=== PATIENT | female | born 1995 | race Two or more races ===

== ENCOUNTER 2016-11-03 08:06 | Outpatient (CLI) | payer OTHER ==
[2016-11-03 08:41] LABS: APPEARANCE,URINE SLIGHTLY-CLOUDY; BILIRUBIN,URINE NEGATIVE (NEGATIVE); GLUCOSE, URINE NEGATIVE (NEGATIVE); KETONES,URINE NEGATIVE (NEGATIVE); LEUKOCYTE ESTERASE,URINE MODERATE (NEGATIVE); NITRITE,URINE NEGATIVE (NEGATIVE); PROTEIN,URINE 30 mg/dL (NEGATIVE); URINE SPECIFIC GRAVITY 1.023; UROBILINOGEN,URINE NEGATIVE mg/dL (<2.0)
[2016-11-03 09:10] LABS: URINE BARBITURATES SCREEN NEGATIVE; URINE METHADONE SCREEN NEGATIVE; URINE OPIATES LOW NEGATIVE; URINE PHENCYCLIDINE SCREEN NEGATIVE
--- NOTE | 2016-11-03 09:18 | Non Stress Test Report ---
Non Stress Test Datetime Report Generated by CPN: 11/03/2016 09:18 DEMOGRAPHIC EGA NST: 38.0 INDICATION Indication for Study: Ordered by Provider Indication for Study (NST) Other: LC MONITORING Monitor Explained: Monitor Explained; Test Explained; Patient Verbalized Understanding Time on Monitor: 11/03/2016 08:23 Time off Monitor: 11/03/2016 08:59 NST Duration: 36 NST INTERVENTIONS NST Interventions: PO Hydration; Reposition Patient Physician Notified NST: KElizabet Miller CNM BABY A: [id number] BABY A Movement : Present Contraction Frequency : irreguar FHR Baseline : 150 Accelerations : 15X15 Decelerations : None Variability : Moderate 6-25bpm NST Review: Meets Criteria for Reactive NST NST Review and Verified By : Aubree Sahni RN NST Results: Reactive NST REPORT Report Trigger: Send Report
--- NOTE | 2016-11-03 22:47 | L&D Discharge Summary ---
OB Discharge Summary Datetime Report Generated by CPN: 11/03/2016 22:46 DISCHARGE DIAGNOSIS Diagnosis/Symptoms: False Labor Gestation: 38.0 Number of Babies in Womb: 1 Parity: 0 DIET/ACTIVITY/RESTRICTIONS Diet: Regular Activity: Normal Activity TEACHING/INSTRUCTIONS/REFERRALS Instructions Given To: Patient/ Instructions Understood: Patient Verbalized Understanding; Support Person Verbalized Understanding Referrals: None Educational Materials- Other: Kick [facility] Full Term Labor DISCHARGE INFORMATION Discharged AMA: No Discharge Date/Time: 11/03/2016 10:20 Discharged To: Home Discharge Provider Name: Patrick Miller CNM Accompanied By: Discharge Method: Ambulatory Condition: Stable FOLLOW UP INFORMATION Follow Up With: [facility] Follow Up On: As Scheduled Follow Up Phone Number: [facility] - GENERAL INSTR-CALL PROVIDER IF: Contractions: Contractions or cramps become more frequent than 8 in one hour or 4 in 20 minutes; Regular painful contractions every 5 minutes or less for one hour. Time your contractions from the beginning of one to the beginning of the next Pressure: Pressure in your vagina or lower abdomen that may feel like the baby is pushing down Gush of Fluid/Blood: Gush of fluid or blood from your vagina (it is normal to have spotting after vaginal exam or intercourse) Vaginal Discharge: Change in the type or amount of vaginal discharge Decreased Movement: Your baby is not moving as much as usual- 4 movements in 1 hour after drinking and resting on side
--- NOTE | 2016-11-08 14:33 | L&D General Admission ---
General Admit Datetime Report Generated by CPN: 11/08/2016 14:33 INFORMATION Patient Age: 20 (11/03/2016 08:06:QS system process) EDC: 11/17/2016 00:00 (11/03/2016 08:29:Noris Broman, RN) : 1 (11/03/2016 08:29:Noris Broman, RN) Para: 0 (11/03/2016 08:29:Noris Broman, RN) CARE Primary Cash Crop Farmer: [facility] (11/03/2016 08:29:Noris Merino RN) Adequate Care: Yes (11/03/2016 08:29:Noris Merino RN) ALLERGIES Medication Allergy: No (11/03/2016 08:29:Noris Merino RN) Medication Allergies: No Known Allergies (11/03/2016) (11/03/2016 08:32:QS system process) Latex Allergy: No Latex Allergies (11/03/2016 08:29:Noris Merino RN) COMMUNICATION Primary Language: Citizen Of [place] (11/03/2016 08:29:Noris Merino RN) Medical Tx Preferred Language: Citizen Of [place] (11/03/2016 08:29:Kristin Sahni RN) DEMOGRAPHICS Address: [address] [place] [address] (11/03/2016 08:06:QS system process) Zipcode: [address] (11/03/2016 08:06:QS system process) Home (11/03/2016 08:06:QS system process) SSN: [id number] (11/03/2016 08:06:QS system process) Next of Kin Name: EHSAN MCCOLLUM (11/03/2016 08:06:QS system process) Next of Kin (11/03/2016 08:06:QS system process) Next of Kin Relationship: SPO (11/03/2016 08:06:QS system process) Date of : 1995 (11/03/2016 08:06:QS system process) Marital Status: (11/03/2016 08:06:QS system process) Sex: Female (11/03/2016 08:06:QS system process) Race: Other (11/03/2016 08:06:QS system process) Ethnicity: or (11/03/2016 08:06:QS system process) Spiritism: None (11/03/2016 08:06:QS system process) DRUG AND ALCOHOL USE Alcohol: No (11/03/2016 08:29:Noris Merino RN) Cigarettes: Never Smoker. [id number] (11/03/2016 08:29:Noris Merino RN) Marijuana: No (11/03/2016 08:29:Noris Merino RN) Cocaine: No (11/03/2016 08:29:Noris Merino RN) Other Illicit Drugs: No (11/03/2016 08:29:Noris Merino RN) VACCINE HISTORY Influenza Vaccine: Yes (11/03/2016 08:29:Noris Merino RN) Influenza Date: 06/02/16 (11/03/2016 08:29:Noris Merino RN) Pneumococcal Vaccine: No (11/03/2016 08:29:Noris Merino RN) Tetanus Vaccine: Yes (11/03/2016 08:29:Noris Merino RN) Tetanus Date: 08/25/16 (11/03/2016 08:29:Noris Merino RN) Tdap Vaccine: Yes (11/03/2016 08:29:Noris Merino RN) Tdap Date: 08/25/16 (11/03/2016 08:29:Noris Merino RN) Hepatitis B Vaccine: Uncertain (11/03/2016 08:29:Noris Merino RN) Fruit Or Nut Farm Worker: [facility] (11/03/2016 08:29:Noris Merino RN) Feeding Preference: Breast (11/03/2016 08:29:Noris Merino RN) Benefit of Breast Feed Discussed: Yes (11/03/2016 08:29:Noris Merino RN) Circumcision: Yes (11/03/2016 08:29:Noris Merino RN) Classes Attended: No (11/03/2016 08:29:Noris Merino RN) Tubal Ligation: No (11/03/2016 08:29:Noris Merino RN) Tubal Authorization Signed: N/A (11/03/2016 08:29:Noris Merino RN) Consent: N/A (11/03/2016 08:29:Noris Merino RN) Consent Signed: N/A (11/03/2016 08:29:Noris Merino RN) Pain Management Plans: Epidural (11/03/2016 08:29:Noris Merino RN) Plans for Labor and Delivery: Cord Blood Donation (11/03/2016 08:29:Noris Merino RN) Support Person: Ehsan Mccollum (11/03/2016 08:29:Noris Merino RN) Support Person Relationship: (11/03/2016 08:29:Noris Merino RN) Cultural/Spritual Practice: No (11/03/2016 08:29:Noris Merino RN) Spir/Cult Dietary Needs: No (11/03/2016 08:29:Noris Merino RN) LIVING SITUATION/DISCHARGE PLAN Living Arrangements: House (11/03/2016 08:29:Noris Merino RN) Adequate Access to:: Electric; Heat; Refrigeration; Plumbing/Running water; Phone; Transportation (11/03/2016 08:29:Noris Merino RN) WIC Program: No (11/03/2016 08:29:Noris Merino RN) Discharge [place]keshoe Repairer Person: Ehsan Mccollum (11/03/2016 08:29:Noris Merino RN) Person to Help after Discharge: Ehsan Mccollum (11/03/2016 08:29:Noris Merino RN) Currently Using Commun Resources: No (11/03/2016 08:29:Noris Merino RN) Outside Agency/Senior Procurement Specialist: No (11/03/2016 08:29:Noris Merino RN) Car Seat for Discharge: Yes (11/03/2016 08:29:Noris Merino RN) Adoption Requested: No (11/03/2016 08:29:Noris Merino RN) LABS Blood Type: O Positive (11/03/2016 08:29:Noris Merino RN) Antibody Screen: Negative (11/03/2016 08:29:Noris Merino RN) Group Beta Strep: Negative (11/03/2016 08:29:Noris Merino RN) Gonorrhea: Negative (11/03/2016 08:29:Noris Merino RN) Chlamydia: Negative (11/03/2016 08:29:Noris Merino RN) RPR/VDRL: Nonreactive (11/03/2016 08:29:Noris Merino RN) HIV Results: Negative (11/03/2016 08:29:Noris Merino RN) Hepatitis B: Negative (11/03/2016 08:29:Noris Merino RN) Rubella: Immune (11/03/2016 08:29:Noris Merino RN) OB/PREVIOUS HISTORY Previous Procedures: None (11/03/2016 08:29:Noris Merino RN) Current Procedures: Ultrasound; NST (11/03/2016 08:29:Noris Merino RN) History of Previous : No (11/03/2016 08:29:Noris Merino RN) History of Gestational Diabetes: Yes (11/03/2016 08:29:Noris Merino RN) History of PIH: No (11/03/2016 08:29:Noris Merino RN) History of Incompetent Cervix: No (11/03/2016 08:29:Noris Merino RN) History of Placenta Previa/Abrup: No (11/03/2016 08:29:Noris Merino RN) History of Macrosomia: No (11/03/2016 08:29:Noris Merino RN) History of IUGR: No (11/03/2016 08:29:Noris Merino RN) History of Hemorrhage: No (11/03/2016 08:29:Noris Merino RN) History of Loss/Stillborn: No (11/03/2016 08:29:Noris Merino RN) History of : No (11/03/2016 08:29:Noris Merino RN) History of D (Rh) Sensitization: No (11/03/2016 08:29:Noris Merino RN) History Recurrent Loss/Stillborn: No (11/03/2016 08:29:Noris Merino RN) History Depression/PP Depression: No (11/03/2016 08:29:Noris Merino RN) History of Uterine Anomaly/HIRO: No (11/03/2016 08:29:Noris Merino RN) History of Infertility: No (11/03/2016 08:29:Noris Merino RN) History of ART Treatment: No (11/03/2016 08:29:Noris Merino RN) History of HIRO: No (11/03/2016 08:29:Noris Merino RN) MEDICAL HISTORY Med Hx Hypertension: No (11/03/2016 08:29:Noris Merino RN) Med Hx Heart Disease: No (11/03/2016 08:29:Noris Merino RN) Med Hx Autoimmune Disorder: No (11/03/2016 08:29:Noris Merino RN) Med Hx Kidney Disease/UTI: No (11/03/2016 08:29:Noris Merino RN) Med Hx Neurologic/Epilepsy: No (11/03/2016 08:29:Noris Merino RN) Med Hx Psychiatric Disorders: No (11/03/2016 08:29:Noris Merino RN) Med Hx Hepatitis/Liver Disease: No (11/03/2016 08:29:Noris Merino RN) Med Hx Varicosities/Phlebitis: No (11/03/2016 08:29:Noris Merino RN) Med Hx Thyroid Dysfunction: No (11/03/2016 08:29:Noris Merino RN) Med Hx Trauma/Violence: No (11/03/2016 08:29:Noris Merino RN) Med Hx Blood Transfusion: No (11/03/2016 08:29:Noris Merino RN) Med Hx Pulmonary (Asthma,TB): No (11/03/2016 08:29:Noris Merino RN) Med Hx Breast: No (11/03/2016 08:29:Noris Merino RN) Med Hx VASCULAR TECH Surgery: No (11/03/2016 08:29:Noris Merino RN) Med Hx Hospitalization/Surgery: No (11/03/2016 08:29:Nrois Merino RN) Med Hx Anesthetic Complications: No (11/03/2016 08:29:Noris Merino RN) Med Hx Abnormal Pap Smear: No (11/03/2016 08:29:Noris Merino RN) Other Medical Diseases: No (11/03/2016 08:29:Noris Merino RN) Med Hx Significant Family Hx: No (11/03/2016 08:29:Noris Merino RN) INFECTIOUS HISTORY Inf Hx Gonorrhea: No (11/03/2016 08:29:Noris Merino RN) Inf Hx Chlamydia: No (11/03/2016 08:29:Noris Merino RN) Inf Hx Syphilis: No (11/03/2016 08:29:Noris Merino RN) Inf Hx HIV/AIDS: No (11/03/2016 08:29:Noris Merino RN) Inf Hx Human Papilloma Virus: No (11/03/2016 08:29:Noris Merino RN) Inf Hx Pt/Partner Genital Herpes: No (11/03/2016 08:29:Noris Merino RN) Inf Hx Tuberculosis/Exposure: No (11/03/2016 08:29:Noris Merino RN) Inf Hx Hepatitis B,C: No (11/03/2016 08:29:Noris Merino RN) Inf Hx Rash or Viral Illness: No (11/03/2016 08:29:Noris Merino RN) GENETIC HISTORY Gen Hx Age >=35 at DAYANARA: No (11/03/2016 08:29:Noris Merino RN) Gen Hx Thalassemia: No (11/03/2016 08:29:Noris Merino RN) Gen Hx Congenital Heart Defect: No (11/03/2016 08:29:Noris Merino RN) Gen Hx Neural Tube Defect: No (11/03/2016 08:29:Noris Merino RN) Gen Hx Down's Syndrome: No (11/03/2016 08:29:Noris Merino RN) Gen Hx Osmany-Sachs: No (11/03/2016 08:29:Noris Merino RN) Gen Hx Lucila: No (11/03/2016 08:29:Noris Merino RN) Gen Hx Familial Dysautonomia: No (11/03/2016 08:29:Noris Merino RN) Gen Hx Sickle Cell Disease/Trait: No (11/03/2016 08:29:Noris Merino RN) Gen Hx Hemophilia/Blood Disorder: No (11/03/2016 08:29:Noris Merino RN) Gen Hx Muscular Dystrophy: No (11/03/2016 08:29:Noris Merino RN) Gen Hx Cystic Fibrosis: No (11/03/2016 08:29:Noris Mernio RN) Gen Hx Huntingtons Chorea: No (11/03/2016 08:29:Noris Merino RN) Gen Hx Mental Retardation/Autism: No (11/03/2016 08:29:Noris Merino RN) Gen Hx Tested for Fragile X: No (11/03/2016 08:29:Noris Merino RN) Gen Hx Other Inher/Chromosomal: No (11/03/2016 08:29:Noris Merino RN) Gen Hx Maternal Metabolic DO: No (11/03/2016 08:29:Noris Merino RN) Gen Hx Pt Father or FOB Defect: No (11/03/2016 08:29:Noris Merino RN) Gen Hx Other Genetic History: No (11/03/2016 08:29:Noris Merino RN) Gen Hx Drugs/Meds since LMP: No (11/03/2016 08:29:Noris Merino RN)
--- NOTE | 2016-11-08 14:33 | L&D Current Admission ---
Current Admit Datetime Report Generated by CPN: 11/08/2016 14:33 ADMISSION INFORMATION Chief Complaint: Contractions (11/03/2016 08:45:Noris Merino RN)
--- NOTE | 2016-11-08 14:34 | L&D Admission Assessment ---
LD ADM ASMT Datetime Report Generated by CPN: 11/08/2016 14:33 PATIENT ASSESSMENT Assessment Type: Admission Assessment (11/03/2016 08:45:Noris Brommontserrat, RN) PAIN Pain Scale: 1 (11/03/2016 08:45:Noris Wilber, RN) Pain Presence: Intermittent (11/03/2016 08:45:Noris Wilber, RN) Pain Type: Cramping; Contraction (11/03/2016 08:45:Noris Wilber RN) Pain Location: Abdomen (11/03/2016 08:45:Noris Broman, RN) Pain Goal: 0 (11/03/2016 08:45:Noris Brommontserrat, RN) Pain Related to Contraction: Yes (11/03/2016 08:45:Noris Brommontserrat, RN) CONTRACTIONS Frequency (min): irregular (11/03/2016 08:49:Noris Brommontserrat, RN) Quality: Mild/Moderate (11/03/2016 08:49:Noris Broman, RN) Pattern: Normal: <= 5 Contractions in 10 Minutes (11/03/2016 08:49:Noris Broman, RN) Resting Tone [place] [address]: Relaxed (11/03/2016 08:49:Noris Broman, RN) VAGINAL EXAM Dilatation (cm): 2.5 (11/03/2016 10:02:Noris Merino RN) Dilatation (cm): 2.5 (11/03/2016 08:36:Kristin Sahni RN) Effacement (%): 80 (11/03/2016 10:02:Noris Merino RN) Effacement (%): 80 (11/03/2016 08:36:Kristin Kaitlyn, RN) Station: -2 (11/03/2016 10:02:Noris Broman, RN) Station: -2 (11/03/2016 08:36:Kristin Kaitlyn, RN) Membranes Status: Intact (11/03/2016 08:45:Noris Broman, RN) NEURO Level of Consciousness: Fully Conscious (11/03/2016 08:45:Noris Broman, RN) DTR's/Clonus: DTRs 2+; No Clonus (11/03/2016 08:45:Noris Broman, RN) Headache: Denies (11/03/2016 08:45:Noris Broman, RN) Dizziness: No (11/03/2016 08:45:Noris Broman, RN) Blurred Vision: No (11/03/2016 08:45:Noris Broman, RN) Extremity Numbness/Tingling : None (11/03/2016 08:45:Noris Broman, RN) Extremity Movement: Full Range of Motion (11/03/2016 08:45:Noris Broman, RN) CARDIOVASCULAR Heart Rhythm: Regular (11/03/2016 08:45:Noris Broman, RN) Nailbeds: [place] (11/03/2016 08:45:Noris Broman, RN) Capillary Refill: Less than 3 Seconds (11/03/2016 08:45:Noris Broman, RN) Lower Extremities Edema: None (11/03/2016 08:45:Noris Broman, RN) Lower Extremities Edema Degree: None (11/03/2016 08:45:Noris Broman, RN) Upper Extremities Edema: None (11/03/2016 08:45:Noris Broman, RN) Upper Extremities Edema Degree: None (11/03/2016 08:45:Noris Broman, RN) Facial Edema: None (11/03/2016 08:45:Noris Broman, RN) DVT RISK ASSESSMENT DVT Risk Age: Age less than 41 years (11/03/2016 08:45:Noris Broman, RN) DVT Risk BMI: BMI<31 (11/03/2016 08:45:Noris Broman, RN) DVT Risk Surgery: None Applicable (11/03/2016 08:45:Noris Broman, RN) RESPIRATORY Respiratory Effort: Unlabored; Regular Rhythm; Equal Expansion (11/03/2016 08:45:Noris Broman, RN) Breath Sounds, Left: Clear and Equal (11/03/2016 08:45:Noris Broman, RN) Breath Sounds, Right: Clear and Equal (11/03/2016 08:45:Noris Broman, RN) Cough Productivity: None (11/03/2016 08:45:Noris Broman, RN) GASTROINTESTINAL Nausea/Vomiting: Denies (11/03/2016 08:45:Noris Broman, RN) Bowel Sounds: Normoactive; All Quadrants (11/03/2016 08:45:Noris Broman, RN) RUQ Epigastric Pain: Denies (11/03/2016 08:45:Noris Broman, RN) Bowel Patterns: Loose Stool (11/03/2016 08:45:Noris Broman, RN) Hemorrhoids: None (11/03/2016 08:45:Noris Broman, RN) Diet Type: Regular diet (11/03/2016 08:45:Noris Broman, RN) Last Meal: 11/02/2016 21:00 (11/03/2016 08:45:Noris Broman, RN) GENITOURINARY Bladder: Nondistended (11/03/2016 08:45:Noris Brommontserrat, RN) Frequency of Urination: Yes (11/03/2016 08:45:Noriswilbert Merino, RN) Urination Burning: No (11/03/2016 08:45:Noris Broman, RN) CVA Tenderness: No (11/03/2016 08:45:Noris Brommontserrat, RN) Vaginal Bleeding: None (11/03/2016 08:45:Noris Brommontserrat, RN) Vaginal Discharge Amount: Small (11/03/2016 08:45:Nrois Brommontserrat, RN) Vaginal Discharge Color: White (11/03/2016 08:45:Noris Brommontserrat, RN) Vaginal Discharge Odor: Non-Odorous (11/03/2016 08:45:Noris Brommontserrat, RN) Vaginal Discharge Character: Thin (11/03/2016 08:45:Noris Broman, RN) INTEGUMENTARY Skin Color: Normal for Race (11/03/2016 08:45:Noris Brommontserrat, RN) Skin Temperature: Warm (11/03/2016 08:45:Noris Broman, RN) Skin Moisture: Dry (11/03/2016 08:45:Noris Brommontserrat, RN) Body Piercings/Tattoos: 4 tattoos (11/03/2016 08:45:Noris Brommontserrat, RN) SAFETY Call Schultz Within Reach: Yes (11/03/2016 08:45:Noris Broman, RN) Side Rails Up: Yes (11/03/2016 08:45:Noris Broman, RN) Bed Wheels Locked: Yes (11/03/2016 08:45:Noris Broman, RN) Arm Bands Present: Yes (11/03/2016 08:45:Noris Broman, RN) Isolation: [place] (11/03/2016 08:45:Noris Broman, RN) BABY A FHR Baseline Rate (bpm) Baby A: 150 (11/03/2016 08:49:Noriswilbert Merino RN) Variability Baby A: Moderate 6-25 bpm (11/03/2016 08:49:Noris Merino RN) Accelerations Baby A: 15X15 (11/03/2016 08:49:Noris Merino RN) Decelerations Baby A: None (11/03/2016 08:49:Noris Merino RN)
--- NOTE | 2016-11-08 14:34 | L&D Flow Sheet ---
LD Flowsheet Datetime Report Generated by CPN: 11/08/2016 14:33 Datetime: 11/03/2016 10:07 Communication Communication Comments: K. Miller CNM notified of pts complaints, NST, and vag exam, order received for discharge and for pt to keep currently scheduled appointment (Noris Broman, RN) Datetime: 11/03/2016 10:05 Vital Signs NBP Sys/[place]/Mean (mmHg): 115 (QS system process) : 59 (QS system process) : 80 (QS system process) Pulse: 90 (QS system process) Datetime: 11/03/2016 10:02 Vaginal Exam Dilatation (cm): 2.5 (Noris Broman, RN) Effacement (%): 80 (Noris Broman, RN) Station: -2 (Noris Broman, RN) Exam by: A. Kaitlyn RN/MElizabet Merino RN (Noris Broman, RN) Datetime: 11/03/2016 09:50 Vital Signs NBP Sys/[place]/Mean (mmHg): 114 (QS system process) : 63 (QS system process) : 82 (QS system process) Pulse: 96 (QS system process) Datetime: 11/03/2016 09:49 Patient Care Patient Position/Activity: Left Tilt (Noris Broman, RN) Patient Care Comments: pt back in bed at this time, pt states contractions felt better when up moving (Noris Broman, RN) Datetime: 11/03/2016 09:00 Patient Care Comments: pt off monitor to walk in barrow for 1 hr (Noris Broman, RN) Datetime: 11/03/2016 08:57 Vital Signs NBP Sys/[place]/Mean (mmHg): 109 (QS system process) : 55 (QS system process) : 79 (QS system process) Pulse: 86 (QS system process) Datetime: 11/03/2016 08:49 Uterine Activity Monitor Mode: External; Palpation (Noris Broman, RN) Frequency (min): irregular (Noris Broman, RN) Quality: Mild/Moderate (Noris Broman, RN) Duration Criteria: Less than Two 120 Second Contractions (Noris Broman, RN) Pattern: Normal: <= 5 Contractions in 10 Minutes (Noris Broman, RN) Resting Tone (Palpate): Relaxed (Noris Broman, RN) Assessment A Monitor Mode: External US (Noris Broman, RN) Monitor Interventions for FHR: Ultrasound Adjusted (Noris Broman, RN) FHR Baseline Rate : 150 (Noris Broman, RN) Variability: Moderate 6-25 bpm (Noris Broman, RN) Accelerations: 15X15 (Noris Broman, RN) Decelerations: None (Noris Broman, RN) Datetime: 11/03/2016 08:45 Pain Pain Scale: 1 (Noris Broman, RN) Pain Presence: Intermittent (Noris Broman, RN) Pain Type: Cramping; Contraction (Noris Broman, RN) Pain Location: Abdomen (Noris Broman, RN) Pain Goal: 0 (Noris Broman, RN) Pain Relief Measures: Comfort Measures (Noris Broman, RN) Pain Coping: Talking Through Contractions (Noris Broman, RN) Membrane Status: Intact (Noris Broman, RN) Vaginal Bleeding: None (Noris Broman, RN) Maternal Assessment Level of Consciousness: Fully Conscious (Noris Broman, RN) DTR's/Clonus: DTRs 2+; No Clonus (Noris Broman, RN) Headache: Denies (Noris Broman, RN) Breath Sounds, Left: Clear and Equal (Noris Broman, RN) Breath Sounds, Right: Clear and Equal (Noris Broman, RN) Nausea/Vomiting: Denies (Noris Broman, RN) RUQ Epigastric Pain: Denies (Noris Broman, RN) Datetime: 11/03/2016 08:40 Vital Signs NBP Sys/[place]/Mean (mmHg): 105 (QS system process) : 55 (QS system process) : 75 (QS system process) Pulse: 84 (QS system process) Datetime: 11/03/2016 08:36 Vaginal Exam Dilatation (cm): 2.5 (Kristin Kaitlyn, RN) Effacement (%): 80 (Kristin Kaitlyn, RN) Station: -2 (Kristin Kaitlyn, RN) Exam by: A. Kaitlyn RN (Kristin Kaitlyn, RN) Datetime: 11/03/2016 08:25 Vital Signs NBP Sys/[place]/Mean (mmHg): 120 (QS system process) : 58 (QS system process) : 83 (QS system process) Pulse: 96 (QS system process) Datetime: 11/03/2016 08:23 Monitor Interventions for UA: [place] Adjusted (Noris Wilber, RN) Monitor Interventions for FHR: Ultrasound Adjusted (Noris Broman, RN) Patient Care Patient Position/Activity: Left Tilt (Noris Merino, RN)
--- NOTE | 2016-11-08 14:34 | L&D Discharge Summary ---
OB Discharge Summary Datetime Report Generated by CPN: 11/08/2016 14:34 DISCHARGE DIAGNOSIS Diagnosis/Symptoms: False Labor Gestation: 38.0 Number of Babies in Womb: 1 Parity: 0 DIET/ACTIVITY/RESTRICTIONS Diet: Regular Activity: Normal Activity TEACHING/INSTRUCTIONS/REFERRALS Instructions Given To: Patient/ Instructions Understood: Patient Verbalized Understanding; Support Person Verbalized Understanding Referrals: None Educational Materials- Other: [facility] Full Term Labor DISCHARGE INFORMATION Discharged AMA: No Discharge Date/Time: 11/03/2016 10:20 Discharged To: Home Discharge Provider Name: Patrick Miller CNM Accompanied By: Discharge Method: Ambulatory Condition: Stable FOLLOW UP INFORMATION Follow Up With: [facility] Follow Up On: As Scheduled Follow Up Phone Number: [facility] - GENERAL INSTR-CALL PROVIDER IF: Contractions: Contractions or cramps become more frequent than 8 in one hour or 4 in 20 minutes; Regular painful contractions every 5 minutes or less for one hour. Time your contractions from the beginning of one to the beginning of the next Pressure: Pressure in your vagina or lower abdomen that may feel like the baby is pushing down Gush of Fluid/Blood: Gush of fluid or blood from your vagina (it is normal to have spotting after vaginal exam or intercourse) Vaginal Discharge: Change in the type or amount of vaginal discharge Decreased Movement: Your baby is not moving as much as usual- 4 movements in 1 hour after drinking and resting on side
== END 2016-11-03 10:20 | disposition home or self-care (01) ==
LOC: LC 08:06
PROVIDERS: ATTEND Specialist
PROC: 4A1HXCZ Monitoring of Products of Conception, Cardiac Rate, External Approach (ICD-10-PCS; principal; 2016-11-03)
DX: O47.1 False labor at or after 37 completed weeks of gestation (principal); Z3A.38 38 weeks gestation of pregnancy
CPT/HCPCS: 59025; 80307; 81005

== ENCOUNTER 2016-11-03 11:33 | Inpatient (IN) | payer OTHER ==
[2016-11-03 12:49] LABS: ABSOLUTE BASOPHILS # (AUTO) 0.1 10^3/uL (0.0-0.2); ABSOLUTE EOSINOPHILS # (AUTO) 0.1 10^3/uL (0.0-0.6); ABSOLUTE LYMPHOCYTES (AUTO) 2.9 10^3/uL (0.5-4.7); ABSOLUTE MONOCYTES (AUTO) 1.1 10^3/uL (0.1-1.4); ABSOLUTE NEUT (AUTO) 14.7 10^3/uL (1.7-8.2); BASOPHILS % (AUTO) 0.3 % (0-2); EOSINOPHILS % (AUTO) 0.5 % (0-6); HEMATOCRIT 30.8 % (36.0-47.0); HEMOGLOBIN 10.1 g/dL (12.0-15.5); HGB HCT DIFFERENCE -0.5; LYMPHOCYTES % (AUTO) 15.5 % (13-45); MEAN CORPUSCULAR HEMOGLOBIN 28.4 pg (27.0-33.4); MEAN CORPUSCULAR HGB CONC 32.8 g/dL (32.0-36.0); MEAN CORPUSCULAR VOLUME 87 fl (80-97); MONOCYTES % (AUTO) 5.8 % (3-13); RED BLOOD COUNT 3.56 10^6/uL (3.72-5.28); RED CELL DISTRIBUTION WIDTH 15.4 % (11.5-14.0); SEGMENTED NEUTROPHILS % (AUTO) 77.9 % (42-78); WHITE BLOOD COUNT 18.9 10^3/uL (4.0-10.5)
[2016-11-03] MEDS ORDERED: EPHEDRINE SULFATE INJ 50 MG/1 ML AMPULE ONE (12:59)
[2016-11-03] MEDS ORDERED: PHENYLEPHRINE HCL INJ/PF 10 MG/1 ML SDV ONE (12:59)
[2016-11-03] MEDS ORDERED: FENTANYL CITRATE INJ/PF 100 MCG/2 ML AMPUL ONE (12:59)
[2016-11-03] MEDS ORDERED: FENTANYL/BUPIVACAINE/NS/PF 200 MCG/100 ML RTUINJ EPI ONE (13:00)
[2016-11-03] MEDS ORDERED: BUPIVACAINE HCL 0.25 % INJ/PF (2.5 MG/1 ML) 30 ML VIAL ONE (13:00)
[2016-11-03] MEDS ORDERED: OXYTOCIN/NORMAL SALINE 20 UNIT/1,000 ML RTUINJ ONE (16:00)
[2016-11-03] MEDS ORDERED: MISOPROSTOL 0.2 MG TABLET ONE (16:00)
[2016-11-03] MEDS ORDERED: LIDOCAINE 1% INJ-PF (10 MG/ML) 30 ML SDV ONE (16:00)
[2016-11-03] MEDS ORDERED: METHYLERGONOVINE MALEATE INJ/PF 0.2 MG/1 ML AMPULE ONE (17:22)
[2016-11-03] MEDS ORDERED: MEASLES,MUMPS&RUBELLA VACC/PF 0.5 ML VIAL SUBCUT PRN (17:38)
[2016-11-03] MEDS ORDERED: ZOLPIDEM TARTRATE 5 MG TABLET PO PRN (17:38)
[2016-11-03] MEDS ORDERED: DIBUCAINE 1% OINTMENT 28 GM TP PRN (17:38)
[2016-11-03] MEDS ORDERED: DIPH/PERTUSS(ACELL)/TETANUS VAC/PF 0.5 ML SYR (>=10YO) IM PRN (17:38)
[2016-11-03] MEDS ORDERED: OXYTOCIN/NORMAL SALINE 1,000 ML IV PRN (17:38)
[2016-11-03] MEDS ORDERED: BENZOCAINE/MENTHOL AEROSOL SPRAY 56 ML TOP PRN (17:38)
[2016-11-03] MEDS ORDERED: ACETAMINOPHEN WITH CODEINE #3 TABLET PO PRN ×2 (17:38)
--- NOTE | 2016-11-03 18:51 | Delivery Summary ---
Del Sum A-C Datetime Report Generated by CPN: 11/03/2016 18:51 DELIVERY PERSONNEL DELIVERY PERSONNEL: [phone];[id number] Delivery Doctor:: Rufina Yin MD Labor and Delivery Nurse:: Kristin Sahni RNpress setup operator Nurse:: Noris Merino RN Hvac Project Manager/RESEARCH AND EVALUATION ANALYST: Kristen Knapp CNA II Additional Personnel: : GIRISH Ramírez MATERNAL INFORMATION Delivery Anesthesia: Local; Epidural Medications After Delivery: Pitocin Bolus-Please Comment; Methergine 0.2mg IM; Other-Please Comment Meds After Delivery Comment: pitocin 20 units in 1000 ml nss open for bolus, Cytotec 1000 mcg rectal , methergin 0.2 mg im to left thigh Estimated Blood Loss (ml): 500 Maternal Complications: None Provider Comments: Pt preogressed to of male infant with apgars 9 and 9. Head delivered OA. Shoulders and body delivered easily. CRACKLING PRESS OPERATOR/OP bulb suctioned. Cord clamped and cut. Placenta spont and intact. Cytotec 1000mcg pr and methergine 1 amp IM given due to intiial uterine atony. Now firm and lochia light. LABOR SUMMARY EDC: 11/17/2016 00:00 No. Babies in Womb: 1 Attempted: No Labor Anesthesia: Epidural LABOR INFORMATION Reason for Induction: Not Applicable Onset of Labor: 11/03/2016 10:30 Complete Dilatation: 11/03/2016 16:26 Oxytocin: N/A Group B Beta Strep: Negative Antibiotics # of Doses: 0 Steroids Given: None Reason Steroids Not Administered: Not Applicable MEMBRANES Membranes Rupture Method: Artificial Rupture of Membranes: 11/03/2016 14:05 Length of Rupture (hr): 3.17 Amniotic Fluid Color: Clear Amniotic Fluid Amount: Moderate Amniotic Fluid Odor: None STAGES OF LABOR Stage 1 hr: 5 Stage 1 min: 56 Stage 2 hr: 0 Stage 2 min: 49 Stage 3 hr: 0 Stage 3 min: 2 Total Time in Labor hr: 6 Total Time in Labor min: 47 VAGINAL DELIVERY Episiotomy: None Laceration Extension: First Degree Other Laceration: right labial Laceration Repair: Yes Laceration Repair Note: with 1 poercent lidocaine and 3-0 chromic Sponge Count Correct: N/A Sharps Count Correct: N/A CSECTION DELIVERY Primary Indication: N/A Secondary Indication: N/A CSection Incidence: N/A Labor: N/A Elective: N/A CSection Incision: N/A BABY A INFORMATION Delivery Date/Time: 11/03/2016 17:15 Method of Delivery: Vaginal Born in Route : No : N/A Forceps: N/A Vacuum Extraction: N/A Shoulder Dystocia : No PRESENTATION/POSITION BABY A Presentation: Cephalic Cephalic Presentation: Vertex Vertex Position: Right Occipital Anterior Breech Presentation: N/A PLACENTA INFORMATION BABY A Placenta Delivery Time : 11/03/2016 17:17 Placenta Method of Delivery: Spontaneous Placenta Status: Delivered SCORES BABY A Heart Rate 1 min: >100 bpm Resp Effort 1 min: Good Cry Reflex Irritability 1 min: Cough or Sneeze or Pulls Away Muscle Tone 1 min: Active Motion Color 1 min: Body [place], Extremities Blue Resuscitation Effort 1 min: Tactile Stimulation SCORE 1 MIN: 9 Heart Rate 5 min: >100 bpm Resp Effort 5 min: Good Cry Reflex Irritability 5 min: Cough or Sneeze or Pulls Away Muscle Tone 5 min: Active Motion Color 5 min: Body [place], Extremities Blue Resuscitation Effort 5 min: N/A SCORE 5 MIN: 9 Resuscitation Effort 10 min: N/A INFORMATION BABY A Gestational Age at Delivery: 38.0 Gestational Status: Early Term- 37- 38.6 Weeks Infant Outcome : Liveborn Infant Condition : Stable Infant Sex: Male IDENTIFICATION BABY A Infant Verification Date/Time: 11/03/2016 17:29 ID Band Number: [id number] Mother's Name Verified: Yes Infant RN Verifying : Elsy Alburgh Additional Verifying Personnel: D Miguel US WEIGHT/LENGTH BABY A Infant Birthweight (gm): 3010 Infant Weight (lb): 6 Weight (oz): 10 Length (in): 19.50 Length (cm): 49.53 CORD INFORMATION BABY A No. Cord Vessels: 3 Nuchal Cord : N/A Cord Blood Taken: Yes-For Eval (Mom's Blood Type - or O+) Infant Suction: Mouth; Nose ASSESSMENT BABY A Infant Complications: None Physical Findings at Delivery: Within Normal Limits Infant Respirations: Appears Normal Skin to Skin: Yes Skin to Skin Time (min): 60 Sign Artist/ALS Called : No Infant Care By: a donnie, rn Transferred To: Remains with Mother BABY B INFORMATION : N/A SIGNATURES Signature: with User ID: [email or web address] : I was personally available for consultation and serving as supervising physician for the P.
[2016-11-03] MEDS ORDERED: IBUPROFEN 800 MG TABLET PO SCH ×2 (19:00→22:00)
[2016-11-03] MEDS ORDERED: IBUPROFEN 800 MG TABLET ONE (19:10)
--- NOTE | 2016-11-03 19:48 | Admission Physical ---
Datetime Report Generated by CPN: 11/03/2016 19:47 CURRENT ADMISSION Chief Complaint: Uterine Contractions Indication for Induction: Not Applicable Admit Plan: Initiate Labor Protocol Admit Plan- Other: GBS neg GDM diet controlled ALLERGIES Medication Allergies: No Medication Allergies: No Known Allergies (11/03/2016) Latex: No Latex Allergies OBSTETRICAL HISTORY EDC: 11/17/2016 00:00 : 1 Para: 0 Term: 0 : 0 SAB: 0 IAB: 0 Ectopic: 0 Livin Cesareans: 0 VBACs: 0 Multiple Births: 0 Gestational Diabetes: Yes Rh Sensitization: No Incompetent Cervix: No HIRO: No Infertility: No ART Treatment: No Uterine Anomaly: No IUGR: No Hx Previous C/S: No Macrosomia: No Hx Loss/Stillborn: No PIH: No Hx : No Placenta Previa/Abruption: No Depression/PP Depression: No PTL/PROM: No Post Hemorrhage: No Current Procedures: Ultrasound; NST SEE RECORDS Alcohol: No Marijuana : No Cocaine: No Other Illicit Drugs: No Cigarettes: Never Smoker. [id number] MEDICAL HISTORY Diabetes: Yes Diabetes Type: Gestational Diabetes Blood Transfusion: No Pulmonary Disease (Asthma, TB): No Breast Disease: No Hypertension: No Rn Iv Therapy Surgery: No Heart Disease: No Hosp/Surgery: No Autoimmune Disorder: No Anesthetic Complications: No Kidney Disease: No Abnormal Pap Smear: No Neuro/Epilepsy: No Psychiatric Disorders: No Other Medical Diseases: No Hepatitis/Liver Disease: No Significant Family History: No Varicosities/Phlebitis: No Trauma/Violence : No Thyroid Dysfunction: No Medical History Comments: GDM-diet controlled INFECTIOUS HISTORY Gonorrhea: No Genital Herpes: No Chlamydia: No Tuberculosis: No Syphilis: No Hepatitis: No HIV/AIDS Exposure: No Rash or Viral Illness: No HPV: No PHYSICAL EXAM General: Normal HEENT: Deferred Neurologic: Deferred Thyroid: Normal Heart: Normal Lungs: Normal Breast: Deferred Back: Deferred Abdomen: Normal Genitourinary Exam: Deferred Extremities: Deferred DTRs: Deferred Pelvic Type: Adequate Vital Signs: Reviewed VAGINAL EXAM Dilatation: 5 Effacement: 90 Station: -1 FETUS A EGA: 38.0 Monitoring: External US FHR- Baseline: 155 Variability: Moderate 6-25bpm Accelerations: 15X15 Presentation: Vertex Admit Comment: membranes intact PLANS FOR LABOR AND DELIVERY Labor and Delivery: Cord Blood Donation Pain Management: Epidural Feeding Preference: Breast Benefit of Breast Feed Discussed: Yes Circumcision: Yes INFORMED CONSENT Assignment: Rufina Yin MD Signature: with User ID: [email or web address] : with User ID: [email or web address]
[2016-11-03] MEDS: FERROUS SULFATE 325 MG TABLET PO SCH (21:22)
[2016-11-03] MEDS: DOCUSATE SODIUM 100 MG CAPSULE PO SCH (21:22)
[2016-11-04] MEDS: IBUPROFEN 800 MG TABLET PO SCH ×2 (05:03→17:47)
[2016-11-04 07:48] LABS: HEMOGLOBIN 9.2 g/dL (12.0-15.5); HGB HCT DIFFERENCE -0.4; MEAN CORPUSCULAR HEMOGLOBIN 28.3 pg (27.0-33.4); MEAN CORPUSCULAR HGB CONC 32.8 g/dL (32.0-36.0); MEAN CORPUSCULAR VOLUME 86 fl (80-97); RED BLOOD COUNT 3.24 10^6/uL (3.72-5.28); RED CELL DISTRIBUTION WIDTH 15.8 % (11.5-14.0); WHITE BLOOD COUNT 18.4 10^3/uL (4.0-10.5)
[2016-11-04] MEDS: SENNOSIDES/DOCUSATE 8.6-50 MG 1 EACH TABLET PO SCH (10:23)
[2016-11-04] MEDS: PRENATAL VITAMIN W-O CA NO5/FE FUMARATE/FA CAPSULE PO SCH (10:23)
[2016-11-04] MEDS: FERROUS SULFATE 325 MG TABLET PO SCH ×2 (10:23→17:34)
[2016-11-04] MEDS: DOCUSATE SODIUM 100 MG CAPSULE PO SCH ×2 (10:24→17:34)
--- NOTE | 2016-11-04 14:13 | PDOC PROGRESS REPORT ---
Subjective-OB Subjective: Post Delivery Day:1 20 year old G1 now P1 s/p ppd 1. Denies any needs at this time Physical Exam (OB) Vital Signs: Temp Pulse Resp BP Pulse Ox 98.1 F 71 17 109/62 99 11/04/16 07:31 11/04/16 07:31 11/04/16 07:31 11/04/16 07:31 11/04/16 07:31 Intake & Output 11/03/16 11/04/16 11/05/16 06:59 06:59 06:59 Weight 75.342 kg - General General Appearance: Appears well In distress: None - PIH/Pre-Eclampsia Clonus: Negative Headache: Absent - Lochia Lochia Amount: Scant < 10 ml Lochia Color: Rubra/Red - Abdomen Description: Soft Hernia Present: No Fundal Description: Firm, Midline Fundal Height: u/u - u/2 - Respiratory Respiratory Status: No respiratory distress - Extremities Upper extremity: Normal inspection Lower extremities: Normal inspection - Neurological Cognition: Normal Orientation: AAOx4 - Psychological Associated symptoms: Normal affect, Normal mood Objective-Diagnostic Laboratory: 11/04/16 07:30 11/03/16 11/03/16 11/04/16 12:37 12:37 07:30 WBC 18.9 H 18.4 H RBC 3.56 L 3.24 L Hgb 10.1 L 9.2 L Hct 30.8 L 28.0 L MCV 87 86 MCH 28.4 28.3 MCHC 32.8 32.8 RDW 15.4 H 15.8 H Plt Count 246 237 Seg Neutrophils % 77.9 Lymphocytes % 15.5 Monocytes % 5.8 Eosinophils % 0.5 Basophils % 0.3 Absolute Neutrophils 14.7 H Absolute Lymphocytes 2.9 Absolute Monocytes 1.1 Absolute Eosinophils 0.1 Absolute Basophils 0.1 Blood Type O POSITIVE Antibody Screen NEGATIVE Assessment and Plan(PN) - Assessment and Plan (1) Delivery normal Is this a current diagnosis for this admission?: YesPlan: continue stay (2) Anemia Qualifiers: Anemia type: unspecified type Qualified Code(s): D64.9 - Anemia, unspecified Is this a current diagnosis for this admission?: YesPlan: iron supplementation - Time Spent with Patient Time with patient: Less than 15 minutes Medications reviewed and adjusted accordingly: Yes - Disposition Anticipated Discharge: Home Within: within 24 hours
[2016-11-05] MEDS: IBUPROFEN 800 MG TABLET PO SCH ×2 (07:04→15:51)
[2016-11-05 07:19] LABS: ABSOLUTE BASOPHILS # (AUTO) 0.1 10^3/uL (0.0-0.2); ABSOLUTE EOSINOPHILS # (AUTO) 0.4 10^3/uL (0.0-0.6); ABSOLUTE LYMPHOCYTES (AUTO) 3.2 10^3/uL (0.5-4.7); ABSOLUTE MONOCYTES (AUTO) 0.7 10^3/uL (0.1-1.4); ABSOLUTE NEUT (AUTO) 10.6 10^3/uL (1.7-8.2); BASOPHILS % (AUTO) 0.4 % (0-2); EOSINOPHILS % (AUTO) 2.5 % (0-6); HEMATOCRIT 27.7 % (36.0-47.0); HEMOGLOBIN 9.1 g/dL (12.0-15.5); HGB HCT DIFFERENCE -0.4; LYMPHOCYTES % (AUTO) 21.2 % (13-45); MEAN CORPUSCULAR HEMOGLOBIN 28.6 pg (27.0-33.4); MEAN CORPUSCULAR HGB CONC 32.9 g/dL (32.0-36.0); MEAN CORPUSCULAR VOLUME 87 fl (80-97); MONOCYTES % (AUTO) 4.5 % (3-13); RED BLOOD COUNT 3.19 10^6/uL (3.72-5.28); RED CELL DISTRIBUTION WIDTH 15.6 % (11.5-14.0); SEGMENTED NEUTROPHILS % (AUTO) 71.4 % (42-78); WHITE BLOOD COUNT 14.9 10^3/uL (4.0-10.5)
[2016-11-05 08:06] VITALS: BP 115/60
--- NOTE | 2016-11-05 08:44 | PDOC PROGRESS REPORT ---
Subjective-OB Subjective: Post Delivery Day: 20 year old. Denies any needs at this time Doing well, ready to go home, hsb at BS, Breast feeding, voiding well, scant bleeding Physical Exam (OB) Vital Signs: Temp Pulse Resp BP Pulse Ox 98.1 F 77 18 115/60 98 11/05/16 08:01 11/05/16 08:01 11/05/16 08:01 11/05/16 08:01 11/05/16 08:01 Intake & Output 11/04/16 11/05/16 11/06/16 06:59 06:59 06:59 Weight 75.342 kg - PIH/Pre-Eclampsia Clonus: Negative Headache: Absent - Lochia Lochia Amount: Small 10-25 ml Lochia Color: Rubra/Red - Abdomen Description: Soft, Round Hernia Present: No Fundal Description: Firm, Midline Fundal Height: u/u - u/2 Objective-Diagnostic Laboratory: 11/05/16 06:36 11/05/16 06:36 WBC 14.9 H RBC 3.19 L Hgb 9.1 L Hct 27.7 L MCV 87 MCH 28.6 MCHC 32.9 RDW 15.6 H Plt Count 265 Seg Neutrophils % 71.4 Lymphocytes % 21.2 Monocytes % 4.5 Eosinophils % 2.5 Basophils % 0.4 Absolute Neutrophils 10.6 H Absolute Lymphocytes 3.2 Absolute Monocytes 0.7 Absolute Eosinophils 0.4 Absolute Basophils 0.1 Assessment and Plan(PN) - Assessment and Plan (1) Anemia Qualifiers: Anemia type: unspecified type Qualified Code(s): D64.9 - Anemia, unspecified Is this a current diagnosis for this admission?: Yes (2) Delivery normal Is this a current diagnosis for this admission?: Yes - Time Spent with Patient Time with patient: Less than 15 minutes Medications reviewed and adjusted accordingly: Yes - Disposition Anticipated Discharge: Home Within: Other - home today
--- NOTE | 2016-11-05 08:50 | PDOC DISCHARGE SUMMARY ---
Final Diagnosis Discharge Date: 11/05/16 - Final Diagnosis (1) Anemia Is this a current diagnosis for this admission?: Yes (2) Delivery normal Is this a current diagnosis for this admission?: Yes Discharge Data - Discharge Medication Home Medications: Ferrous Sulfate [Iron] 325 mg PO DAILY 11/03/16 Vit/Iron Fumarate/FA [ Tablet] 1 each PO DAILY 11/03/16 Ferrous Sulfate [Feosol 325 mg Tablet] 325 mg PO BID #0 tablet 11/05/16 Gestational Age: 38 Reason(s) for Admission: Onset of Labor, Gestional Diabetes Procedures: Cerciage, NST, Ultrasound Intrapartum Procedure(s): Spontaneous Vaginal Delivery Complication(s): Laceration-Labial Laceration-Degree: 1st - [place] Data Baby 1 Male at 1 minute: 9 at 5 minutes: 9 Weight: 3.005 kg Home with Mother: Yes Complications: No - Diagnosis Test Laboratory: Temp Pulse Resp BP Pulse Ox 98.1 F 77 18 115/60 98 11/05/16 08:01 11/05/16 08:01 11/05/16 08:01 11/05/16 08:01 11/05/16 08:01 11/03/16 11/04/16 11/05/16 12:37 07:30 06:36 RBC 3.56 L 3.24 L 3.19 L Hgb 10.1 L 9.2 L 9.1 L Hct 30.8 L 28.0 L 27.7 L - Discharge information/Instructions Discharge Activity: Activity As Tolerated, No Lifting Over 10 Pounds, Pelvic Rest, No tub bath Discharge Diet: As Tolerated, Regular Disposition: HOME, SELF-CARE Follow up with: [facility] in: 4, Weeks
[2016-11-05] MEDS: DOCUSATE SODIUM 100 MG CAPSULE PO SCH ×2 (10:20→17:45)
[2016-11-05] MEDS: FERROUS SULFATE 325 MG TABLET PO SCH ×2 (10:20→17:44)
[2016-11-05] MEDS: SENNOSIDES/DOCUSATE 8.6-50 MG 1 EACH TABLET PO SCH (10:20)
[2016-11-05] MEDS: PRENATAL VITAMIN W-O CA NO5/FE FUMARATE/FA CAPSULE PO SCH (10:20)
--- NOTE | 2016-11-08 14:28 | L&D Current Admission ---
Current Admit Datetime Report Generated by CPN: 11/08/2016 14:28 ADMISSION INFORMATION Current Admit Date/Time: 11/03/2016 11:27 (11/03/2016 11:36:Noris Merino RN) Reason for Admission: Onset of Labor (11/03/2016 11:36:Noris Merino RN) Chief Complaint: Contractions (11/03/2016 11:34:Noris Merino RN) Chief Complaint: Contractions (11/03/2016 08:45:Noris Merino RN) Method of Arrival: Ambulatory (11/03/2016 11:36:Noris Merino RN) Admitted From: Dr. Office (11/03/2016 11:36:Noris Merino RN) Reason for Induction: Not Applicable (11/03/2016 11:36:Noris Merino RN) Records Available: Yes (11/03/2016 11:36:Noris Merino RN) General Admission Information: Reviewed; Confirmed (11/03/2016 11:36:Noris Merino RN) BELONGINGS/ADVANCED DIRECTIVES Valuables/Personal Effects: Jewelry (11/03/2016 11:36:Noris Merino RN) Disposition of Belongings: Kept with Patient (11/03/2016 11:36:Noris Merino RN) Advance Direct for Healthcare: No, and Wants No Information (11/03/2016 11:36:Noris Merino RN) Durable Power of Salesperson Recreational Vehicles: No (11/03/2016 11:36:Noris Merino RN) Living Will: No (11/03/2016 11:36:Noris Merino RN) Organ Donor: No (11/03/2016 11:36:Noris Merino RN) Pt Rights Information Given: Yes (11/03/2016 11:36:Noris Merino RN) Pt Understands Pt Rights: Yes (11/03/2016 11:36:Noris Merino RN) LEARNING ASSESSMENT Knowledge Level: Understands L_D Process (11/03/2016 11:36:Noris Merino RN) Barriers to Learning: None (11/03/2016 11:36:Noris Merino RN) Learning Readiness: Motivated (11/03/2016 11:36:Noris Merino RN) Learns Best By: 1 to 1 Instruction (11/03/2016 11:36:Noris Merino RN) Learning Needs: Labor and Delivery Process; Pain Management; Symptoms to Report; Treatment Plan; Medication; Diagnosis; Nutrition; Equipment; Infant Care; Community Resources (11/03/2016 11:36:Noris Merino RN) DOMESTIC VIOLANCE SCREENING Dom Viol Threatened/Hurt: No (11/03/2016 11:36:Noris Merino RN) Hx of Abuse/Neglect past 2yrs: No (11/03/2016 11:36:Noris Merino RN) Feel Unsafe Going Home: No (11/03/2016 11:36:Noris Merino RN) Addt'l Observ Indicating Abuse: No (11/03/2016 11:36:Noris Merino RN) Considered Personal Harm/Suicide: No (11/03/2016 11:36:Noris Merino RN) NUTRITIONAL/FUNCTIONAL SCREENING Problem with Appetite >5 Days: No (11/03/2016 11:36:Noris Merino RN) Chew/Swallow Difficulties: No (11/03/2016 11:36:Noris Merino RN) Inappropriate Wt Gain/Loss: No (11/03/2016 11:36:Noris Merino RN) Presence Skin Breakdown/Ulcer: No (11/03/2016 11:36:Noris Merino RN) Special Diet: No (11/03/2016 11:36:Noris Merino RN) Pt Requests Podiatry Professor Visit: No (11/03/2016 11:36:Noris Merino RN) Hx of Any of the Following?: N/A (11/03/2016 11:36:Noris Merino RN) New Diagnosis of: Gest Diabetes (11/03/2016 11:36:Noris Merino RN) Requires Assist w/Ambulation: No (11/03/2016 11:36:Noris Merino RN) Uses Assist Device to Ambulate: No (11/03/2016 11:36:Noris Merino RN) Pt Requires Help w/ADL's: No (11/03/2016 11:36:Noris Merino RN)
--- NOTE | 2016-11-08 14:29 | L&D Care Plan ---
LD CARE PLANS Datetime Report Generated by CPN: 11/08/2016 14:29 Datetime: 11/03/2016 12:44 Pain State: Risk For (Noris Merino RN) Related To: Labor and Delivery Process (Noris Merino RN) Goal(s): Patients Pain will be Assessed and Managed; Patient will Verbalize Adequate Relief of Pain or the Ability to [place] with Current Pain (Noris Merino RN) Interventions: Assess Pain Severity on Scale of 0 (None) to 5 (Severe); Assess Type, Location and Intensity of Pain Each Time Client Reports Discomfort and Notify Provider if Unusal Pain Develops; Encourage Proper Breathing and Relaxation Techniques; Offer Alternatives Such as Repositioning, Calm Environment, Massages, Diversional Activities, Ice Pack, Splinting, and Ambulation; Administer Analgesics as Ordered; Assist with Epidural Placement as Appropriate (Noris Merino RN) Outcome: Patient will Report Absence or Relief of Pain Consistent with Established Pain Goal (Noris Merino RN) Status: Ongoing (Noris Merino RN) Outcome: Patient will have a Decrease in Signs and Symptoms of Discomfort (Noris Merino RN) Status: Ongoing (Noris Merino RN) Outcome: Pain will be Controlled During Procedures (Noris Merino RN) Status: Ongoing (Noris Merino RN) Anxiety State: Risk For (Noris Merino RN) Related To: Labor and Delivery Process (Noris Merino RN) Goal(s): Patient will have Decreased Anxiety and be able to Function at Acceptable Levels (Noris Merino RN) Interventions: Assess Verbal and Nonverbal Behavioral Indicators of Anxiety; Assist Patient to Identify and Verbalize Symptoms of Anxiety; Identify and Demonstrate Techniques to Control Anxiety; Assist Patient with Coping Mechanisms to Manage Anxiety; Explain to Patient, Using a Calm Reassuring Approach and Nonmedical Terms, All Activities, Procedures, and Concerns (Noris Merino RN) Outcome: Patient will Identify, Verbalize and Demonstrate Techniques to Control Anxiety (Noris Merino RN) Status: Ongoing (Noris Merino RN) Outcome: Patient's Posture, Facial Expressions, Gestures and Activity Level will Reflect Decreased Anxiety (Noris Merino RN) Status: Ongoing (Noris Merino RN) Outcome: Patient will Verbalize a Sense of Control and/or Acceptance of the Situation (Noris Merino RN) Status: Ongoing (Noris Merino RN) Outcome: Patient will Identify and Utilize Support Person (Noris Merino RN) Status: Ongoing (Noris Merino RN) Knowledge Deficit State: Risk For (Noris Merino RN) Related To: Labor and Delivery Process; Treatment and Procedures; Feeding and Care (Noris Merino RN) Goal(s): Patient will Accurately Verbalize Understanding of Plan of Care and Treatment; Patient and Family will Accurately Verbalize Understanding of the Disease Process (Noris Merino RN) Interventions: Assess Motivation and Willingness of Patient/Family to Learn; Assess Preferred Learning Mode: One to One Instruction, Reading, Videos, Group Discussion or Demonstration; Assess Barriers to Learning: Pain, Emotional State, Language Barrier, Cognitive Impairment, Visual or Hearing Deficits; Discuss Therapy and/or Treatment Options, Describe Rationale Behind Management, Therapy and Treatment Recommendations; Instruct Patient and Family on Signs and Symptoms to Report; Give Clear and Thorough Explanations and Demonstrations (Noris Merino RN) Outcome: Patient and Family will Verbalize Understanding of Condition, Treatment and Signs and Symptoms to Report (Noris Merino RN) Status: Ongoing (Noris Merino RN) Outcome: Patient will Identify Perceived Learning Needs and Express Motivation to Learn (Noris Merino RN) Status: Ongoing (Noris Merino RN) Outcome: Patient will Verbalize Understanding of Desired Content, and/or Performs Desired Skill Prior to Discharge (Noris Merino RN) Status: Ongoing (Noris Merino RN) Infection State: Risk For (Noris Merino RN) Related To: Invasive Procedures (Noris Merino RN) Goal(s): The Patient will be Free of Infection, Vital Signs Stable and Lab Work within Normal Parameters (Noris Merino RN) Interventions: Instruct and Reinforce Proper Handwashing, Hygiene, and Care Techniques to Patient and Family; Monitor Vital Signs; Monitor Patient for the Following Signs of Infection: Fever, Abdominal Tenderness, Unusual Discharge; Assess IV Sites per Hospital Policy; Monitor Lab and Test Results and Notify Provider of Abnormal Findings (Noris Merino RN) Outcome: Patient will Remain Free of Infection (Noris Merino RN) Status: Ongoing (Noris Merino RN) Outcome: Infection will be Recognized Early to Allow for Prompt Treatment (Noris Merino RN) Status: Ongoing (Noris Merino RN) Outcome: Patient will have Vital Signs Within Expected Range (Noris Merino RN) Status: Ongoing (Noris Merino RN) Fluid Volume State: Not Applicable (Noris Merino RN) Injury State: Risk For (Noris Merino RN) Related To: Labor and Delivery Process (Noris Merino RN) Goal(s): Patient will Remain Free from Injury (Noris Merino RN) Interventions: Monitoring as per Hospital Protocol; Assess Neurological Status; Perform Fall Risk Assessment and Prevention per Hospital Protocol; Perform DVT Risk Assessment and Prophylaxis per Hospital Protocol; Ensure that Oxygen, Suction, and Resuscitation Medications and Equipment are Readily Available; Confirm Patient ID Prior to Procedure(s) and Medication Administration per Hospital Policy (Noris Merino RN) Outcome: Successful Fall Risk Prevention (Noris Merino RN) Status: Ongoing (Noris Merino RN) Outcome: Patient will Deliver Infant without Adverse Sequela (Noris Merino RN) Status: Ongoing (Noris Merino RN) Outcome: Patient's Neurological Status will Remain Stable (Noris Merino RN) Status: Ongoing (Noris Merino RN) Impaired Skin Integrity State: Risk For (Noris Merino RN) Related To: Vaginal Delivery (Noris Merino RN) Goal(s): Patient will Maintain Optimal Skin Integrity, Free of Breakdown, Injury or Infection (Noris Merino RN) Interventions: Monitor Site of Skin Impairment for Color Changes, Redness, Swelling, Warmth, Pain or Other Signs of Infection; Encourage and Assist with Position Changes; Monitor Patient's Mobility Status; Provide Adequate Nutrition and Fluids (Noris Merino RN) Outcome: Patient will not have Evidence of Injury Such as Skin Breakdown, Scrapes, Cuts, or Bruising (Noris Merino RN) Status: Ongoing (Noris Merino RN) Outcome: Patient will Report Any Altered Sensation or Pain at Site of Skin Impairment (Noris Merino RN) Status: Ongoing (Noris Merino RN) Outcome: Patients Incisions and Wounds will be without Signs or Symptoms of Infection (Noris Merino RN) Status: Ongoing (Noris Merino RN) Outcome: Patient will Demonstrate Understanding of Plan to Heal Skin and Prevent Reinjury and Verbalize Risk Factors (Noris Merino RN) Status: Ongoing (Noris Merino RN) Parenting Impaired State: Not Applicable (Noris Merino RN) Nutrition State: Risk For (Noris Merino RN) Related To: ; (Noris Merino RN) Goal(s): Patient will have an Intake of Nutrients Sufficient to Meet Metabolic Needs (Noris Merino RN) Interventions: Nutritional Screening and Assessment per Hospital Policy; Allow Patient to Plan and Order Diet when Possible; Monitor Laboratory Values That Indicate Nutritional Well-being; Document Actual Weight Initially and Weekly (Do Not Estimate); Educate Patient on the Importance of Maintaining an Adequate Caloric Intake (Noris Merino RN) Outcome: Patient will Receive Adequate Calories and Fluid Volume to Meet Metabolic Needs (Noris Merino RN) Status: Ongoing (Noris Merino RN) Outcome: Patient will Select Foods or Meals that Support Adequate Nutrition (Noris Merino RN) Status: Ongoing (Noris Merino RN) Grieving State: Not Applicable (Noris Merino RN) Additional Care Plan State: Not Applicable (Noris Merino RN) Datetime: 11/03/2016 12:37 Pain State: Risk For (Noris Merino RN) Related To: Labor and Delivery Process (Noris Merino RN) Goal(s): Patients Pain will be Assessed and Managed; Patient will Verbalize Adequate Relief of Pain or the Ability to [place] with Current Pain (Noris Merino RN) Interventions: Assess Pain Severity on Scale of 0 (None) to 5 (Severe); Assess Type, Location and Intensity of Pain Each Time Client Reports Discomfort and Notify Provider if Unusal Pain Develops; Encourage Proper Breathing and Relaxation Techniques; Offer Alternatives Such as Repositioning, Calm Environment, Massages, Diversional Activities, Ice Pack, Splinting, and Ambulation; Administer Analgesics as Ordered; Assist with Epidural Placement as Appropriate (Noris Merino RN) Outcome: Patient will Report Absence or Relief of Pain Consistent with Established Pain Goal (Noris Merino RN) Status: Ongoing (Noris Merino RN) Outcome: Patient will have a Decrease in Signs and Symptoms of Discomfort (Noris Merino RN) Status: Ongoing (Noris Merino RN) Outcome: Pain will be Controlled During Procedures (Noris Merino RN) Status: Ongoing (Noris Merino RN) Anxiety State: Risk For (Noris Merino RN) Related To: Labor and Delivery Process (Noris Merino RN) Goal(s): Patient will have Decreased Anxiety and be able to Function at Acceptable Levels (Noris Merino RN) Interventions: Assess Verbal and Nonverbal Behavioral Indicators of Anxiety; Assist Patient to Identify and Verbalize Symptoms of Anxiety; Identify and Demonstrate Techniques to Control Anxiety; Assist Patient with Coping Mechanisms to Manage Anxiety; Explain to Patient, Using a Calm Reassuring Approach and Nonmedical Terms, All Activities, Procedures, and Concerns (Noris Merino RN) Outcome: Patient will Identify, Verbalize and Demonstrate Techniques to Control Anxiety (Noris Merino RN) Status: Ongoing (Noris eMrino RN) Outcome: Patient's Posture, Facial Expressions, Gestures and Activity Level will Reflect Decreased Anxiety (Noris Merino RN) Status: Ongoing (Noris Merino RN) Outcome: Patient will Verbalize a Sense of Control and/or Acceptance of the Situation (Noris Merino RN) Status: Ongoing (Noris Merino RN) Outcome: Patient will Identify and Utilize Support Person (Noris Merino RN) Status: Ongoing (Noris Merino RN) Knowledge Deficit State: Risk For (Noris Merino RN) Related To: Labor and Delivery Process; Treatment and Procedures; Feeding and Care (Noris Merino RN) Goal(s): Patient will Accurately Verbalize Understanding of Plan of Care and Treatment; Patient and Family will Accurately Verbalize Understanding of the Disease Process (Noris Merino RN) Interventions: Assess Motivation and Willingness of Patient/Family to Learn; Assess Preferred Learning Mode: One to One Instruction, Reading, Videos, Group Discussion or Demonstration; Assess Barriers to Learning: Pain, Emotional State, Language Barrier, Cognitive Impairment, Visual or Hearing Deficits; Discuss Therapy and/or Treatment Options, Describe Rationale Behind Management, Therapy and Treatment Recommendations; Instruct Patient and Family on Signs and Symptoms to Report; Give Clear and Thorough Explanations and Demonstrations (Noris Merino RN) Outcome: Patient and Family will Verbalize Understanding of Condition, Treatment and Signs and Symptoms to Report (Noris Merino RN) Status: Ongoing (Noris Merino RN) Outcome: Patient will Identify Perceived Learning Needs and Express Motivation to Learn (Noris Merino RN) Status: Ongoing (Noris Merino RN) Outcome: Patient will Verbalize Understanding of Desired Content, and/or Performs Desired Skill Prior to Discharge (Noris Merino RN) Status: Ongoing (Noris Merino RN) Infection State: Risk For (Noris Merino RN) Related To: Invasive Procedures (Noris Merino RN) Goal(s): The Patient will be Free of Infection, Vital Signs Stable and Lab Work within Normal Parameters (Noris Merino RN) Interventions: Instruct and Reinforce Proper Handwashing, Hygiene, and Care Techniques to Patient and Family; Monitor Vital Signs; Monitor Patient for the Following Signs of Infection: Fever, Abdominal Tenderness, Unusual Discharge; Assess IV Sites per Hospital Policy; Monitor Lab and Test Results and Notify Provider of Abnormal Findings (Noris Merino RN) Outcome: Patient will Remain Free of Infection (Noris Merino RN) Status: Ongoing (Noris Merino RN) Outcome: Infection will be Recognized Early to Allow for Prompt Treatment (Noris Merino RN) Status: Ongoing (Noris Merino RN) Outcome: Patient will have Vital Signs Within Expected Range (Noris Merino RN) Status: Ongoing (Noris Merino RN) Fluid Volume State: Not Applicable (Noris Merino RN) Injury State: Risk For (Noris Merino RN) Related To: Labor and Delivery Process (Noris Merino RN) Goal(s): Patient will Remain Free from Injury (Noris Merino RN) Interventions: Monitoring as per Hospital Protocol; Assess Neurological Status; Perform Fall Risk Assessment and Prevention per Hospital Protocol; Perform DVT Risk Assessment and Prophylaxis per Hospital Protocol; Ensure that Oxygen, Suction, and Resuscitation Medications and Equipment are Readily Available; Confirm Patient ID Prior to Procedure(s) and Medication Administration per Hospital Policy (Noris Merino RN) Outcome: Successful Fall Risk Prevention (Noris Merino RN) Status: Ongoing (Noris Merino RN) Outcome: Patient will Deliver Infant without Adverse [place] (Noris Merino RN) Status: Ongoing (Noris Merino RN) Outcome: Patient's Neurological Status will Remain Stable (Noris Merino RN) Status: Ongoing (Noris Merino RN) Impaired Skin Integrity State: Risk For (Noris Merino RN) Related To: Vaginal Delivery (Noris Merino RN) Goal(s): Patient will Maintain Optimal Skin Integrity, Free of Breakdown, Injury or Infection (Noris Merino RN) Interventions: Monitor Site of Skin Impairment for Color Changes, Redness, Swelling, Warmth, Pain or Other Signs of Infection; Encourage and Assist with Position Changes; Monitor Patient's Mobility Status; Provide Adequate Nutrition and Fluids (Noris Merino RN) Outcome: Patient will not have Evidence of Injury Such as Skin Breakdown, Scrapes, Cuts, or Bruising (Noris Merino RN) Status: Ongoing (Noris Merino RN) Outcome: Patient will Report Any Altered Sensation or Pain at Site of Skin Impairment (Noris Merino RN) Status: Ongoing (Noris Merino RN) Outcome: Patients Incisions and Wounds will be without Signs or Symptoms of Infection (Noris Merino RN) Status: Ongoing (Noris Merino RN) Outcome: Patient will Demonstrate Understanding of Plan to Heal Skin and Prevent Reinjury and Verbalize Risk Factors (Noris Merino RN) Status: Ongoing (Noris Merino RN) Parenting Impaired State: Not Applicable (Noris Brommontserrat, RN) Nutrition State: Risk For (Noris Merino RN) Related To: ; (Noris Merino RN) Goal(s): Patient will have an Intake of Nutrients Sufficient to Meet Metabolic Needs (Noris Merino RN) Interventions: Nutritional Screening and Assessment per Hospital Policy; Allow Patient to Plan and Order Diet when Possible; Monitor Laboratory Values That Indicate Nutritional Well-being; Document Actual Weight Initially and Weekly (Do Not Estimate); Educate Patient on the Importance of Maintaining an Adequate Caloric Intake (Noris Merino RN) Outcome: Patient will Receive Adequate Calories and Fluid Volume to Meet Metabolic Needs (Noris Merino RN) Status: Ongoing (Noris Merino RN) Outcome: Patient will Select Foods or Meals that Support Adequate Nutrition (Noris Merino RN) Status: Ongoing (Noris Merino RN) Grieving State: Not Applicable (Noris Broman, RN) Additional Care Plan State: Not Applicable (Noris Broman, RN)
--- NOTE | 2016-11-08 14:29 | L&D General Admission ---
General Admit Datetime Report Generated by CPN: 11/08/2016 14:28 INFORMATION Patient Age: 20 (11/03/2016 08:06:QS system process) EDC: 11/17/2016 00:00 (11/03/2016 08:29:Noris Broman, RN) : 1 (11/03/2016 08:29:Noris Broman, RN) Para: 0 (11/03/2016 08:29:Noris Broman, RN) CARE Primary Trailer Mechanic: [facility] (11/03/2016 08:29:Noris Merino RN) Adequate Care: Yes (11/03/2016 08:29:Noris Merino RN) ALLERGIES Medication Allergy: No (11/03/2016 08:29:Noris Merino RN) Medication Allergies: No Known Allergies (11/03/2016) (11/03/2016 08:32:QS system process) Latex Allergy: No Latex Allergies (11/03/2016 08:29:Noris Merino RN) COMMUNICATION Primary Language: [place] (11/03/2016 08:29:Noris Merino RN) Medical Tx Preferred Language: [place] (11/03/2016 08:29:Kristin Sahni RN) DEMOGRAPHICS Address: [address] [place] [address] (11/03/2016 08:06:QS system process) Zipcode: [address] (11/03/2016 08:06:QS system process) Home (11/03/2016 08:06:QS system process) SSN: [id number] (11/03/2016 08:06:QS system process) Next of Kin Name: EHSAN MCCOLLUM (11/03/2016 08:06:QS system process) Next of Kin (11/03/2016 08:06:QS system process) Next of Kin Relationship: SPO (11/03/2016 08:06:QS system process) Date of : 1995 (11/03/2016 08:06:QS system process) Marital Status: (11/03/2016 08:06:QS system process) Sex: Female (11/03/2016 08:06:QS system process) Race: Other (11/03/2016 08:06:QS system process) Ethnicity: or (11/03/2016 08:06:QS system process) Mu-Ism: None (11/03/2016 08:06:QS system process) DRUG AND ALCOHOL USE Alcohol: No (11/03/2016 08:29:Noris Merino RN) Cigarettes: Never Smoker. [id number] (11/03/2016 08:29:Noris Merino RN) Marijuana: No (11/03/2016 08:29:Noris Merino RN) Cocaine: No (11/03/2016 08:29:Noris Merino RN) Other Illicit Drugs: No (11/03/2016 08:29:Noris Merino RN) VACCINE HISTORY Influenza Vaccine: Yes (11/03/2016 08:29:Noris Merino RN) Influenza Date: 06/02/16 (11/03/2016 08:29:Noris Merino RN) Pneumococcal Vaccine: No (11/03/2016 08:29:Noris Merino RN) Tetanus Vaccine: Yes (11/03/2016 08:29:Noris Merino RN) Tetanus Date: 08/25/16 (11/03/2016 08:29:Noris Merino RN) Tdap Vaccine: Yes (11/03/2016 08:29:Noris Merino RN) Tdap Date: 08/25/16 (11/03/2016 08:29:Noris Merino RN) Hepatitis B Vaccine: Uncertain (11/03/2016 08:29:Noris Merino RN) 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[facility] (11/03/2016 08:29:Noris Merino RN) Feeding Preference: Breast (11/03/2016 08:29:Noris Merino RN) Benefit of Breast Feed Discussed: Yes (11/03/2016 08:29:Noris Merino RN) Circumcision: Yes (11/03/2016 08:29:Noris Merino RN) Classes Attended: No (11/03/2016 08:29:Noris Merino RN) Tubal Ligation: No (11/03/2016 08:29:Noris Merino RN) Tubal Authorization Signed: N/A (11/03/2016 08:29:Noris Merino RN) Consent: N/A (11/03/2016 08:29:Noris Merino RN) Consent Signed: N/A (11/03/2016 08:29:Noris Merino RN) Pain Management Plans: Epidural (11/03/2016 08:29:Noris Merino RN) Plans for Labor and Delivery: Cord Blood Donation (11/03/2016 08:29:Noris Merino RN) Support Person: Ehsan Mccollum (11/03/2016 08:29:Noris Merino RN) Support Person Relationship: (11/03/2016 08:29:Noris Merino RN) Cultural/Spritual Practice: No (11/03/2016 08:29:Noris Merino RN) Spir/Cult Dietary Needs: No (11/03/2016 08:29:Noris Mreino RN) LIVING SITUATION/DISCHARGE PLAN Living Arrangements: House (11/03/2016 08:29:Noris Merino RN) Adequate Access to:: Electric; Heat; Refrigeration; Plumbing/Running water; Phone; Transportation (11/03/2016 08:29:Noris Merino RN) WIC Program: No (11/03/2016 08:29:Noris Merino RN) Discharge Anodiser Person: Ehsan Mccollum (11/03/2016 08:29:Noris Merino RN) Person to Help after Discharge: Ehsan Mccollum (11/03/2016 08:29:Noris Merino RN) Currently Using Commun Resources: No (11/03/2016 08:29:Noris Merino RN) Outside Agency/Automobile Technician: No (11/03/2016 08:29:Noris Merino RN) Car Seat for Discharge: Yes (11/03/2016 08:29:Noris Merino RN) Adoption Requested: No (11/03/2016 08:29:Noris Merino RN) LABS Blood Type: O Positive (11/03/2016 08:29:Noris Merino RN) Antibody Screen: Negative (11/03/2016 08:29:Noris Merino RN) Hemoglobin: 10.1 L (11/03/2016 12:37:QS system process) Hematocrit: 30.8 L (11/03/2016 12:37:QS system process) MCV: 87 (11/03/2016 12:37:QS system process) Group Beta Strep: Negative (11/03/2016 08:29:Noris Merino RN) Gonorrhea: Negative (11/03/2016 08:29:Noris Merino RN) Chlamydia: Negative (11/03/2016 08:29:Noris Merino RN) RPR/VDRL: Nonreactive (11/03/2016 08:29:Noris Merino RN) HIV Results: Negative (11/03/2016 08:29:Noris Merino RN) Hepatitis B: Negative (11/03/2016 08:29:Noris Merino RN) Rubella: Immune (11/03/2016 08:29:Noris Merino RN) OB/PREVIOUS HISTORY Previous Procedures: None (11/03/2016 08:29:Noris Merino RN) Current Procedures: Ultrasound; NST (11/03/2016 08:29:Noris Merino RN) History of Previous : No (11/03/2016 08:29:Noris Merino RN) History of Gestational Diabetes: Yes (11/03/2016 08:29:Noris Merino RN) History of PIH: No (11/03/2016 08:29:Noris Merino RN) History of Incompetent Cervix: No (11/03/2016 08:29:Noris Merino RN) History of Placenta Previa/Abrup: No (11/03/2016 08:29:Noris Merino RN) History of Macrosomia: No (11/03/2016 08:29:Noris Merino RN) History of IUGR: No (11/03/2016 08:29:Noris Merino RN) History of Hemorrhage: No (11/03/2016 08:29:Noris Merino RN) History of Loss/Stillborn: No (11/03/2016 08:29:Noris Merino RN) History of : No (11/03/2016 08:29:Noris Merino RN) History of D (Rh) Sensitization: No (11/03/2016 08:29:Noris Merino RN) History Recurrent Loss/Stillborn: No (11/03/2016 08:29:Noris Merino RN) History Depression/PP Depression: No (11/03/2016 08:29:Noris Merino RN) History of Uterine Anomaly/HIRO: No (11/03/2016 08:29:Noris Merino RN) History of Infertility: No (11/03/2016 08:29:Noris Merino RN) History of ART Treatment: No (11/03/2016 08:29:Noris Merino RN) History of HIRO: No (11/03/2016 08:29:Noris Merino RN) MEDICAL HISTORY Med Hx Hypertension: No (11/03/2016 08:29:Noris Merino RN) Med Hx Heart Disease: No (11/03/2016 08:29:Noris Merino RN) Med Hx Autoimmune Disorder: No (11/03/2016 08:29:Noris Merino RN) Med Hx Kidney Disease/UTI: No (11/03/2016 08:29:Noris Merino RN) Med Hx Neurologic/Epilepsy: No (11/03/2016 08:29:Noris Merino RN) Med Hx Psychiatric Disorders: No (11/03/2016 08:29:Noris Merino RN) Med Hx Hepatitis/Liver Disease: No (11/03/2016 08:29:Noris Merino RN) Med Hx Varicosities/Phlebitis: No (11/03/2016 08:29:Noris Merino RN) Med Hx Thyroid Dysfunction: No (11/03/2016 08:29:Noris Merino RN) Med Hx Trauma/Violence: No (11/03/2016 08:29:Noris Merion RN) Med Hx Blood Transfusion: No (11/03/2016 08:29:Noris Merino RN) Med Hx Pulmonary (Asthma,TB): No (11/03/2016 08:29:Noris Merino RN) Med Hx Breast: No (11/03/2016 08:29:Noris Merino RN) Med Hx SUPERINTENDENT OF GENERATION Surgery: No (11/03/2016 08:29:Noris Merino RN) Med Hx Hospitalization/Surgery: No (11/03/2016 08:29:Noris Merino RN) Med Hx Anesthetic Complications: No (11/03/2016 08:29:Noris Merino RN) Med Hx Abnormal Pap Smear: No (11/03/2016 08:29:Noris Merino RN) Other Medical Diseases: No (11/03/2016 08:29:Noris Merino RN) Med Hx Significant Family Hx: No (11/03/2016 08:29:Noris Merino RN) INFECTIOUS HISTORY Inf Hx Gonorrhea: No (11/03/2016 08:29:Noris Merino RN) Inf Hx Chlamydia: No (11/03/2016 08:29:Noris Merino RN) Inf Hx Syphilis: No (11/03/2016 08:29:Noris Merino RN) Inf Hx HIV/AIDS: No (11/03/2016 08:29:Noris Merino RN) Inf Hx Human Papilloma Virus: No (11/03/2016 08:29:Noris Merino RN) Inf Hx Pt/Partner Genital Herpes: No (11/03/2016 08:29:Noris Merino RN) Inf Hx Tuberculosis/Exposure: No (11/03/2016 08:29:Noris Merino RN) Inf Hx Hepatitis B,C: No (11/03/2016 08:29:Noris Merino RN) Inf Hx Rash or Viral Illness: No (11/03/2016 08:29:Noris Merino RN) GENETIC HISTORY Gen Hx Age >=35 at DAY[place]: No (11/03/2016 08:29:Noris Merino RN) Gen Hx Thalassemia: No (11/03/2016 08:29:Noris Merino RN) Gen Hx Congenital Heart Defect: No (11/03/2016 08:29:Noris Merino RN) Gen Hx Neural Tube Defect: No (11/03/2016 08:29:Noris Merino RN) Gen Hx Down's Syndrome: No (11/03/2016 08:29:Noris Merino RN) Gen Hx Osmany-Sachs: No (11/03/2016 08:29:Noris Merino RN) Gen Hx Lucila: No (11/03/2016 08:29:Noris Merino RN) Gen Hx Familial Dysautonomia: No (11/03/2016 08:29:Noris Merino RN) Gen Hx Sickle Cell Disease/Trait: No (11/03/2016 08:29:Noris Merino RN) Gen Hx Hemophilia/Blood Disorder: No (11/03/2016 08:29:Noris Merino RN) Gen Hx Muscular Dystrophy: No (11/03/2016 08:29:Noris Merino RN) Gen Hx Cystic Fibrosis: No (11/03/2016 08:29:Noris Merino RN) Gen Hx Huntingtons Chorea: No (11/03/2016 08:29:Noris Merino RN) Gen Hx Mental Retardation/Autism: No (11/03/2016 08:29:Noris Merino RN) Gen Hx Tested for Fragile X: No (11/03/2016 08:29:Noris Merino RN) Gen Hx Other Inher/Chromosomal: No (11/03/2016 08:29:Noris Merino RN) Gen Hx Maternal Metabolic DO: No (11/03/2016 08:29:Noris Merino RN) Gen Hx Pt Father or FOB Defect: No (11/03/2016 08:29:Noris Merino RN) Gen Hx Other Genetic History: No (11/03/2016 08:29:Noris Merino RN) Gen Hx Drugs/Meds since LMP: No (11/03/2016 08:29:Noris Merino RN)
--- NOTE | 2016-11-08 14:29 | L&D Admission Assessment ---
LD ADM ASMT Datetime Report Generated by CPN: 11/08/2016 14:29 Assessment Type: Admission Assessment (11/03/2016 11:34:Noris Merino RN) Onset of Labor: 11/03/2016 10:30 (11/03/2016 11:34:Noris Merino RN) Pain Scale: 2 (11/03/2016 11:34:Noris Merino RN) Pain Presence: Intermittent (11/03/2016 11:34:Noris Merino RN) Pain Type: Cramping; Contraction (11/03/2016 11:34:Noris Merino RN) Pain Location: Abdomen (11/03/2016 11:34:Noris Merino RN) Pain Goal: 0 (11/03/2016 11:34:Noris Merino RN) Pain Related to Contraction: Yes (11/03/2016 11:34:Noris Merino RN) Frequency (min): irregular (11/03/2016 11:34:Noris Merino RN) Duration (sec): 60-90 (11/03/2016 11:34:Noris Merino RN) Quality: Mild (11/03/2016 11:34:Noris Merino RN) Pattern: Normal: <= 5 Contractions in 10 Minutes (11/03/2016 11:34:Noris Merino RN) Resting Tone [place]: Relaxed (11/03/2016 11:34:Noris Merino RN) Dilatation (cm): 5.0 (11/03/2016 11:44:Noris Merino RN) Effacement (%): 90 (11/03/2016 11:44:Noris Merion RN) Station: -1 (11/03/2016 11:44:Noris Merino RN) Level of Consciousness: Fully Conscious (11/03/2016 11:34:Noris Merino RN) DTR's/Clonus: DTRs 2+; No Clonus (11/03/2016 11:34:Noris Merino RN) Headache: Denies (11/03/2016 11:34:Noris Merino RN) Dizziness: No (11/03/2016 11:34:Noris Merino RN) Blurred Vision: No (11/03/2016 11:34:Noris Merino RN) Extremity Numbness/Tingling : None (11/03/2016 11:34:Noris Merino RN) Heart Rhythm: Regular (11/03/2016 11:34:Noris Merino RN) Nailbeds: [place] (11/03/2016 11:34:Noris Merino RN) Capillary Refill: Less than 3 Seconds (11/03/2016 11:34:Noris Merino RN) Lower Extremities Edema: None (11/03/2016 11:34:Noris Merino RN) Lower Extremities Edema Degree: None (11/03/2016 11:34:Noris Merino RN) Upper Extremities Edema: None (11/03/2016 11:34:Noris Merino RN) Upper Extremities Edema Degree: None (11/03/2016 11:34:Noris Merino RN) Facial Edema: None (11/03/2016 11:34:Noris Merino RN) DVT Risk Age: Age less than 41 years (11/03/2016 11:34:Noris Merino RN) DVT Risk BMI: BMI<31 (11/03/2016 11:34:Noris Merino RN) DVT Risk Surgery: None Applicable (11/03/2016 11:34:Noris Merino RN) Respiratory Effort: Unlabored; Regular Rhythm; Equal Expansion (11/03/2016 11:34:Noris Merino RN) Breath Sounds, Left: Clear and Equal (11/03/2016 11:34:Noris Merino RN) Breath Sounds, Right: Clear and Equal (11/03/2016 11:34:Noris Merino RN) Cough Productivity: None (11/03/2016 11:34:Noris Merino RN) Nausea/Vomiting: Denies (11/03/2016 11:34:Noris Merino RN) Bowel Sounds: Normoactive; All Quadrants (11/03/2016 11:34:Noris Merino RN) RUQ Epigastric Pain: Denies (11/03/2016 11:34:Noris Merino RN) Bowel Patterns: Soft, Formed Stool (11/03/2016 11:34:Noris Merino RN) Diet Type: Clear liquid diet (11/03/2016 11:34:Noris Merino RN) Bladder: Nondistended (11/03/2016 11:34:Noris Merino RN) Frequency of Urination: Yes (11/03/2016 11:34:Noris Merino RN) Urination Burning: No (11/03/2016 11:34:Noris Merino RN) Vaginal Bleeding: None (11/03/2016 11:34:Noris Merino RN) Vaginal Discharge Amount: Small (11/03/2016 11:34:Noris Merino RN) Vaginal Discharge Color: N/A (11/03/2016 11:34:Noris Merino RN) Vaginal Discharge Odor: Non-Odorous (11/03/2016 11:34:Noris Merino RN) Vaginal Discharge Character: Thin (11/03/2016 11:34:Noris Merino RN) Skin Color: Normal for Race (11/03/2016 11:34:Noris Merino RN) Skin Temperature: Warm (11/03/2016 11:34:Noris Merino RN) Skin Moisture: Dry (11/03/2016 11:34:Noris Merino RN) Body Piercings/Tattoos: 4 tattoos (11/03/2016 11:34:Noris Merino RN) Montez Scale Sensory Perception: No Impairment- Responds to verbal commands. Has no sensory deficit which would limit ability to feel or voice pain or discomfort (11/03/2016 11:34:Noris Merino RN) Montez Scale Moisture: Rarely Moist- Skin is usually dry. Linen only requires changing at routine intervals (11/03/2016 11:34:Noris Merino RN) Montez Scale Activity: Walks Frequently- Walks outside the room at least twice a day and inside room at least every 2 hours during the day. (11/03/2016 11:34:Noris Merino RN) Montez Scale Mobility: No Limitations- Makes major and frequent changes in position without assistance (11/03/2016 11:34:Noris Merino RN) Montez Scale Nutrition: Excellent- Eats most of every meal. Never refuses a meal. Usually eats a total of 4 or more servings of meat and dairy products. Occasionally eats between meals. Does not require supplementation (11/03/2016 11:34:Noris Merino RN) Montez Scale Friction and Shear: No Apparent Problem- Moves in bed and in chair independently and has sufficient muscle strength to lift up completely during move. Maintains good position in bed or chair at all times (11/03/2016 11:34:Noris Merino RN) Family Support: Significant Other supportive, at bedside frequently (11/03/2016 11:34:Noris Merino RN) Emotional State: Calm/Relaxed (11/03/2016 11:34:Noris Merino RN) Call Schultz Within Reach: Yes (11/03/2016 11:34:Noris Merino RN) Side Rails Up: Yes (11/03/2016 11:34:Noris Merino RN) Bed Wheels Locked: Yes (11/03/2016 11:34:Noris Merino RN) Arm Bands Present: Yes (11/03/2016 11:34:Noris Merino RN) Isolation: [place] (11/03/2016 11:34:Noris Merino RN) Fall Risk History of Falling: (0) No (11/03/2016 11:34:Noris Merino RN) Fall Risk Secondary Diagnosis: (0) No (11/03/2016 11:34:Noris Merino RN) Fall Risk Ambulatory Aid: (0) None/Bedrest/Wheelchair/Nurse Assist (11/03/2016 11:34:Noris Merino RN) Fall Risk IV Therapy: (20) Yes (11/03/2016 11:34:Noris Merino RN) Fall Risk Gait: (0) Normal/Bedrest/Immobile (11/03/2016 11:34:Noris Merino RN) Fall Risk Mental Status: (0) Oriented to Own Ability (11/03/2016 11:34:Noris Merino RN) Recent Exp Communicable Disease: No (11/03/2016 11:34:Noris Merino RN) Cough or Fever: No (11/03/2016 11:34:Noris Merino RN) Foreign Travel Past 10 Days: No (11/03/2016 11:34:Noris Merino RN) Open Wounds or Sores: No (11/03/2016 11:34:Noris Merino RN) Prior Antibiotic Resistance Tx: No (11/03/2016 11:34:Noris Merino RN) Cultures Obtained: Not Applicable (11/03/2016 11:34:Noris Merino RN) Isolation Initiated: No (11/03/2016 11:34:Noris Merino RN) Pt/Family Education: Handwashing Hygiene (11/03/2016 11:34:Noris Merino RN) FHR Baseline Rate (bpm) Baby A: 155 (11/03/2016 11:34:Noris Merino RN) Variability Baby A: Moderate 6-25 bpm (11/03/2016 11:34:Noris Merino RN) Accelerations Baby A: 15X15 (11/03/2016 11:34:Noris Merino RN) Decelerations Baby A: None (11/03/2016 11:34:Noris Merino RN)
--- NOTE | 2016-11-08 14:29 | L&D Flow Sheet ---
LD Flowsheet Datetime Report Generated by CPN: 11/08/2016 14:28 Datetime: 11/03/2016 17:14 Pushing Progress: with Pushing; Pushing Effectively with Contractions (Kristin Kaitlyn, RN) Datetime: 11/03/2016 17:11 Pushing Position: Pushing with Contractions (Kristin Kaitlyn, RN) Pushing Progress: Descent with Pushing (Kristin Kaitlyn, RN) Datetime: 11/03/2016 17:09 Vital Signs NBP Sys/Chula/Mean (mmHg): 127 (QS system process) : 77 (QS system process) : 95 (QS system process) Pulse: 85 (QS system process) Datetime: 11/03/2016 17:06 Monitor Interventions for UA: [place] Adjusted (Kristin Kaitlyn, RN) Datetime: 11/03/2016 17:04 I/O Interventions: Tang Discontinued (Kristin Kaitlyn, RN) Datetime: 11/03/2016 17:02 Stage 2 Pushing: Coached on Pushing (Kristin Kaitlyn, RN) Pushing Position: Pushing Lithotomy (Kristin Kaitlyn, RN) Communication Communication: RN at Bedside; Provider at Bedside (Kristin Kaitlyn, RN) Datetime: 11/03/2016 16:56 Vaginal Exam Dilatation (cm): 10.0 (Kristin Kaitlyn, RN) Effacement (%): 100 (Kristin Kaitlyn, RN) Station: 3 (Kristin Kaitlyn, RN) Exam by: Patrick Miller CNM (Kristin Kaitlyn, RN) Datetime: 11/03/2016 16:55 Vital Signs NBP Sys/Chula/Mean (mmHg): 127 (QS system process) : 72 (QS system process) : 93 (QS system process) Pulse: 93 (QS system process) Datetime: 11/03/2016 16:54 Communication Comments: K. Miller CNM at bedside (Kristin Kaitlyn, RN) Datetime: 11/03/2016 16:39 Vital Signs NBP Sys/[place]ula/Mean (mmHg): 101 (QS system process) : 58 (QS system process) : 76 (QS system process) Pulse: 82 (QS system process) Datetime: 11/03/2016 16:30 Uterine Activity Monitor Mode: External; Palpation (Noris Broman, RN) Quality: Moderate (Noris Broman, RN) Contraction Comments: unable to determine, RN at bedside to adjust TOCO (Noris Broman, RN) FHR Baseline Changes: No Baseline Change (Noris Broman, RN) Datetime: 11/03/2016 16:24 Vital Signs NBP Sys/[place]/Mean (mmHg): 106 (QS system process) : 55 (QS system process) : 78 (QS system process) Pulse: 88 (QS system process) Datetime: 11/03/2016 16:15 Uterine Activity Monitor Mode: External; Palpation (Noris Broman, RN) Monitor Interventions for UA: [place] Adjusted (Noris Broman, RN) Quality: Moderate (Noris Broman, RN) Duration Criteria: Less than Two 120 Second Contractions (Noris Broman, RN) Pattern: Normal: <= 5 Contractions in 10 Minutes (Noris Broman, RN) Resting Tone (Palpate): Relaxed (Noris Broman, RN) Contraction Comments: RN at bedside, TOCO adjusted (Noris Broman, RN) Assessment A Monitor Mode: External US (Noris Broman, RN) FHR Baseline Rate : 130 (Noris Broman, RN) Variability: Moderate 6-25 bpm (Noris Broman, RN) Accelerations: None (Noris Broman, RN) Decelerations: None (Noris Broman, RN) Datetime: 11/03/2016 16:09 Vital Signs NBP Sys/[place]/Mean (mmHg): 111 (QS system process) : 62 (QS system process) : 81 (QS system process) Pulse: 85 (QS system process) Datetime: 11/03/2016 16:00 Uterine Activity Monitor Mode: External; Palpation (Noris Broman, RN) Monitor Interventions for UA: [place] Adjusted (Noris Broman, RN) Quality: Moderate (Noris Broman, RN) Duration Criteria: Less than Two 120 Second Contractions (Noris Broman, RN) Pattern: Normal: <= 5 Contractions in 10 Minutes (Noris Broman, RN) Resting Tone (Palpate): Relaxed (Noris Broman, RN) Contraction Comments: unable to determine, contractions palpated, TOCO adjusted (Noris Broman, RN) Assessment A Monitor Mode: External US (Noris Broman, RN) FHR Baseline Rate : 135 (Noris Broman, RN) FHR Baseline Changes: No Baseline Change (Noris Broman, RN) Variability: Moderate 6-25 bpm (Noris Broman, RN) Accelerations: 15X15 (Noris Broman, RN) Decelerations: None (Noris Broman, RN) Datetime: 11/03/2016 15:54 Vital Signs NBP Sys/[place]/Mean (mmHg): 120 (QS system process) : 71 (QS system process) : 90 (QS system process) Pulse: 88 (QS system process) Datetime: 11/03/2016 15:51 Temperature (F): 98.1 (Noris Broman, RN) Patient Position/Activity: Left Extreme (Noris Broman, RN) Datetime: 11/03/2016 15:48 Vaginal Exam Dilatation (cm): 9.0 (Noris Broman, RN) Effacement (%): 100 (Noris Broman, RN) Station: 1 (Noris Broman, RN) Exam by: Dr. García (Noris Broman, RN) Datetime: 11/03/2016 15:45 Uterine Activity Monitor Mode: External (Noris Broman, RN) Monitor Interventions for UA: [place] Adjusted (Noris Broman, RN) Frequency (min): 2-4 (Noris Broman, RN) Quality: Moderate (Noris Broman, RN) Duration (sec): 60-90 (Noris Broman, RN) Duration Criteria: Less than Two 120 Second Contractions (Noris Broman, RN) Pattern: Normal: <= 5 Contractions in 10 Minutes (Noris Broman, RN) Resting Tone (Palpate): Relaxed (Noris Broman, RN) Assessment A Monitor Mode: External US (Noris Broman, RN) FHR Baseline Rate : 135 (Noris Broman, RN) Variability: Moderate 6-25 bpm (Noris Broman, RN) Accelerations: 15X15 (Noris Broman, RN) Decelerations: None (Noris Broman, RN) Datetime: 11/03/2016 15:41 Vital Signs NBP Sys/[place]/Mean (mmHg): 114 (QS system process) : 70 (QS system process) : 87 (QS system process) Pulse: 88 (QS system process) Datetime: 11/03/2016 15:30 Uterine Activity Monitor Mode: External (Noris Broman, RN) Monitor Interventions for UA: [place] Adjusted (Noris Broman, RN) Frequency (min): 2-4 (Noris Broman, RN) Quality: Moderate (Noris Broman, RN) Duration (sec): 60-90 (Noris Broman, RN) Duration Criteria: Less than Two 120 Second Contractions (Noris Broman, RN) Pattern: Normal: <= 5 Contractions in 10 Minutes (Noris Broman, RN) Resting Tone (Palpate): Relaxed (Noris Broman, RN) Assessment A Monitor Mode: External US (Noris Broman, RN) FHR Baseline Rate : 130 (Noris Broman, RN) Variability: Moderate 6-25 bpm (Noris Broman, RN) Accelerations: 15X15 (Noris Broman, RN) Decelerations: None (Noris Broman, RN) Datetime: 11/03/2016 15:25 Vital Signs NBP Sys/[place]/Mean (mmHg): 114 (QS system process) : 63 (QS system process) : 84 (QS system process) Pulse: 81 (QS system process) Datetime: 11/03/2016 15:15 Uterine Activity Monitor Mode: External; Palpation (Noris Broman, RN) Quality: Moderate (Noris Broman, RN) Duration Criteria: Less than Two 120 Second Contractions (Noris Broman, RN) Pattern: Normal: <= 5 Contractions in 10 Minutes (Noris Broman, RN) Resting Tone (Palpate): Relaxed (Noris Broman, RN) Contraction Comments: unable to determine contractions at this time, TOCO adjusted (Noris Broman, RN) Assessment A Monitor Mode: External US (Onris Broman, RN) Monitor Interventions for FHR: Ultrasound Adjusted (Noris Broman, RN) FHR Baseline Changes: No Baseline Change (Noris Broman, RN) Variability: Moderate 6-25 bpm (Noris Broman, RN) Accelerations: 15X15 (Noris Broman, RN) Decelerations: None (Noris Broman, RN) Comments: unable to determine baselinea at this time, US adjusted and pt repositioned (Noris Broman, RN) Datetime: 11/03/2016 15:14 Vital Signs NBP Sys/[place]/Mean (mmHg): 115 (QS system process) : 56 (QS system process) : 77 (QS system process) Pulse: 81 (QS system process) Datetime: 11/03/2016 15:13 Patient Position/Activity: Right Extreme (Noris Broman, RN) Datetime: 11/03/2016 15:00 Uterine Activity Monitor Mode: External (Noris Broman, RN) Monitor Interventions for UA: [place] Adjusted (Noris Broman, RN) Quality: Moderate (Noris Broman, RN) Duration Criteria: Less than Two 120 Second Contractions (Noris Broman, RN) Pattern: Normal: <= 5 Contractions in 10 Minutes (Noris Broman, RN) Resting Tone (Palpate): Relaxed (Noris Broman, RN) Contraction Comments: unable to determine contractions at this time, TOCO adjusted (Noris Broman, RN) Assessment A Monitor Mode: External US (Noris Broman, RN) FHR Baseline Rate : 140 (Noris Broman, RN) FHR Baseline Changes: No Baseline Change (Noris Broman, RN) Variability: Moderate 6-25 bpm (Noris Broman, RN) Accelerations: 15X15 (Noris Broman, RN) Decelerations: None (Noris Broman, RN) Datetime: 11/03/2016 14:56 Vital Signs NBP Sys/[place]/Mean (mmHg): 108 (QS system process) : 58 (QS system process) : 79 (QS system process) Pulse: 77 (QS system process) Datetime: 11/03/2016 14:45 Uterine Activity Monitor Mode: External; Palpation (Noris Broman, RN) Frequency (min): 3-4 (Noris Broman, RN) Quality: Moderate (Noris Broman, RN) Duration (sec): 90-120 (Noris Broman, RN) Duration Criteria: Less than Two 120 Second Contractions (Noris Broman, RN) Pattern: Normal: <= 5 Contractions in 10 Minutes (Noris Broman, RN) Resting Tone (Palpate): Relaxed (Noris Broman, RN) Assessment A Monitor Mode: External US (Noris Broman, RN) FHR Baseline Rate : 145 (Noris Broman, RN) Variability: Moderate 6-25 bpm (Noris Broman, RN) Accelerations: 15X15 (Noris Broman, RN) Decelerations: None (Noris Broman, RN) Datetime: 11/03/2016 14:39 Vital Signs NBP Sys/[place]/Mean (mmHg): 112 (QS system process) : 61 (QS system process) : 80 (QS system process) Pulse: 83 (QS system process) Datetime: 11/03/2016 14:36 Patient Position/Activity: Left Extreme (Noris Broman, RN) Datetime: 11/03/2016 14:34 Temperature (F): 98.2 (Noris Broman, RN) Maternal Assessment Level of Consciousness: Fully Conscious (Noris Broman, RN) Datetime: 11/03/2016 14:30 Uterine Activity Monitor Mode: External (Noris Broman, RN) Frequency (min): 5-6 (Noris Broman, RN) Quality: Moderate (Noris Broman, RN) Duration (sec): 100-120 (Noris Broman, RN) Duration Criteria: Less than Two 120 Second Contractions (Noris Broman, RN) Pattern: Normal: <= 5 Contractions in 10 Minutes (Noris Broman, RN) Resting Tone (Palpate): Relaxed (Noris Broman, RN) Assessment A Monitor Mode: External US (Noris Broman, RN) FHR Baseline Rate : 140 (Noris Broman, RN) FHR Baseline Changes: No Baseline Change (Noris Broman, RN) Variability: Moderate 6-25 bpm (Noris Broman, RN) Accelerations: 15X15 (Noris Broman, RN) Decelerations: None (Noris Broman, RN) Datetime: 11/03/2016 14:24 Vital Signs NBP Sys/[place]/Mean (mmHg): 114 (QS system process) : 63 (QS system process) : 80 (QS system process) Pulse: 84 (QS system process) Datetime: 11/03/2016 14:15 Uterine Activity Monitor Mode: External (Noris Broman, RN) Frequency (min): 4-6 (Noris Broman, RN) Quality: Moderate (Noris Broman, RN) Duration (sec): 90-120 (Noris Broman, RN) Duration Criteria: Less than Two 120 Second Contractions (Noris Broman, RN) Resting Tone (Palpate): Relaxed (Noris Broman, RN) Assessment A Monitor Mode: External US (Noris Broman, RN) FHR Baseline Rate : 140 (Noris Broman, RN) Variability: Moderate 6-25 bpm (Noris Broman, RN) Accelerations: 15X15 (Noris Broman, RN) Decelerations: None (Noris Broman, RN) Datetime: 11/03/2016 14:09 Vital Signs NBP Sys/[place]/Mean (mmHg): 112 (QS system process) : 59 (QS system process) : 80 (QS system process) Pulse: 82 (QS system process) Datetime: 11/03/2016 14:05 Vaginal Exam Dilatation (cm): 5.0 (Kristin Sahni RN) Effacement (%): 90 (Kristin Sahni RN) Station: 0 (Kristin Sahni RN) Exam by: Patrick Miller CNM (Kristin Sahni RN) Membrane Status: Ruptured (Kristin Sahni RN) Membranes Rupture Method: Artificial (Kristin Sahni RN) Amniotic Fluid Color: Clear (Kristin Sahni RN) Amniotic Fluid Amount: Moderate (Kristin Kaitlyn, RN) Datetime: 11/03/2016 14:00 Uterine Activity Monitor Mode: External (Noris Broman, RN) Frequency (min): 3-5 (Noris Broman, RN) Quality: Moderate (Noris Broman, RN) Duration (sec): 60-120 (Noris Broman, RN) Duration Criteria: Less than Two 120 Second Contractions (Noris Broman, RN) Pattern: Normal: <= 5 Contractions in 10 Minutes (Noris Broman, RN) Resting Tone (Palpate): Relaxed (Noris Broman, RN) Assessment A Monitor Mode: External US (Noris Broman, RN) FHR Baseline Rate : 145 (Noris Broman, RN) Variability: Moderate 6-25 bpm (Noris Broman, RN) Accelerations: 15X15 (Noris Broman, RN) Decelerations: None (Noris Broman, RN) Datetime: 11/03/2016 13:55 Vital Signs NBP Sys/[place]/Mean (mmHg): 124 (QS system process) : 64 (QS system process) : 87 (QS system process) Pulse: 86 (QS system process) Datetime: 11/03/2016 13:45 Uterine Activity Monitor Mode: External (Noris Broman, RN) Frequency (min): 4-5 (Noris Broman, RN) Quality: Moderate (Noris Broman, RN) Duration (sec): 60-90 (Noris Broman, RN) Duration Criteria: Less than Two 120 Second Contractions (Noris Broman, RN) Pattern: Normal: <= 5 Contractions in 10 Minutes (Noris Broman, RN) Resting Tone (Palpate): Relaxed (Noris Broman, RN) Assessment A Monitor Mode: External US (Noris Broman, RN) FHR Baseline Rate : 150 (Noris Broman, RN) Variability: Moderate 6-25 bpm (Noris Broman, RN) Accelerations: 15X15 (Noris Broman, RN) Decelerations: None (Noris Broman, RN) Datetime: 11/03/2016 13:41 Vital Signs NBP Sys/[place]/Mean (mmHg): 129 (QS system process) : 73 (QS system process) : 92 (QS system process) Pulse: 87 (QS system process) Datetime: 11/03/2016 13:30 Uterine Activity Monitor Mode: External (Noris Broman, RN) Frequency (min): 4-5 (Noris Broman, RN) Quality: Moderate (Noris Broman, RN) Duration (sec): 90-120 (Noris Broman, RN) Duration Criteria: Less than Two 120 Second Contractions (Noris Broman, RN) Pattern: Normal: <= 5 Contractions in 10 Minutes (Noris Broman, RN) Resting Tone (Palpate): Relaxed (Noris Broman, RN) Assessment A Monitor Mode: External US (Noris Broman, RN) FHR Baseline Rate : 150 (Noris Broman, RN) Variability: Moderate 6-25 bpm (Noris Broman, RN) Accelerations: 15X15 (Noris Broman, RN) Decelerations: None (Noris Broman, RN) Datetime: 11/03/2016 13:27 Patient Position/Activity: Right Tilt (Noris Broman, RN) Datetime: 11/03/2016 13:24 I/O Interventions: Tang Cath Inserted (Noris Broman, RN) Datetime: 11/03/2016 13:23 Pain Pain Scale: 0 (Noris Broman, RN) Pain Presence: Intermittent (Noris Broman, RN) Pain Type: Cramping (Noris Broman, RN) Pain Location: Abdomen (Noris Broman, RN) Pain Goal: 0 (Noirs Broman, RN) Pain Relief Measures: Epidural Given; Comfort Measures (Noris Broman, RN) Datetime: 11/03/2016 13:18 Vital Signs NBP Sys/[place]/Mean (mmHg): 121 (QS system process) : 58 (QS system process) : 83 (QS system process) Pulse: 92 (QS system process) Datetime: 11/03/2016 13:17 Vital Signs NBP Sys/[place]/Mean (mmHg): 122 (QS system process) : 57 (QS system process) : 82 (QS system process) Pulse: 83 (QS system process) Datetime: 11/03/2016 13:16 Vital Signs NBP Sys/[place]/Mean (mmHg): 125 (QS system process) : 60 (QS system process) : 84 (QS system process) Pulse: 94 (QS system process) Epidural Procedure: Loading Dose (Noris Broman, RN) Datetime: 11/03/2016 13:15 Vital Signs NBP Sys/[place]/Mean (mmHg): 129 (QS system process) : 61 (QS system process) : 85 (QS system process) Pulse: 87 (QS system process) Datetime: 11/03/2016 13:14 Vital Signs NBP Sys/[place]/Mean (mmHg): 128 (QS system process) : 62 (QS system process) : 84 (QS system process) Pulse: 94 (QS system process) Datetime: 11/03/2016 13:13 Vital Signs NBP Sys/[place]/Mean (mmHg): 139 (QS system process) : 80 (QS system process) : 102 (QS system process) Pulse: 90 (QS system process) Datetime: 11/03/2016 13:12 Vital Signs NBP Sys/[place]/Mean (mmHg): 144 (QS system process) : 82 (QS system process) : 107 (QS system process) Pulse: 86 (QS system process) Datetime: 11/03/2016 13:11 Vital Signs NBP Sys/[place]/Mean (mmHg): 137 (QS system process) : 82 (QS system process) : 102 (QS system process) Pulse: 97 (QS system process) Pulse: 94 (QS system process) SpO2 (%): 98 (QS system process) Patient Position/Activity: Supine (Noris Merino, RN) Patient Care Comments: supine after epidural placement (Noris Broman, RN) Datetime: 11/03/2016 13:10 Vital Signs NBP Sys/[place]/Mean (mmHg): 136 (QS system process) : 73 (QS system process) : 100 (QS system process) Pulse: 100 (QS system process) Epidural Procedure: Cath Placed (Noris Broman, RN) Datetime: 11/03/2016 13:09 Pulse: 101 (QS system process) SpO2 (%): 92 (QS system process) Procedure TIME OUT Procedure Verify: Correct Patient Identity; Correct Side and Site are Marked; Accurate Procedure Consent Form; Agreement on Procedure to be Done; Correct Patient Position; Safety Precautions Based on Patient History or Medication Use (Noris Broman, RN) Anesthesia Anesthesia Plans: Epidural (Noris Broman, RN) Epidural Procedure: Test Dose (Noris Broman, RN) Datetime: 11/03/2016 13:08 Procedure TIME OUT Procedure Verify: Correct Patient Identity; Correct Side and Site are Marked; Correct Patient Position (Noris Broman, RN) Epidural Positioning: Sitting (Noris Broman, RN) Datetime: 11/03/2016 13:06 Vital Signs NBP Sys/[place]/Mean (mmHg): 138 (QS system process) : 75 (QS system process) : 101 (QS system process) Pulse: 99 (QS system process) Pulse: 88 (QS system process) SpO2 (%): 99 (QS system process) Datetime: 11/03/2016 13:03 Patient Care Comments: sitting at side of bed for epidural, Dr. Knightshed at bedside for epidural placement (Noris Broman, RN) Datetime: 11/03/2016 13:00 Uterine Activity Monitor Mode: External (Noris Broman, RN) Frequency (min): irregular (Noris Broman, RN) Quality: Moderate (Noris Broman, RN) Duration (sec): 90-120 (Noris Broman, RN) Duration Criteria: Less than Two 120 Second Contractions (Noris Broman, RN) Resting Tone (Palpate): Relaxed (Noris Broman, RN) Assessment A Monitor Mode: External US (Noris Broman, RN) FHR Baseline Rate : 150 (Noris Broman, RN) Variability: Moderate 6-25 bpm (Noris Broman, RN) Accelerations: 15X15 (Noris Broman, RN) Decelerations: None (Noris Broman, RN) Datetime: 11/03/2016 12:55 Procedure TIME OUT Procedure Verify: Correct Patient Identity (Noris Broman, RN) Communication Comments: Dr. Knightshed called to place epidural (Noris Broman, RN) Datetime: 11/03/2016 12:51 Vital Signs NBP Sys/[place]/Mean (mmHg): 123 (QS system process) : 68 (QS system process) : 89 (QS system process) Pulse: 83 (QS system process) Datetime: 11/03/2016 12:45 Patient Care IV/Blood Work: New IV Bag Hung (Noris Broman, RN) Patient Care Comments: 2nd Liter LR hung at this time (Noris Broman, RN) Datetime: 11/03/2016 12:43 I/O Interventions: Up to BR (Noris Broman, RN) Patient Care Comments: off monitor, up to BR (Noris Broman, RN) Datetime: 11/03/2016 12:37 Vital Signs NBP Sys/[place]/Mean (mmHg): 122 (QS system process) : 60 (QS system process) : 83 (QS system process) Pulse: 89 (QS system process) Datetime: 11/03/2016 12:30 Uterine Activity Monitor Mode: External (Noris Broman, RN) Frequency (min): 6-7 (Noris Broman, RN) Quality: Moderate (Noris Broman, RN) Duration (sec): 90-120 (Noris Broman, RN) Duration Criteria: Less than Two 120 Second Contractions (Noris Broman, RN) Resting Tone (Palpate): Relaxed (Noris Broman, RN) Assessment A Monitor Mode: External US (Noris Broman, RN) FHR Baseline Rate : 145 (Noris Broman, RN) Variability: Moderate 6-25 bpm (Noris Broman, RN) Accelerations: 15X15 (Noris Broman, RN) Decelerations: None (Noris Broman, RN) Datetime: 11/03/2016 12:21 Vital Signs NBP Sys/[place]/Mean (mmHg): 115 (QS system process) : 66 (QS system process) : 82 (QS system process) Pulse: 96 (QS system process) Datetime: 11/03/2016 12:06 Vital Signs NBP Sys/[place]/Mean (mmHg): 117 (QS system process) : 55 (QS system process) : 78 (QS system process) Pulse: 82 (QS system process) Datetime: 11/03/2016 11:59 Uterine Activity Monitor Mode: External (Noris Broman, RN) Frequency (min): 6-8 (Noris Broman, RN) Quality: Mild/Moderate (Noris Broman, RN) Duration (sec): 90-120 (Noris Broman, RN) Pattern: Normal: <= 5 Contractions in 10 Minutes (Noris Broman, RN) Resting Tone (Palpate): Relaxed (Noris Broman, RN) Assessment A Monitor Mode: External US (Noris Broman, RN) FHR Baseline Rate : 145 (Noris Broman, RN) Variability: Moderate 6-25 bpm (Norsi Broman, RN) Accelerations: 15X15 (Noris Broman, RN) Decelerations: None (Noris Broman, RN) Datetime: 11/03/2016 11:51 Vital Signs NBP Sys/[place]/Mean (mmHg): 123 (QS system process) : 66 (QS system process) : 87 (QS system process) Pulse: 90 (QS system process) Datetime: 11/03/2016 11:50 Patient Care IV/Blood Work: IV Started; IV Bolus Started (Noris Broman, RN) Patient Care Comments: 18 g placed to L FA, LR bolus started at this time (Noris Broman, RN) Datetime: 11/03/2016 11:44 Vaginal Exam Dilatation (cm): 5.0 (Noris Broman, RN) Effacement (%): 90 (Noris Broman, RN) Station: -1 (Noris Broman, RN) Exam by: Patrick Miller CNM (Noris Broman, RN) Datetime: 11/03/2016 11:42 Patient Care Comments: K. Miller CNM at bedside (Noris Broman, RN) Datetime: 11/03/2016 11:36 Vital Signs NBP Sys/[place]/Mean (mmHg): 121 (QS system process) : 63 (QS system process) : 84 (QS system process) Pulse: 90 (QS system process) Datetime: 11/03/2016 11:34 Monitor Interventions for UA: [place] Adjusted (Noris Broman, RN) Frequency (min): irregular (Noris Broman, RN) Quality: Mild (Noris Broman, RN) Duration (sec): 60-90 (Noris Broman, RN) Pattern: Normal: <= 5 Contractions in 10 Minutes (Noris Broman, RN) Resting Tone (Palpate): Relaxed (Noris Broman, RN) Assessment A Monitor Mode: External US (Noris Broman, RN) FHR Baseline Rate : 155 (Noris Broman, RN) Variability: Moderate 6-25 bpm (Noris Broman, RN) Accelerations: 15X15 (Noris Broman, RN) Decelerations: None (Noris Broman, RN) Pain Pain Scale: 2 (Noris Broman, RN) Pain Presence: Intermittent (Noris Broman, RN) Pain Type: Cramping; Contraction (Noris Broman, RN) Pain Location: Abdomen (Noris Broman, RN) Pain Goal: 0 (Noris Broman, RN) Pain Relief Measures: Comfort Measures (Noris Broman, RN) Pain Coping: Talking Through Contractions; Breathing Through Contractions (Noirs Broman, RN) Vaginal Bleeding: None (Noris Broman, RN) Maternal Assessment Level of Consciousness: Fully Conscious (Noris Broman, RN) DTR's/Clonus: DTRs 2+; No Clonus (Noris Broman, RN) Headache: Denies (Noris Broman, RN) Breath Sounds, Left: Clear and Equal (Noris Broman, RN) Breath Sounds, Right: Clear and Equal (Noris Broman, RN) Nausea/Vomiting: Denies (Noris Broman, RN) RUQ Epigastric Pain: Denies (Noris Broman, RN) Patient Position/Activity: Left Tilt (Noris Broman, RN) Teaching Instructional Method: Verbal; Written (Noris Merino, RN) Plan of Care: Plan of Care Discussed; Vaginal Delivery; Labor (Noris Merino RN) Unit Routine: [place] to Room; Call Schultz; Bed; Visiting Policy; Waiting Areas; Infant Security; Phone/Cell Phone Use; Photography; Unit Personnel; Consents Signed; Handwashing; Flu/Illness Precautions; Monitoring; IV Pumps; Safety/Fall Risk Prevention; Diet/Nutrition Services; Bathroom Privileges; Routine Time Outs; Medications (Noris Merino RN) Labor/Induction: Labor Stages; Activity (Noris Merino RN) Pain Management: Epidural (Noris Merino RN) Related: Common Discomforts of ; Maternal Physical Changes; Maternal Emotional Changes; Nutrition; Hydration; Activity and Rest (Noris Merino RN) Datetime: 11/03/2016 10:07 Communication Comments: Patrick Miller CNM notified of pts complaints, NST, and vag exam, order received for discharge and for pt to keep currently scheduled appointment (Noris Merino RN) Datetime: 11/03/2016 10:05 Vital Signs NBP Sys/[place]/Mean (mmHg): 115 (QS system process) : 59 (QS system process) : 80 (QS system process) Pulse: 90 (QS system process) Datetime: 11/03/2016 10:02 Vaginal Exam Dilatation (cm): 2.5 (Noris Broman, RN) Effacement (%): 80 (Noris Broman, RN) Station: -2 (Noris Broman, RN) Exam by: AElizabet Sahni RN/Raul Merino RN (Noris Broman, RN) Datetime: 11/03/2016 09:50 Vital Signs NBP Sys/[place]/Mean (mmHg): 114 (QS system process) : 63 (QS system process) : 82 (QS system process) Pulse: 96 (QS system process) Datetime: 11/03/2016 09:49 Patient Position/Activity: Left Tilt (Noris Broman, RN) Patient Care Comments: pt back in bed at this time, pt states contractions felt better when up moving (Noris Broman, RN) Datetime: 11/03/2016 09:00 Patient Care Comments: pt off monitor to walk in [place] for 1 hr (Noris Broman, RN) Datetime: 11/03/2016 08:57 Vital Signs NBP Sys/[place]/Mean (mmHg): 109 (QS system process) : 55 (QS system process) : 79 (QS system process) Pulse: 86 (QS system process) Datetime: 11/03/2016 08:49 Uterine Activity Monitor Mode: External; Palpation (Noris Broman, RN) Frequency (min): irregular (Noris Broman, RN) Quality: Mild/Moderate (Noris Broman, RN) Duration Criteria: Less than Two 120 Second Contractions (Noris Broman, RN) Pattern: Normal: <= 5 Contractions in 10 Minutes (Noris Broman, RN) Resting Tone (Palpate): Relaxed (Noris Broman, RN) Assessment A Monitor Mode: External US (Noris Broman, RN) Monitor Interventions for FHR: Ultrasound Adjusted (Noris Broman, RN) FHR Baseline Rate : 150 (Noris Broman, RN) Variability: Moderate 6-25 bpm (Noris Broman, RN) Accelerations: 15X15 (Noris Broman, RN) Decelerations: None (Noris Broman, RN) Datetime: 11/03/2016 08:45 Pain Pain Scale: 1 (Noris Broman, RN) Pain Presence: Intermittent (Noris Broman, RN) Pain Type: Cramping; Contraction (Noris Broman, RN) Pain Location: Abdomen (Noris Broman, RN) Pain Goal: 0 (Noris Broman, RN) Pain Relief Measures: Comfort Measures (Noris Broman, RN) Pain Coping: Talking Through Contractions (Noris Broman, RN) Membrane Status: Intact (Noris Broman, RN) Vaginal Bleeding: None (Noris Broman, RN) Maternal Assessment Level of Consciousness: Fully Conscious (Noris Broman, RN) DTR's/Clonus: DTRs 2+; No Clonus (Noris Broman, RN) Headache: Denies (Noris Broman, RN) Breath Sounds, Left: Clear and Equal (Noris Broman, RN) Breath Sounds, Right: Clear and Equal (Noris Broman, RN) Nausea/Vomiting: Denies (Noris Broman, RN) RUQ Epigastric Pain: Denies (Noris Broman, RN) Datetime: 11/03/2016 08:40 Vital Signs NBP Sys/Cuhla/Mean (mmHg): 105 (QS system process) : 55 (QS system process) : 75 (QS system process) Pulse: 84 (QS system process) Datetime: 11/03/2016 08:36 Vaginal Exam Dilatation (cm): 2.5 (Kristin Kaitlyn, RN) Effacement (%): 80 (Kristin Kaitlyn, RN) Station: -2 (Kristin Kaitlyn, RN) Exam by: A. Kaitlyn RN (Kristin Kaitlyn, RN) Datetime: 11/03/2016 08:25 Vital Signs NBP Sys/Chula/Mean (mmHg): 120 (QS system process) : 58 (QS system process) : 83 (QS system process) Pulse: 96 (QS system process) Datetime: 11/03/2016 08:23 Monitor Interventions for UA: [place] Adjusted (Noris Merino RN) Monitor Interventions for FHR: Ultrasound Adjusted (Noris Merino RN) Patient Position/Activity: Left Tilt (Noris Merino RN)
--- NOTE | 2016-11-08 14:33 | L&D Current Admission ---
Current Admit Datetime Report Generated by CPN: 11/08/2016 14:33 ADMISSION INFORMATION Current Admit Date/Time: 11/03/2016 11:27 (11/03/2016 11:36:Noris Merino RN) Reason for Admission: Onset of Labor (11/03/2016 11:36:Noris Merino RN) Chief Complaint: Contractions (11/03/2016 11:34:Noris Merino RN) Chief Complaint: Contractions (11/03/2016 08:45:Noris Merino RN) EGA per Dates: 38.0 (11/03/2016 11:36:QS system process) Method of Arrival: Ambulatory (11/03/2016 11:36:Noris Merino RN) Admitted From: Dr. Office (11/03/2016 11:36:Noris Merino RN) Reason for Induction: Not Applicable (11/03/2016 11:36:Noris Merino RN) Records Available: Yes (11/03/2016 11:36:Noris Merino RN) General Admission Information: Reviewed; Confirmed (11/03/2016 11:36:Noris Merino RN) BELONGINGS/ADVANCED DIRECTIVES Valuables/Personal Effects: Jewelry (11/03/2016 11:36:Noris Merino RN) Disposition of Belongings: Kept with Patient (11/03/2016 11:36:Noris Merino RN) Advance Direct for Healthcare: No, and Wants No Information (11/03/2016 11:36:Noris Merino RN) Durable Power of Tire Mold Tester: No (11/03/2016 11:36:Noris Merino RN) Living Will: No (11/03/2016 11:36:Noris Merino RN) Organ Donor: No (11/03/2016 11:36:Noris Merino RN) Pt Rights Information Given: Yes (11/03/2016 11:36:Noris Merino RN) Pt Understands Pt Rights: Yes (11/03/2016 11:36:Noris Merino RN) LEARNING ASSESSMENT Knowledge Level: Understands L_D Process (11/03/2016 11:36:Noris Merino RN) Barriers to Learning: None (11/03/2016 11:36:Noris Merino RN) Learning Readiness: Motivated (11/03/2016 11:36:Noris Merino RN) Learns Best By: 1 to 1 Instruction (11/03/2016 11:36:Noris Merino RN) Learning Needs: Labor and Delivery Process; Pain Management; Symptoms to Report; Treatment Plan; Medication; Diagnosis; Nutrition; Equipment; Infant Care; Community Resources (11/03/2016 11:36:Noris Merino RN) DOMESTIC VIOLANCE SCREENING Dom Viol Threatened/Hurt: No (11/03/2016 11:36:Noris Merino RN) Hx of Abuse/Neglect past 2yrs: No (11/03/2016 11:36:Noris Merino RN) Feel Unsafe Going Home: No (11/03/2016 11:36:Noris Merino RN) Addt'l Observ Indicating Abuse: No (11/03/2016 11:36:Noris Merino RN) Considered Personal Harm/Suicide: No (11/03/2016 11:36:Noris Merino RN) NUTRITIONAL/FUNCTIONAL SCREENING Problem with Appetite >5 Days: No (11/03/2016 11:36:Noris Merino RN) Chew/Swallow Difficulties: No (11/03/2016 11:36:Noris Merino RN) Inappropriate Wt Gain/Loss: No (11/03/2016 11:36:Noris Merino RN) Presence Skin Breakdown/Ulcer: No (11/03/2016 11:36:Noris Merino RN) Special Diet: No (11/03/2016 11:36:Noris Merino RN) Pt Requests Accountant Systems Visit: No (11/03/2016 11:36:Noris Merino RN) Hx of Any of the Following?: N/A (11/03/2016 11:36:Noris Merino RN) New Diagnosis of: Gest Diabetes (11/03/2016 11:36:Noris Merino RN) Requires Assist w/Ambulation: No (11/03/2016 11:36:Noris Merino RN) Uses Assist Device to Ambulate: No (11/03/2016 11:36:Noris Merino RN) Pt Requires Help w/ADL's: No (11/03/2016 11:36:Noris Merino RN)
--- NOTE | 2016-11-08 17:25 | L&D Discharge Summary ---
OB Discharge Summary Datetime Report Generated by CPN: 11/08/2016 17:25 DISCHARGE DIAGNOSIS Diagnosis/Symptoms: False Labor Gestation: 38.0 Number of Babies in Womb: 1 Parity: 0 DIET/ACTIVITY/RESTRICTIONS Diet: Regular Activity: Normal Activity TEACHING/INSTRUCTIONS/REFERRALS Instructions Given To: Patient/ Instructions Understood: Patient Verbalized Understanding; Support Person Verbalized Understanding Referrals: None Educational Materials- Other: [facility] Full Term Labor DISCHARGE INFORMATION Discharged AMA: No Discharge Date/Time: 11/03/2016 10:20 Discharged To: Home Discharge Provider Name: Patrick Miller CNM Accompanied By: Discharge Method: Ambulatory Condition: Stable FOLLOW UP INFORMATION Follow Up With: [facility] Follow Up On: As Scheduled Follow Up Phone Number: [facility] - GENERAL INSTR-CALL PROVIDER IF: Contractions: Contractions or cramps become more frequent than 8 in one hour or 4 in 20 minutes; Regular painful contractions every 5 minutes or less for one hour. Time your contractions from the beginning of one to the beginning of the next Pressure: Pressure in your vagina or lower abdomen that may feel like the baby is pushing down Gush of Fluid/Blood: Gush of fluid or blood from your vagina (it is normal to have spotting after vaginal exam or intercourse) Vaginal Discharge: Change in the type or amount of vaginal discharge Decreased Movement: Your baby is not moving as much as usual- 4 movements in 1 hour after drinking and resting on side
--- NOTE | 2016-11-10 18:01 | L&D General Admission ---
General Admit Datetime Report Generated by CPN: 11/10/2016 18:00 INFORMATION Patient Age: 20 (11/03/2016 08:06:QS system process) EDC: 11/17/2016 00:00 (11/03/2016 08:29:Noris Merino RN) : 1 (11/03/2016 08:29:Noris Merino RN) Para: 0 (11/03/2016 08:29:Noris Merino RN) Term: 0 (11/03/2016 08:29:Elsy Brooks RNOswaldo) : 0 (11/03/2016 08:29:Esly Brooks RNOswaldo) Spontaneous Abortions: 0 (11/03/2016 08:29:Elsy Brooks RNOswaldo) Induced Abortions: 0 (11/03/2016 08:29:Elsy Brooks RNOswaldo) Livin (11/03/2016 08:29:Elsy Brooks RNC) Cesareans: 0 (11/03/2016 08:29:GIRISH Ramírez) VBACs: 0 (11/03/2016 08:29:GIRISH Ramírez) Ectopic: 0 (11/03/2016 08:29:Elsy Brooks Oswaldo) Multiple Births: 0 (11/03/2016 08:29:GIRISH Ramírez) Baby, Number in Womb: 1 (11/03/2016 08:29:Melony Cooper RN) CARE Primary Assistant Spa Director: [facility] (11/03/2016 08:29:Noris Merino RN) Adequate Care: Yes (11/03/2016 08:29:Noris Merino RN) Height (in): 62 (11/05/2016 08:50:QS system process) ALLERGIES Medication Allergy: No (11/03/2016 08:29:Noris Merino RN) Medication Allergies: shrimp/MO/Hives (11/03/2016) (11/03/2016 23:59:QS system process) Latex Allergy: No Latex Allergies (11/03/2016 08:29:Noris Merino RN) COMMUNICATION Primary Language: Nigerien (11/03/2016 08:29:Noris Merino RN) Medical Tx Preferred Language: Nigerien (11/03/2016 08:29:Kristin Sahni RN) Communication Barrier(s): None (11/03/2016 08:29:Melony Cooper RN) DEMOGRAPHICS Address: [address] [place] [address] [place] [address] (11/03/2016 08:06:QS system process) Zipcode: [address] (11/03/2016 08:06:QS system process) Home (11/03/2016 08:06:QS system process) SSN: [id number] (11/03/2016 08:06:QS system process) Next of Kin Name: EHSAN MCCOLLUM (11/03/2016 08:06:QS system process) Next of Kin (11/03/2016 08:06:QS system process) Next of Kin Relationship: SPO (11/03/2016 08:06:QS system process) Date of : 1995 (11/03/2016 08:06:QS system process) Marital Status: (11/03/2016 08:06:QS system process) Sex: Female (11/03/2016 08:06:QS system process) Race: Other (11/03/2016 08:06:QS system process) Ethnicity: or (11/03/2016 08:06:QS system process) Cheondoism: None (11/03/2016 08:06:QS system process) DRUG AND ALCOHOL USE Alcohol: No (11/03/2016 08:29:Noris Merino RN) Cigarettes: Never Smoker. [id number] (11/03/2016 08:29:Noris Merino RN) Marijuana: No (11/03/2016 08:29:Noris Merino RN) Cocaine: No (11/03/2016 08:29:Noris Merino RN) Other Illicit Drugs: No (11/03/2016 08:29:Noris Merino RN) VACCINE HISTORY Influenza Vaccine: Yes (11/03/2016 08:29:Noris Merino RN) Influenza Date: 06/02/16 (11/03/2016 08:29:Noris Merino RN) Pneumococcal Vaccine: No (11/03/2016 08:29:Noris Merino RN) Tetanus Vaccine: Yes (11/03/2016 08:29:Noris Merino RN) Tetanus Date: 08/25/16 (11/03/2016 08:29:Noris Merino RN) Tdap Vaccine: Yes (11/03/2016 08:29:Noris Merino RN) Tdap Date: 08/25/16 (11/03/2016 08:29:Noris Merino RN) Hepatitis B Vaccine: Uncertain (11/03/2016 08:29:Noris Merino RN) Furniture Shampooer: [facility] (11/03/2016 08:29:Noris Merino RN) Feeding Preference: Breast (11/03/2016 08:29:Noris Merino RN) Benefit of Breast Feed Discussed: Yes (11/03/2016 08:29:Noris Merino RN) Circumcision: Yes (11/03/2016 08:29:Noris Merino RN) Classes Attended: No (11/03/2016 08:29:Noris Merino RN) Tubal Ligation: No (11/03/2016 08:29:Noris Merino RN) Tubal Authorization Signed: N/A (11/03/2016 08:29:Noris Merino RN) Consent: N/A (11/03/2016 08:29:Noris Merino RN) Consent Signed: N/A (11/03/2016 08:29:Noris Merino RN) Pain Management Plans: Epidural (11/03/2016 08:29:Noris Merino RN) Plans for Labor and Delivery: Cord Blood Donation (11/03/2016 08:29:Noris Merino RN) Support Person: Ehsan Mccollum (11/03/2016 08:29:Noris Merino RN) Support Person Relationship: (11/03/2016 08:29:Noris Merino RN) Cultural/Spritual Practice: No (11/03/2016 08:29:Noris Merino RN) Spir/Cult Dietary Needs: No (11/03/2016 08:29:Noris Merino RN) LIVING SITUATION/DISCHARGE PLAN Living Arrangements: House (11/03/2016 08:29:Noris Merino RN) Adequate Access to:: Electric; Heat; Refrigeration; Plumbing/Running water; Phone; Transportation (11/03/2016 08:29:Noris Merino RN) WIC Program: No (11/03/2016 08:29:Noris Merino RN) Discharge Package Line Relief Operator Person: Ehsan Mccollum (11/03/2016 08:29:Noris Merino RN) Person to Help after Discharge: Ehsan Mccollum (11/03/2016 08:29:Noris Merino RN) Currently Using Commun Resources: No (11/03/2016 08:29:Noris Merino RN) Outside Agency/Construction Site Manager: No (11/03/2016 08:29:Noris Merino RN) Car Seat for Discharge: Yes (11/03/2016 08:29:Noris Merino RN) Adoption Requested: No (11/03/2016 08:29:Noris Merino RN) LABS Blood Type: O Positive (11/03/2016 08:29:Noris Merino RN) Antibody Screen: Negative (11/03/2016 08:29:Noris Merino RN) Hemoglobin: 9.1 L (11/05/2016 06:36:QS system process) Hematocrit: 27.7 L (11/05/2016 06:36:QS system process) MCV: 87 (11/05/2016 06:36:QS system process) Group Beta Strep: Negative (11/03/2016 08:29:Noris Merino RN) Gonorrhea: Negative (11/03/2016 08:29:Noris Merino RN) Chlamydia: Negative (11/03/2016 08:29:Noris Merino RN) RPR/VDRL: Nonreactive (11/03/2016 08:29:Noris Merino RN) HIV Results: Negative (11/03/2016 08:29:Noris Merino RN) Hepatitis B: Negative (11/03/2016 08:29:Noris Merino RN) Rubella: Immune (11/03/2016 08:29:Noris Merino RN) OB/PREVIOUS HISTORY Previous Procedures: None (11/03/2016 08:29:Noris Merino RN) Current Procedures: Ultrasound; NST (11/03/2016 08:29:Noris Merino RN) History of Previous : No (11/03/2016 08:29:Noris Merino RN) History of Gestational Diabetes: Yes (11/03/2016 08:29:Noris Merino RN) History of PIH: No (11/03/2016 08:29:Noris Merino RN) History of Incompetent Cervix: No (11/03/2016 08:29:Noris Merino RN) History of Placenta Previa/Abrup: No (11/03/2016 08:29:Noris Merino RN) History of Macrosomia: No (11/03/2016 08:29:Noris Merino RN) History of IUGR: No (11/03/2016 08:29:Noris Merino RN) History of Hemorrhage: No (11/03/2016 08:29:Noris Merino RN) History of Loss/Stillborn: No (11/03/2016 08:29:Noris Merino RN) History of : No (11/03/2016 08:29:Noris Merino RN) History of D (Rh) Sensitization: No (11/03/2016 08:29:Noris Merino RN) History Recurrent Loss/Stillborn: No (11/03/2016 08:29:Noris Merino RN) History Depression/PP Depression: No (11/03/2016 08:29:Noris Merino RN) History of Uterine Anomaly/HIRO: No (11/03/2016 08:29:Noris Merino RN) History of Infertility: No (11/03/2016 08:29:Noris Merino RN) History of ART Treatment: No (11/03/2016 08:29:Noris Merino RN) History of HIRO: No (11/03/2016 08:29:Noris Merino RN) MEDICAL HISTORY Med Hx Diabetes: Yes (11/03/2016 08:29:Lou Cuadra RN) Diabetes Type: Gestational Diabetes (11/03/2016 08:29:Lou Cuadra RN) Med Hx Hypertension: No (11/03/2016 08:29:Noris Merino RN) Med Hx Heart Disease: No (11/03/2016 08:29:Noris Merino RN) Med Hx Autoimmune Disorder: No (11/03/2016 08:29:Noris Merino RN) Med Hx Kidney Disease/UTI: No (11/03/2016 08:29:Noris Merino RN) Med Hx Neurologic/Epilepsy: No (11/03/2016 08:29:Noris Merino RN) Med Hx Psychiatric Disorders: No (11/03/2016 08:29:Noris Merino RN) Med Hx Hepatitis/Liver Disease: No (11/03/2016 08:29:Noris Merino RN) Med Hx Varicosities/Phlebitis: No (11/03/2016 08:29:Noris Merino RN) Med Hx Thyroid Dysfunction: No (11/03/2016 08:29:Noris Merino RN) Med Hx Trauma/Violence: No (11/03/2016 08:29:Noris Merino RN) Med Hx Blood Transfusion: No (11/03/2016 08:29:Noris Merino RN) Med Hx Pulmonary (Asthma,TB): No (11/03/2016 08:29:Noris Merino RN) Med Hx Breast: No (11/03/2016 08:29:Noris Merino RN) Med Hx [employer] Surgery: No (11/03/2016 08:29:Noris Merino RN) Med Hx Hospitalization/Surgery: No (11/03/2016 08:29:Noris Merino RN) Med Hx Anesthetic Complications: No (11/03/2016 08:29:Noris Merino RN) Med Hx Abnormal Pap Smear: No (11/03/2016 08:29:Noris Merino RN) Other Medical Diseases: No (11/03/2016 08:29:Noris Merino RN) Med Hx Significant Family Hx: No (11/03/2016 08:29:Noris Merino RN) Details of Med/Surg Hx: GDM-diet controlled (11/03/2016 08:29:Lou Cuadra RN) INFECTIOUS HISTORY Inf Hx Gonorrhea: No (11/03/2016 08:29:Noris Merino RN) Inf Hx Chlamydia: No (11/03/2016 08:29:Noris Merino RN) Inf Hx Syphilis: No (11/03/2016 08:29:Noris Merino RN) Inf Hx HIV/AIDS: No (11/03/2016 08:29:Noris Merino RN) Inf Hx Human Papilloma Virus: No (11/03/2016 08:29:Noris Merino RN) Inf Hx Pt/Partner Genital Herpes: No (11/03/2016 08:29:Noris Merino RN) Inf Hx Tuberculosis/Exposure: No (11/03/2016 08:29:Noris Merino RN) Inf Hx Hepatitis B,C: No (11/03/2016 08:29:Noris Merino RN) Inf Hx Rash or Viral Illness: No (11/03/2016 08:29:Noris Merino RN) GENETIC HISTORY Gen Hx Age >=35 at DAYANARA: No (11/03/2016 08:29:Noris Merino RN) Gen Hx Thalassemia: No (11/03/2016 08:29:Noris Merino RN) Gen Hx Congenital Heart Defect: No (11/03/2016 08:29:Noris Merino RN) Gen Hx Neural Tube Defect: No (11/03/2016 08:29:Noris Merino RN) Gen Hx Down's Syndrome: No (11/03/2016 08:29:Noris Merino RN) Gen Hx Osmany-Sachs: No (11/03/2016 08:29:Noris Merino RN) Gen Hx Lucila: No (11/03/2016 08:29:Noris Merino RN) Gen Hx Familial Dysautonomia: No (11/03/2016 08:29:Noris Merino RN) Gen Hx Sickle Cell Disease/Trait: No (11/03/2016 08:29:Noris Merino RN) Gen Hx Hemophilia/Blood Disorder: No (11/03/2016 08:29:Noris Merino RN) Gen Hx Muscular Dystrophy: No (11/03/2016 08:29:Noris Merino RN) Gen Hx Cystic Fibrosis: No (11/03/2016 08:29:Noris Merino RN) Gen Hx Huntingtons Chorea: No (11/03/2016 08:29:Noris Merino RN) Gen Hx Mental Retardation/Autism: No (11/03/2016 08:29:Noris Merino RN) Gen Hx Tested for Fragile X: No (11/03/2016 08:29:Noris Merino RN) Gen Hx Other Inher/Chromosomal: No (11/03/2016 08:29:Noris Merino RN) Gen Hx Maternal Metabolic DO: No (11/03/2016 08:29:Noris Merino RN) Gen Hx Pt Father or FOB Defect: No (11/03/2016 08:29:Noris Merino RN) Gen Hx Other Genetic History: No (11/03/2016 08:29:Noris Merino RN) Gen Hx Drugs/Meds since LMP: No (11/03/2016 08:29:Noris Merino RN)
--- NOTE | 2016-11-10 18:01 | L&D Current Admission ---
Current Admit Datetime Report Generated by CPN: 11/10/2016 18:00 ADMISSION INFORMATION Current Admit Date/Time: 11/03/2016 11:27 (11/03/2016 11:36:Noris Merino RN) Reason for Admission: Onset of Labor (11/03/2016 11:36:Noris Merino RN) Chief Complaint: Contractions (11/03/2016 11:34:oNris Merino RN) EGA per Dates: 38.0 (11/03/2016 11:36:QS system process) Method of Arrival: Ambulatory (11/03/2016 11:36:Noris Merino RN) Admitted From: Dr. Office (11/03/2016 11:36:Noris Merino RN) Reason for Induction: Not Applicable (11/03/2016 11:36:Noris Merino RN) Records Available: Yes (11/03/2016 11:36:Noris Merino RN) General Admission Information: Reviewed; Confirmed (11/03/2016 11:36:Noris Merino RN) BELONGINGS/ADVANCED DIRECTIVES Valuables/Personal Effects: Jewelry (11/03/2016 11:36:Noris Merino RN) Disposition of Belongings: Kept with Patient (11/03/2016 11:36:Noris Merino RN) Advance Direct for Healthcare: No, and Wants No Information (11/03/2016 11:36:Noris Merino RN) Durable Power of Benefits Director: No (11/03/2016 11:36:Noris Merino RN) Living Will: No (11/03/2016 11:36:Noris Merino RN) Organ Donor: No (11/03/2016 11:36:Noris Merino RN) Pt Rights Information Given: Yes (11/03/2016 11:36:Noris Merino RN) Pt Understands Pt Rights: Yes (11/03/2016 11:36:Noris Merino RN) LEARNING ASSESSMENT Knowledge Level: Understands L_D Process (11/03/2016 11:36:Noris Merino RN) Barriers to Learning: None (11/03/2016 11:36:Noris Merino RN) Learning Readiness: Motivated (11/03/2016 11:36:Noris Merino RN) Learns Best By: 1 to 1 Instruction (11/03/2016 11:36:Noris Merino RN) Learning Needs: Labor and Delivery Process; Pain Management; Symptoms to Report; Treatment Plan; Medication; Diagnosis; Nutrition; Equipment; Infant Care; Community Resources (11/03/2016 11:36:Noris Merino RN) DOMESTIC VIOLANCE SCREENING Dom Viol Threatened/Hurt: No (11/03/2016 11:36:Noris Merino RN) Hx of Abuse/Neglect past 2yrs: No (11/03/2016 11:36:Noris Merino RN) Feel Unsafe Going Home: No (11/03/2016 11:36:Noris Merino RN) Addt'l Observ Indicating Abuse: No (11/03/2016 11:36:Noris Merino RN) Considered Personal Harm/Suicide: No (11/03/2016 11:36:Noris Merino RN) NUTRITIONAL/FUNCTIONAL SCREENING Problem with Appetite >5 Days: No (11/03/2016 11:36:Noris Merino RN) Chew/Swallow Difficulties: No (11/03/2016 11:36:Noris Merino RN) Inappropriate Wt Gain/Loss: No (11/03/2016 11:36:Noris Merino RN) Presence Skin Breakdown/Ulcer: No (11/03/2016 11:36:Noris Merino RN) Special Diet: No (11/03/2016 11:36:Noris Merino RN) Pt Requests Team Assembly Line Machine Operator Visit: No (11/03/2016 11:36:Noris Merino RN) Hx of Any of the Following?: N/A (11/03/2016 11:36:Noris Merino RN) New Diagnosis of: Gest Diabetes (11/03/2016 11:36:Noris Merino RN) Requires Assist w/Ambulation: No (11/03/2016 11:36:Noris Merino RN) Uses Assist Device to Ambulate: No (11/03/2016 11:36:Noris Merino RN) Pt Requires Help w/ADL's: No (11/03/2016 11:36:Noris Merino RN)
--- NOTE | 2016-11-10 18:02 | L&D General Admission ---
General Admit Datetime Report Generated by CPN: 11/10/2016 18:00 INFORMATION Patient Age: 20 (11/03/2016 08:06:QS system process) EDC: 11/17/2016 00:00 (11/03/2016 08:29:Noris Merino RN) : 1 (11/03/2016 08:29:Noris Merino RN) Para: 0 (11/03/2016 08:29:Noris Merino RN) Term: 0 (11/03/2016 08:29:Elsy Brooks RNOswaldo) : 0 (11/03/2016 08:29:Elsy Brooks RNOswaldo) Spontaneous Abortions: 0 (11/03/2016 08:29:Elsy Brooks RNOswaldo) Induced Abortions: 0 (11/03/2016 08:29:Elsy Brooks RNOswaldo) Livin (11/03/2016 08:29:Elsy Brooks RNC) Cesareans: 0 (11/03/2016 08:29:GIRISH Ramírez) VBACs: 0 (11/03/2016 08:29:GIRISH Ramírez) Ectopic: 0 (11/03/2016 08:29:Elsy Brooks Oswaldo) Multiple Births: 0 (11/03/2016 08:29:GIRISH Ramírez) Baby, Number in Womb: 1 (11/03/2016 08:29:Melony Cooper RN) CARE Primary Barrel Liner: [facility] (11/03/2016 08:29:Noris Merino RN) Adequate Care: Yes (11/03/2016 08:29:Noris Merino RN) Height (in): 62 (11/05/2016 08:50:QS system process) ALLERGIES Medication Allergy: No (11/03/2016 08:29:Noris Merino RN) Medication Allergies: shrimp/MO/Hives (11/03/2016) (11/03/2016 23:59:QS system process) Latex Allergy: No Latex Allergies (11/03/2016 08:29:Noris Merino RN) COMMUNICATION Primary Language: Citizen [place] (11/03/2016 08:29:Noris Merino RN) Medical Tx Preferred Language: Citizen [place] (11/03/2016 08:29:Kristin Sahni RN) Communication Barrier(s): None (11/03/2016 08:29:Melony Cooper RN) DEMOGRAPHICS Address: [address] [place] [address] [place] [address] (11/03/2016 08:06:QS system process) Zipcode: [address] (11/03/2016 08:06:QS system process) Home (11/03/2016 08:06:QS system process) SSN: [id number] (11/03/2016 08:06:QS system process) Next of Kin Name: EHSAN MCCOLLUM (11/03/2016 08:06:QS system process) Next of Kin (11/03/2016 08:06:QS system process) Next of Kin Relationship: SPO (11/03/2016 08:06:QS system process) Date of : 1995 (11/03/2016 08:06:QS system process) Marital Status: (11/03/2016 08:06:QS system process) Sex: Female (11/03/2016 08:06:QS system process) Race: Other (11/03/2016 08:06:QS system process) Ethnicity: or (11/03/2016 08:06:QS system process) Synagogue: None (11/03/2016 08:06:QS system process) DRUG AND ALCOHOL USE Alcohol: No (11/03/2016 08:29:Noris Merino RN) Cigarettes: Never Smoker. [id number] (11/03/2016 08:29:Noris Merino RN) Marijuana: No (11/03/2016 08:29:Noris Merino RN) Cocaine: No (11/03/2016 08:29:Noris Merino RN) Other Illicit Drugs: No (11/03/2016 08:29:Noris Merino RN) VACCINE HISTORY Influenza Vaccine: Yes (11/03/2016 08:29:Noris Merino RN) Influenza Date: 06/02/16 (11/03/2016 08:29:Noris Merino RN) Pneumococcal Vaccine: No (11/03/2016 08:29:Noris Merino RN) Tetanus Vaccine: Yes (11/03/2016 08:29:Noris Merino RN) Tetanus Date: 08/25/16 (11/03/2016 08:29:Noris Merino RN) Tdap Vaccine: Yes (11/03/2016 08:29:Noris Merino RN) Tdap Date: 08/25/16 (11/03/2016 08:29:Noris Merino RN) Hepatitis B Vaccine: Uncertain (11/03/2016 08:29:Noris Merino RN) Water Registrar: [facility] (11/03/2016 08:29:Noris Merino RN) Feeding Preference: Breast (11/03/2016 08:29:Noris Merino RN) Benefit of Breast Feed Discussed: Yes (11/03/2016 08:29:Noris Merino RN) Circumcision: Yes (11/03/2016 08:29:Noris Merino RN) Classes Attended: No (11/03/2016 08:29:Noris Merino RN) Tubal Ligation: No (11/03/2016 08:29:Noris Merino RN) Tubal Authorization Signed: N/A (11/03/2016 08:29:Noris Merino RN) Consent: N/A (11/03/2016 08:29:Noris Merino RN) Consent Signed: N/A (11/03/2016 08:29:Noris Merino RN) Pain Management Plans: Epidural (11/03/2016 08:29:Noris Merino RN) Plans for Labor and Delivery: Cord Blood Donation (11/03/2016 08:29:Noris Merino RN) Support Person: Ehsan Mccollum (11/03/2016 08:29:Noris Merino RN) Support Person Relationship: (11/03/2016 08:29:Noris Merino RN) Cultural/Spritual Practice: No (11/03/2016 08:29:Noris Merino RN) Spir/Cult Dietary Needs: No (11/03/2016 08:29:Noris Merino RN) LIVING SITUATION/DISCHARGE PLAN Living Arrangements: House (11/03/2016 08:29:Noris Merino RN) Adequate Access to:: Electric; Heat; Refrigeration; Plumbing/Running water; Phone; Transportation (11/03/2016 08:29:Noris Merino RN) WIC Program: No (11/03/2016 08:29:Noris Merino RN) Discharge Packer Sausage And Wiener Person: Ehsan Mccollum (11/03/2016 08:29:Noris Merino RN) Person to Help after Discharge: Ehsan Mccollum (11/03/2016 08:29:Noris Merino RN) Currently Using Commun Resources: No (11/03/2016 08:29:Noris Merino RN) Outside Agency/Wafer Cutter: No (11/03/2016 08:29:Noris Merino RN) Car Seat for Discharge: Yes (11/03/2016 08:29:Noris Merino RN) Adoption Requested: No (11/03/2016 08:29:Noris Merino RN) LABS Blood Type: O Positive (11/03/2016 08:29:Noris Merino RN) Antibody Screen: Negative (11/03/2016 08:29:Noris Merino RN) Hemoglobin: 9.1 L (11/05/2016 06:36:QS system process) Hematocrit: 27.7 L (11/05/2016 06:36:QS system process) MCV: 87 (11/05/2016 06:36:QS system process) Group Beta Strep: Negative (11/03/2016 08:29:Noris Merino RN) Gonorrhea: Negative (11/03/2016 08:29:Noris Merino RN) Chlamydia: Negative (11/03/2016 08:29:Noris Merino RN) RPR/VDRL: Nonreactive (11/03/2016 08:29:Noris Merino RN) HIV Results: Negative (11/03/2016 08:29:Noris Merino RN) Hepatitis B: Negative (11/03/2016 08:29:Noris Merino RN) Rubella: Immune (11/03/2016 08:29:Noris Merino RN) OB/PREVIOUS HISTORY Previous Procedures: None (11/03/2016 08:29:Noris Merino RN) Current Procedures: Ultrasound; NST (11/03/2016 08:29:Noris Merino RN) History of Previous : No (11/03/2016 08:29:Noris Merino RN) History of Gestational Diabetes: Yes (11/03/2016 08:29:Noris Merino RN) History of PIH: No (11/03/2016 08:29:Noris Merino RN) History of Incompetent Cervix: No (11/03/2016 08:29:Noris Merino RN) History of Placenta Previa/Abrup: No (11/03/2016 08:29:Noris Merino RN) History of Macrosomia: No (11/03/2016 08:29:Noris Merino RN) History of IUGR: No (11/03/2016 08:29:Noris Merino RN) History of Hemorrhage: No (11/03/2016 08:29:Noris Merino RN) History of Loss/Stillborn: No (11/03/2016 08:29:Noris Merino RN) History of : No (11/03/2016 08:29:Noris Merino RN) History of D (Rh) Sensitization: No (11/03/2016 08:29:Noris Merino RN) History Recurrent Loss/Stillborn: No (11/03/2016 08:29:Noris Merino RN) History Depression/PP Depression: No (11/03/2016 08:29:Noris Merino RN) History of Uterine Anomaly/HIRO: No (11/03/2016 08:29:Noris Merino RN) History of Infertility: No (11/03/2016 08:29:Noris Merino RN) History of ART Treatment: No (11/03/2016 08:29:Noris Merino RN) History of HIRO: No (11/03/2016 08:29:Noris Merino RN) MEDICAL HISTORY Med Hx Diabetes: Yes (11/03/2016 08:29:Lou Cuadra RN) Diabetes Type: Gestational Diabetes (11/03/2016 08:29:Lou Cuadra RN) Med Hx Hypertension: No (11/03/2016 08:29:Noris Merino RN) Med Hx Heart Disease: No (11/03/2016 08:29:Noris Merino RN) Med Hx Autoimmune Disorder: No (11/03/2016 08:29:Noris Merino RN) Med Hx Kidney Disease/UTI: No (11/03/2016 08:29:Noris Merino RN) Med Hx Neurologic/Epilepsy: No (11/03/2016 08:29:Noris Merino RN) Med Hx Psychiatric Disorders: No (11/03/2016 08:29:Noris Merino RN) Med Hx Hepatitis/Liver Disease: No (11/03/2016 08:29:Noris Merino RN) Med Hx Varicosities/Phlebitis: No (11/03/2016 08:29:Noris Merino RN) Med Hx Thyroid Dysfunction: No (11/03/2016 08:29:Noris Merino RN) Med Hx Trauma/Violence: No (11/03/2016 08:29:Noris Merino RN) Med Hx Blood Transfusion: No (11/03/2016 08:29:Noris Merino RN) Med Hx Pulmonary (Asthma,TB): No (11/03/2016 08:29:Noris Merino RN) Med Hx Breast: No (11/03/2016 08:29:Noris Merino RN) Med Hx CLINICAL LAB SCIENTIST Surgery: No (11/03/2016 08:29:Noris Merino RN) Med Hx Hospitalization/Surgery: No (11/03/2016 08:29:Noris Merino RN) Med Hx Anesthetic Complications: No (11/03/2016 08:29:Noris Merino RN) Med Hx Abnormal Pap Smear: No (11/03/2016 08:29:Noris Merino RN) Other Medical Diseases: No (11/03/2016 08:29:Noris Merino RN) Med Hx Significant Family Hx: No (11/03/2016 08:29:Noris Merino RN) Details of Med/Surg Hx: GDM-diet controlled (11/03/2016 08:29:Lou Cuadra RN) INFECTIOUS HISTORY Inf Hx Gonorrhea: No (11/03/2016 08:29:Noris Merino RN) Inf Hx Chlamydia: No (11/03/2016 08:29:Noris Merino RN) Inf Hx Syphilis: No (11/03/2016 08:29:Noris Merino RN) Inf Hx HIV/AIDS: No (11/03/2016 08:29:Noris Merino RN) Inf Hx Human Papilloma Virus: No (11/03/2016 08:29:Noris Merino RN) Inf Hx Pt/Partner Genital Herpes: No (11/03/2016 08:29:Noris Merino RN) Inf Hx Tuberculosis/Exposure: No (11/03/2016 08:29:Noris Merino RN) Inf Hx Hepatitis B,C: No (11/03/2016 08:29:Noris Merino RN) Inf Hx Rash or Viral Illness: No (11/03/2016 08:29:Noris Merino RN) GENETIC HISTORY Gen Hx Age >=35 at DAYANARA: No (11/03/2016 08:29:Noris Merino RN) Gen Hx Thalassemia: No (11/03/2016 08:29:Noris Merino RN) Gen Hx Congenital Heart Defect: No (11/03/2016 08:29:Noris Merino RN) Gen Hx Neural Tube Defect: No (11/03/2016 08:29:Noris Merino RN) Gen Hx Down's Syndrome: No (11/03/2016 08:29:Noris Merino RN) Gen Hx Osmany-Sachs: No (11/03/2016 08:29:Noris Merino RN) Gen Hx Lucila: No (11/03/2016 08:29:Noris Merino RN) Gen Hx Familial Dysautonomia: No (11/03/2016 08:29:Noris Merino RN) Gen Hx Sickle Cell Disease/Trait: No (11/03/2016 08:29:Noris Merino RN) Gen Hx Hemophilia/Blood Disorder: No (11/03/2016 08:29:Noris Merino RN) Gen Hx Muscular Dystrophy: No (11/03/2016 08:29:Noris Merino RN) Gen Hx Cystic Fibrosis: No (11/03/2016 08:29:Noris Merino RN) Gen Hx Huntingtons Chorea: No (11/03/2016 08:29:Noris Merino RN) Gen Hx Mental Retardation/Autism: No (11/03/2016 08:29:Noris Merino RN) Gen Hx Tested for Fragile X: No (11/03/2016 08:29:Noris Merino RN) Gen Hx Other Inher/Chromosomal: No (11/03/2016 08:29:Noris Merino RN) Gen Hx Maternal Metabolic DO: No (11/03/2016 08:29:Noris Merino RN) Gen Hx Pt Father or FOB Defect: No (11/03/2016 08:29:Noris Merino RN) Gen Hx Other Genetic History: No (11/03/2016 08:29:Noris Merino RN) Gen Hx Drugs/Meds since LMP: No (11/03/2016 08:29:Noris Merino RN)
--- NOTE | 2016-11-10 20:23 | Delivery Summary ---
Del Sum A-C Datetime Report Generated by CPN: 11/10/2016 20:20 DELIVERY PERSONNEL DELIVERY PERSONNEL: [phone];[id number] Delivery Doctor:: Rufina Yin MD Labor and Delivery Nurse:: Kristin Sahni RNnuclear technician Nurse:: Noris Merino RN Senior Gis Analyst/PRECISION PRINTING WORKER: Kristen Knapp CNA II Additional Personnel: : GIRISH Ramírez MATERNAL INFORMATION Delivery Anesthesia: Local; Epidural Medications After Delivery: Pitocin Bolus-Please Comment; Methergine 0.2mg IM; Other-Please Comment Meds After Delivery Comment: pitocin 20 units in 1000 ml nss open for bolus, Cytotec 1000 mcg rectal , methergin 0.2 mg im to left thigh Estimated Blood Loss (ml): 500 Maternal Complications: None Provider Comments: Pt preogressed to of male with apgars 9 and 9. Head delivered OA. Shoulders and body delivered easily. RECORDS CUSTODIAN/OP bulb suctioned. Cord clamped and cut. Placenta spont and intact. Cytotec 1000mcg pr and methergine 1 amp IM given due to intiial uterine atony. Now firm and lochia light. LABOR SUMMARY EDC: 11/17/2016 00:00 No. Babies in Womb: 1 Attempted: No Labor Anesthesia: Epidural LABOR INFORMATION Reason for Induction: Not Applicable Onset of Labor: 11/03/2016 10:30 Complete Dilatation: 11/03/2016 16:26 Oxytocin: N/A Group B Beta Strep: Negative Antibiotics # of Doses: 0 Steroids Given: None Reason Steroids Not Administered: Not Applicable MEMBRANES Membranes Rupture Method: Artificial Rupture of Membranes: 11/03/2016 14:05 Length of Rupture (hr): 3.17 Amniotic Fluid Color: Clear Amniotic Fluid Amount: Moderate Amniotic Fluid Odor: None STAGES OF LABOR Stage 1 hr: 5 Stage 1 min: 56 Stage 2 hr: 0 Stage 2 min: 49 Stage 3 hr: 0 Stage 3 min: 2 Total Time in Labor hr: 6 Total Time in Labor min: 47 VAGINAL DELIVERY Episiotomy: None Laceration Extension: First Degree Other Laceration: right labial Laceration Repair: Yes Laceration Repair Note: with 1 poercent lidocaine and 3-0 chromic Sponge Count Correct: N/A Sharps Count Correct: N/A CSECTION DELIVERY Primary Indication: N/A Secondary Indication: N/A CSection Incidence: N/A Labor: N/A Elective: N/A CSection Incision: N/A BABY A INFORMATION Infant Delivery Date/Time: 11/03/2016 17:15 Method of Delivery: Vaginal Born in Route : No : N/A Forceps: N/A Vacuum Extraction: N/A Shoulder Dystocia : No PRESENTATION/POSITION BABY A Presentation: Cephalic Cephalic Presentation: Vertex Vertex Position: Right Occipital Anterior Breech Presentation: N/A PLACENTA INFORMATION BABY A Placenta Delivery Time : 11/03/2016 17:17 Placenta Method of Delivery: Spontaneous Placenta Status: Delivered SCORES BABY A Heart Rate 1 min: >100 bpm Resp Effort 1 min: Good Cry Reflex Irritability 1 min: Cough or Sneeze or Pulls Away Muscle Tone 1 min: Active Motion Color 1 min: Body [place], Extremities Blue Resuscitation Effort 1 min: Tactile Stimulation SCORE 1 MIN: 9 Heart Rate 5 min: >100 bpm Resp Effort 5 min: Good Cry Reflex Irritability 5 min: Cough or Sneeze or Pulls Away Muscle Tone 5 min: Active Motion Color 5 min: Body [place], Extremities Blue Resuscitation Effort 5 min: N/A SCORE 5 MIN: 9 Resuscitation Effort 10 min: N/A INFORMATION BABY A Gestational Age at Delivery: 38.0 Gestational Status: Early Term- 37- 38.6 Weeks Outcome : Liveborn Condition : Stable Infant Sex: Male IDENTIFICATION BABY A Infant Verification Date/Time: 11/03/2016 17:29 ID Band Number: [id number] Mother's Name Verified: Yes Infant RN Verifying : Elsy Laguna Additional Verifying Personnel: D Miguel US WEIGHT/LENGTH BABY A Birthweight (gm): 3010 Weight (lb): 6 Weight (oz): 10 Infant Length (in): 19.50 Length (cm): 49.53 CORD INFORMATION BABY A No. Cord Vessels: 3 Nuchal Cord : N/A Cord Blood Taken: Yes-For Eval (Mom's Blood Type - or O+) Suction: Mouth; Nose ASSESSMENT BABY A Infant Complications: None Physical Findings at Delivery: Within Normal Limits Respirations: Appears Normal Skin to Skin: Yes Skin to Skin Time (min): 60 Door Clamper/ALS Called : No Care By: a donnie, rn Transferred To: Remains with Mother BABY B INFORMATION : N/A SIGNATURES Signature: with User ID: [email or web address] : I was personally available for consultation and serving as supervising physician for the P.
--- NOTE | 2016-11-10 20:23 | L&D General Admission ---
General Admit Datetime Report Generated by CPN: 11/10/2016 20:20 INFORMATION Patient Age: 20 (11/03/2016 08:06:QS system process) EDC: 11/17/2016 00:00 (11/03/2016 08:29:Noris Merino RN) : 1 (11/03/2016 08:29:Noris Merino RN) Para: 0 (11/03/2016 08:29:Noris Merino RN) Term: 0 (11/03/2016 08:29:Elsy Brooks RNOswaldo) : 0 (11/03/2016 08:29:Elsy Brooks RNOswaldo) Spontaneous Abortions: 0 (11/03/2016 08:29:Elsy Brooks RNOswaldo) Induced Abortions: 0 (11/03/2016 08:29:Elsy Brooks RNOswaldo) Livin (11/03/2016 08:29:Elsy Brooks RNC) Cesareans: 0 (11/03/2016 08:29:GIRISH Ramírez) VBACs: 0 (11/03/2016 08:29:GIRISH Ramírez) Ectopic: 0 (11/03/2016 08:29:Elsy Brooks Oswaldo) Multiple Births: 0 (11/03/2016 08:29:GIRISH Ramírez) Baby, Number in Womb: 1 (11/03/2016 08:29:Melony Cooper RN) CARE Primary Hiv/Aids Care Nurse: [facility] (11/03/2016 08:29:Noris Merino RN) Adequate Care: Yes (11/03/2016 08:29:Noris Merino RN) Height (in): 62 (11/05/2016 08:50:QS system process) ALLERGIES Medication Allergy: No (11/03/2016 08:29:Noris Merino RN) Medication Allergies: shrimp/MO/Hives (11/03/2016) (11/03/2016 23:59:QS system process) Latex Allergy: No Latex Allergies (11/03/2016 08:29:Noris Merino RN) COMMUNICATION Primary Language: [place] Islander (11/03/2016 08:29:Noris Merino RN) Medical Tx Preferred Language: [place] Islander (11/03/2016 08:29:Kristin Sahni RN) Communication Barrier(s): None (11/03/2016 08:29:Melony Cooper RN) DEMOGRAPHICS Address: [address] [place] [address] [place] [address] (11/03/2016 08:06:QS system process) Zipcode: [address] (11/03/2016 08:06:QS system process) Home (11/03/2016 08:06:QS system process) SSN: [id number] (11/03/2016 08:06:QS system process) Next of Kin Name: EHSAN MCCOLLUM (11/03/2016 08:06:QS system process) Next of Kin (11/03/2016 08:06:QS system process) Next of Kin Relationship: SPO (11/03/2016 08:06:QS system process) Date of : 1995 (11/03/2016 08:06:QS system process) Marital Status: (11/03/2016 08:06:QS system process) Sex: Female (11/03/2016 08:06:QS system process) Race: Other (11/03/2016 08:06:QS system process) Ethnicity: or (11/03/2016 08:06:QS system process) Oriental Orthodox: None (11/03/2016 08:06:QS system process) DRUG AND ALCOHOL USE Alcohol: No (11/03/2016 08:29:Noris Merino RN) Cigarettes: Never Smoker. [id number] (11/03/2016 08:29:Noris Merino RN) Marijuana: No (11/03/2016 08:29:Noris Merino RN) Cocaine: No (11/03/2016 08:29:Noris Merino RN) Other Illicit Drugs: No (11/03/2016 08:29:Noris Merino RN) VACCINE HISTORY Influenza Vaccine: Yes (11/03/2016 08:29:Noris Merino RN) Influenza Date: 06/02/16 (11/03/2016 08:29:Noris Merino RN) Pneumococcal Vaccine: No (11/03/2016 08:29:Noris Merino RN) Tetanus Vaccine: Yes (11/03/2016 08:29:Noris Merino RN) Tetanus Date: 08/25/16 (11/03/2016 08:29:Noris Merino RN) Tdap Vaccine: Yes (11/03/2016 08:29:Noris Merino RN) Tdap Date: 08/25/16 (11/03/2016 08:29:Noris Merino RN) Hepatitis B Vaccine: Uncertain (11/03/2016 08:29:Noris Merino RN) Associate Scientist: [facility] (11/03/2016 08:29:Noris Merino RN) Feeding Preference: Breast (11/03/2016 08:29:Noris Merino RN) Benefit of Breast Feed Discussed: Yes (11/03/2016 08:29:Noris Merino RN) Circumcision: Yes (11/03/2016 08:29:Noris Merino RN) Classes Attended: No (11/03/2016 08:29:Noris Merino RN) Tubal Ligation: No (11/03/2016 08:29:Noris Merino RN) Tubal Authorization Signed: N/A (11/03/2016 08:29:Noris Merino RN) Consent: N/A (11/03/2016 08:29:Noris Merino RN) Consent Signed: N/A (11/03/2016 08:29:Noris Merino RN) Pain Management Plans: Epidural (11/03/2016 08:29:Noris Merino RN) Plans for Labor and Delivery: Cord Blood Donation (11/03/2016 08:29:Noris Merino RN) Support Person: Ehsan Mccollum (11/03/2016 08:29:Noris Merino RN) Support Person Relationship: (11/03/2016 08:29:Noris Merino RN) Cultural/Spritual Practice: No (11/03/2016 08:29:Noris Merino RN) Spir/Cult Dietary Needs: No (11/03/2016 08:29:Noris Merino RN) LIVING SITUATION/DISCHARGE PLAN Living Arrangements: House (11/03/2016 08:29:Noris Merino RN) Adequate Access to:: Electric; Heat; Refrigeration; Plumbing/Running water; Phone; Transportation (11/03/2016 08:29:Noris Merino RN) WIC Program: No (11/03/2016 08:29:Noris Merino RN) Discharge Box Shook Patcher Person: Ehsan Mccollum (11/03/2016 08:29:Noris Merino RN) Person to Help after Discharge: Ehsan Mccollum (11/03/2016 08:29:Noris Merino RN) Currently Using Commun Resources: No (11/03/2016 08:29:Noris Merino RN) Outside Agency/Lining Marker: No (11/03/2016 08:29:Noris Merino RN) Car Seat for Discharge: Yes (11/03/2016 08:29:Noris Merino RN) Adoption Requested: No (11/03/2016 08:29:Noris Merino RN) LABS Blood Type: O Positive (11/03/2016 08:29:Noris Merino RN) Antibody Screen: Negative (11/03/2016 08:29:Noris Merino RN) Hemoglobin: 9.1 L (11/05/2016 06:36:QS system process) Hematocrit: 27.7 L (11/05/2016 06:36:QS system process) MCV: 87 (11/05/2016 06:36:QS system process) Group Beta Strep: Negative (11/03/2016 08:29:Noris Merino RN) Gonorrhea: Negative (11/03/2016 08:29:oNris Merino RN) Chlamydia: Negative (11/03/2016 08:29:Noris Merino RN) RPR/VDRL: Nonreactive (11/03/2016 08:29:Noris Merino RN) HIV Results: Negative (11/03/2016 08:29:Noris Merino RN) Hepatitis B: Negative (11/03/2016 08:29:Noris Merino RN) Rubella: Immune (11/03/2016 08:29:Noris Merino RN) OB/PREVIOUS HISTORY Previous Procedures: None (11/03/2016 08:29:Noris Merino RN) Current Procedures: Ultrasound; NST (11/03/2016 08:29:Noris Merino RN) History of Previous : No (11/03/2016 08:29:Noris Merino RN) History of Gestational Diabetes: Yes (11/03/2016 08:29:Noris Merino RN) History of PIH: No (11/03/2016 08:29:Noris Merino RN) History of Incompetent Cervix: No (11/03/2016 08:29:Noris Merino RN) History of Placenta Previa/Abrup: No (11/03/2016 08:29:Noris Merino RN) History of Macrosomia: No (11/03/2016 08:29:Noris Merino RN) History of IUGR: No (11/03/2016 08:29:Noris Merino RN) History of Hemorrhage: No (11/03/2016 08:29:Noris Merino RN) History of Loss/Stillborn: No (11/03/2016 08:29:Noris Merino RN) History of : No (11/03/2016 08:29:Noris Merino RN) History of D (Rh) Sensitization: No (11/03/2016 08:29:Noris Merino RN) History Recurrent Loss/Stillborn: No (11/03/2016 08:29:Noris Merino RN) History Depression/PP Depression: No (11/03/2016 08:29:Noris Merino RN) History of Uterine Anomaly/HIRO: No (11/03/2016 08:29:Noris Merino RN) History of Infertility: No (11/03/2016 08:29:Noris Merino RN) History of ART Treatment: No (11/03/2016 08:29:Noris Merino RN) History of HIRO: No (11/03/2016 08:29:Noris Merino RN) MEDICAL HISTORY Med Hx Diabetes: Yes (11/03/2016 08:29:Lou Cuadra RN) Diabetes Type: Gestational Diabetes (11/03/2016 08:29:Lou Cuadra RN) Med Hx Hypertension: No (11/03/2016 08:29:Noris Merino RN) Med Hx Heart Disease: No (11/03/2016 08:29:Noris Merino RN) Med Hx Autoimmune Disorder: No (11/03/2016 08:29:Noris Merino RN) Med Hx Kidney Disease/UTI: No (11/03/2016 08:29:Noris Merino RN) Med Hx Neurologic/Epilepsy: No (11/03/2016 08:29:Noris Merino RN) Med Hx Psychiatric Disorders: No (11/03/2016 08:29:Noris Merino RN) Med Hx Hepatitis/Liver Disease: No (11/03/2016 08:29:Noris Merino RN) Med Hx Varicosities/Phlebitis: No (11/03/2016 08:29:Noris Merino RN) Med Hx Thyroid Dysfunction: No (11/03/2016 08:29:Noris Merino RN) Med Hx Trauma/Violence: No (11/03/2016 08:29:Noris Merino RN) Med Hx Blood Transfusion: No (11/03/2016 08:29:Noris Merino RN) Med Hx Pulmonary (Asthma,TB): No (11/03/2016 08:29:Noris Merino RN) Med Hx Breast: No (11/03/2016 08:29:Noris Merino RN) Med Hx BUSINESS OBJECTS Surgery: No (11/03/2016 08:29:Noris Merino RN) Med Hx Hospitalization/Surgery: No (11/03/2016 08:29:Noris Merino RN) Med Hx Anesthetic Complications: No (11/03/2016 08:29:Noris Merino RN) Med Hx Abnormal Pap Smear: No (11/03/2016 08:29:Noris Merino RN) Other Medical Diseases: No (11/03/2016 08:29:Noris Merino RN) Med Hx Significant Family Hx: No (11/03/2016 08:29:Noris Merino RN) Details of Med/Surg Hx: GDM-diet controlled (11/03/2016 08:29:Lou Cuadra RN) INFECTIOUS HISTORY Inf Hx Gonorrhea: No (11/03/2016 08:29:Noris Merino RN) Inf Hx Chlamydia: No (11/03/2016 08:29:Noris Merino RN) Inf Hx Syphilis: No (11/03/2016 08:29:Noris Merino RN) Inf Hx HIV/AIDS: No (11/03/2016 08:29:Noris Merino RN) Inf Hx Human Papilloma Virus: No (11/03/2016 08:29:Noris Merino RN) Inf Hx Pt/Partner Genital Herpes: No (11/03/2016 08:29:Noris Merino RN) Inf Hx Tuberculosis/Exposure: No (11/03/2016 08:29:Noris Merino RN) Inf Hx Hepatitis B,C: No (11/03/2016 08:29:Noris Merino RN) Inf Hx Rash or Viral Illness: No (11/03/2016 08:29:Noris Merino RN) GENETIC HISTORY Gen Hx Age >=35 at DAYANARA: No (11/03/2016 08:29:Noris Merino RN) Gen Hx Thalassemia: No (11/03/2016 08:29:Noris Merino RN) Gen Hx Congenital Heart Defect: No (11/03/2016 08:29:Noris Merino RN) Gen Hx Neural Tube Defect: No (11/03/2016 08:29:Noris Merino RN) Gen Hx Down's Syndrome: No (11/03/2016 08:29:Noris Merino RN) Gen Hx Osmany-Sachs: No (11/03/2016 08:29:Noris Merino RN) Gen Hx Lucila: No (11/03/2016 08:29:Noris Merino RN) Gen Hx Familial Dysautonomia: No (11/03/2016 08:29:Noris Merino RN) Gen Hx Sickle Cell Disease/Trait: No (11/03/2016 08:29:Noris Merino RN) Gen Hx Hemophilia/Blood Disorder: No (11/03/2016 08:29:Noris Merino RN) Gen Hx Muscular Dystrophy: No (11/03/2016 08:29:Noris Merino RN) Gen Hx Cystic Fibrosis: No (11/03/2016 08:29:Noris Merino RN) Gen Hx Huntingtons Chorea: No (11/03/2016 08:29:Noris Merino RN) Gen Hx Mental Retardation/Autism: No (11/03/2016 08:29:Noris Merino RN) Gen Hx Tested for Fragile X: No (11/03/2016 08:29:Noris Merino RN) Gen Hx Other Inher/Chromosomal: No (11/03/2016 08:29:Noris Merino RN) Gen Hx Maternal Metabolic DO: No (11/03/2016 08:29:Noris Merino RN) Gen Hx Pt Father or FOB Defect: No (11/03/2016 08:29:Noris Merino RN) Gen Hx Other Genetic History: No (11/03/2016 08:29:Nrois Merino RN) Gen Hx Drugs/Meds since LMP: No (11/03/2016 08:29:Noris Merino RN)
--- NOTE | 2016-11-10 20:27 | L&D Current Admission ---
Current Admit Datetime Report Generated by CPN: 11/10/2016 20:20 ADMISSION INFORMATION Current Admit Date/Time: 11/03/2016 11:27 (11/03/2016 11:36:Noris Merino RN) Reason for Admission: Onset of Labor (11/03/2016 11:36:Noris Merino RN) Chief Complaint: Contractions (11/03/2016 11:34:Noris Merino RN) EGA per Dates: 38.0 (11/03/2016 11:36:QS system process) Method of Arrival: Ambulatory (11/03/2016 11:36:Noris Merino RN) Admitted From: Dr. Office (11/03/2016 11:36:Noris Merino RN) Reason for Induction: Not Applicable (11/03/2016 11:36:Noris Merino RN) Records Available: Yes (11/03/2016 11:36:Noris Merino RN) General Admission Information: Reviewed; Confirmed (11/03/2016 11:36:Noris Merino RN) BELONGINGS/ADVANCED DIRECTIVES Valuables/Personal Effects: Jewelry (11/03/2016 11:36:Noris Merino RN) Disposition of Belongings: Kept with Patient (11/03/2016 11:36:Noris Merino RN) Advance Direct for Healthcare: No, and Wants No Information (11/03/2016 11:36:Noris Merino RN) Durable Power of International Bank Manager: No (11/03/2016 11:36:Noris Merino RN) Living Will: No (11/03/2016 11:36:Noris Merino RN) Organ Donor: No (11/03/2016 11:36:Noris Merino RN) Pt Rights Information Given: Yes (11/03/2016 11:36:Noris Merino RN) Pt Understands Pt Rights: Yes (11/03/2016 11:36:oNris Merino RN) LEARNING ASSESSMENT Knowledge Level: Understands L_D Process (11/03/2016 11:36:Noris Merino RN) Barriers to Learning: None (11/03/2016 11:36:Noris Merino RN) Learning Readiness: Motivated (11/03/2016 11:36:Noris Merino RN) Learns Best By: 1 to 1 Instruction (11/03/2016 11:36:Noris Merino RN) Learning Needs: Labor and Delivery Process; Pain Management; Symptoms to Report; Treatment Plan; Medication; Diagnosis; Nutrition; Equipment; Infant Care; Community Resources (11/03/2016 11:36:Noris Merino RN) DOMESTIC VIOLANCE SCREENING Dom Viol Threatened/Hurt: No (11/03/2016 11:36:Noris Merino RN) Hx of Abuse/Neglect past 2yrs: No (11/03/2016 11:36:Noris Merino RN) Feel Unsafe Going Home: No (11/03/2016 11:36:Noris Merino RN) Addt'l Observ Indicating Abuse: No (11/03/2016 11:36:Noris Merino RN) Considered Personal Harm/Suicide: No (11/03/2016 11:36:Noris Merino RN) NUTRITIONAL/FUNCTIONAL SCREENING Problem with Appetite >5 Days: No (11/03/2016 11:36:Noris Merino RN) Chew/Swallow Difficulties: No (11/03/2016 11:36:Noris Merino RN) Inappropriate Wt Gain/Loss: No (11/03/2016 11:36:Noris Merino RN) Presence Skin Breakdown/Ulcer: No (11/03/2016 11:36:Noris Merino RN) Special Diet: No (11/03/2016 11:36:Noris Merino RN) Pt Requests Resource Program Teacher Visit: No (11/03/2016 11:36:Noris Merino RN) Hx of Any of the Following?: N/A (11/03/2016 11:36:Noris Merino RN) New Diagnosis of: Gest Diabetes (11/03/2016 11:36:Noris Merino RN) Requires Assist w/Ambulation: No (11/03/2016 11:36:Noris Merino RN) Uses Assist Device to Ambulate: No (11/03/2016 11:36:Noris Merino RN) Pt Requires Help w/ADL's: No (11/03/2016 11:36:Noris Merino RN)
--- NOTE | 2016-11-10 20:27 | L&D General Admission ---
General Admit Datetime Report Generated by CPN: 11/10/2016 20:20 INFORMATION Patient Age: 20 (11/03/2016 08:06:QS system process) EDC: 11/17/2016 00:00 (11/03/2016 08:29:Noris Merino RN) : 1 (11/03/2016 08:29:Noris Merino RN) Para: 0 (11/03/2016 08:29:Noris Merino RN) Term: 0 (11/03/2016 08:29:Elsy Brooks RNOswaldo) : 0 (11/03/2016 08:29:Elsy Brooks RNOswaldo) Spontaneous Abortions: 0 (11/03/2016 08:29:Elsy Brooks RNOswaldo) Induced Abortions: 0 (11/03/2016 08:29:Elsy Brooks RNOswaldo) Livin (11/03/2016 08:29:Elsy Brooks RNC) Cesareans: 0 (11/03/2016 08:29:GIRISH Ramírez) VBACs: 0 (11/03/2016 08:29:GIRISH Ramírez) Ectopic: 0 (11/03/2016 08:29:Elsy Brooks Oswaldo) Multiple Births: 0 (11/03/2016 08:29:GIRISH Ramírez) Baby, Number in Womb: 1 (11/03/2016 08:29:Melony Cooper RN) CARE Primary Director Strategy: [facility] (11/03/2016 08:29:Noris eMrino RN) Adequate Care: Yes (11/03/2016 08:29:Noris Merino RN) Height (in): 62 (11/05/2016 08:50:QS system process) ALLERGIES Medication Allergy: No (11/03/2016 08:29:Noris Merino RN) Medication Allergies: shrimp/MO/Hives (11/03/2016) (11/03/2016 23:59:QS system process) Latex Allergy: No Latex Allergies (11/03/2016 08:29:Noris Merino RN) COMMUNICATION Primary Language: Prydeinig (11/03/2016 08:29:Noris Merino RN) Medical Tx Preferred Language: Prydeinig (11/03/2016 08:29:Kristin Sahni RN) Communication Barrier(s): None (11/03/2016 08:29:Melony Cooper RN) DEMOGRAPHICS Address: [address] [place] [address] [place] [address] (11/03/2016 08:06:QS system process) Zipcode: [address] (11/03/2016 08:06:QS system process) Home (11/03/2016 08:06:QS system process) SSN: [id number] (11/03/2016 08:06:QS system process) Next of Kin Name: EHSAN MCCOLLUM (11/03/2016 08:06:QS system process) Next of Kin (11/03/2016 08:06:QS system process) Next of Kin Relationship: SPO (11/03/2016 08:06:QS system process) Date of : 1995 (11/03/2016 08:06:QS system process) Marital Status: (11/03/2016 08:06:QS system process) Sex: Female (11/03/2016 08:06:QS system process) Race: Other (11/03/2016 08:06:QS system process) Ethnicity: or (11/03/2016 08:06:QS system process) Yazidi: None (11/03/2016 08:06:QS system process) DRUG AND ALCOHOL USE Alcohol: No (11/03/2016 08:29:Noris Merino RN) Cigarettes: Never Smoker. [id number] (11/03/2016 08:29:Noris Merino RN) Marijuana: No (11/03/2016 08:29:Noris Merino RN) Cocaine: No (11/03/2016 08:29:Noris Merino RN) Other Illicit Drugs: No (11/03/2016 08:29:Noris Merino RN) VACCINE HISTORY Influenza Vaccine: Yes (11/03/2016 08:29:Noris Merino RN) Influenza Date: 06/02/16 (11/03/2016 08:29:Noris Merino RN) Pneumococcal Vaccine: No (11/03/2016 08:29:Noris Merino RN) Tetanus Vaccine: Yes (11/03/2016 08:29:Noris Merino RN) Tetanus Date: 08/25/16 (11/03/2016 08:29:Noris Merino RN) Tdap Vaccine: Yes (11/03/2016 08:29:Noris Merino RN) Tdap Date: 08/25/16 (11/03/2016 08:29:Noris Merino RN) Hepatitis B Vaccine: Uncertain (11/03/2016 08:29:Noris Merino RN) Drain Tile Press Operator: [facility] (11/03/2016 08:29:Noris Merino RN) Feeding Preference: Breast (11/03/2016 08:29:Noris Merino RN) Benefit of Breast Feed Discussed: Yes (11/03/2016 08:29:Noris Merino RN) Circumcision: Yes (11/03/2016 08:29:Noris Merino RN) Classes Attended: No (11/03/2016 08:29:Noris Merino RN) Tubal Ligation: No (11/03/2016 08:29:Noris Merino RN) Tubal Authorization Signed: N/A (11/03/2016 08:29:Noris Merino RN) Consent: N/A (11/03/2016 08:29:Noris Merino RN) Consent Signed: N/A (11/03/2016 08:29:Noris Merino RN) Pain Management Plans: Epidural (11/03/2016 08:29:Noris Merino RN) Plans for Labor and Delivery: Cord Blood Donation (11/03/2016 08:29:Noris Merino RN) Support Person: Ehsan Mccollum (11/03/2016 08:29:Noris Merino RN) Support Person Relationship: (11/03/2016 08:29:Noris Merino RN) Cultural/Spritual Practice: No (11/03/2016 08:29:Noris Merino RN) Spir/Cult Dietary Needs: No (11/03/2016 08:29:Noris Merino RN) LIVING SITUATION/DISCHARGE PLAN Living Arrangements: House (11/03/2016 08:29:Noris Merino RN) Adequate Access to:: Electric; Heat; Refrigeration; Plumbing/Running water; Phone; Transportation (11/03/2016 08:29:Noris Merino RN) WIC Program: No (11/03/2016 08:29:Noris Merino RN) Discharge Events Manager Person: Ehsan Mccollum (11/03/2016 08:29:Noris Merino RN) Person to Help after Discharge: Ehsan Mccollum (11/03/2016 08:29:Noris Merino RN) Currently Using Commun Resources: No (11/03/2016 08:29:Noris Merino RN) Outside Agency/Home Health Aide: No (11/03/2016 08:29:Noris Merino RN) Car Seat for Discharge: Yes (11/03/2016 08:29:Noris Merino RN) Adoption Requested: No (11/03/2016 08:29:Noris Merino RN) LABS Blood Type: O Positive (11/03/2016 08:29:Noris Merino RN) Antibody Screen: Negative (11/03/2016 08:29:Noris Merino RN) Hemoglobin: 9.1 L (11/05/2016 06:36:QS system process) Hematocrit: 27.7 L (11/05/2016 06:36:QS system process) MCV: 87 (11/05/2016 06:36:QS system process) Group Beta Strep: Negative (11/03/2016 08:29:Noris Merino RN) Gonorrhea: Negative (11/03/2016 08:29:Noris Merino RN) Chlamydia: Negative (11/03/2016 08:29:Noris Merino RN) RPR/VDRL: Nonreactive (11/03/2016 08:29:Noris Merino RN) HIV Results: Negative (11/03/2016 08:29:Noris Merino RN) Hepatitis B: Negative (11/03/2016 08:29:Noris Merino RN) Rubella: Immune (11/03/2016 08:29:Noris Merino RN) OB/PREVIOUS HISTORY Previous Procedures: None (11/03/2016 08:29:Noris Merino RN) Current Procedures: Ultrasound; NST (11/03/2016 08:29:Noris Merino RN) History of Previous : No (11/03/2016 08:29:Noris Merino RN) History of Gestational Diabetes: Yes (11/03/2016 08:29:Noris Merino RN) History of PIH: No (11/03/2016 08:29:Noris Merino RN) History of Incompetent Cervix: No (11/03/2016 08:29:Noris Merino RN) History of Placenta Previa/Abrup: No (11/03/2016 08:29:Noris Merino RN) History of Macrosomia: No (11/03/2016 08:29:Noris Merino RN) History of IUGR: No (11/03/2016 08:29:Noris Merino RN) History of Hemorrhage: No (11/03/2016 08:29:Noris Merino RN) History of Loss/Stillborn: No (11/03/2016 08:29:Noris Merino RN) History of : No (11/03/2016 08:29:Noris Merino RN) History of D (Rh) Sensitization: No (11/03/2016 08:29:Noris Merino RN) History Recurrent Loss/Stillborn: No (11/03/2016 08:29:Noris Merino RN) History Depression/PP Depression: No (11/03/2016 08:29:Noris Merino RN) History of Uterine Anomaly/HIRO: No (11/03/2016 08:29:Noris Merino RN) History of Infertility: No (11/03/2016 08:29:Noris Merino RN) History of ART Treatment: No (11/03/2016 08:29:Noris Merino RN) History of HIRO: No (11/03/2016 08:29:Noris Merino RN) MEDICAL HISTORY Med Hx Diabetes: Yes (11/03/2016 08:29:Lou Cuadra RN) Diabetes Type: Gestational Diabetes (11/03/2016 08:29:Lou Cuadra RN) Med Hx Hypertension: No (11/03/2016 08:29:Noris Merino RN) Med Hx Heart Disease: No (11/03/2016 08:29:Noris Merino RN) Med Hx Autoimmune Disorder: No (11/03/2016 08:29:Noris Merino RN) Med Hx Kidney Disease/UTI: No (11/03/2016 08:29:Noris Merino RN) Med Hx Neurologic/Epilepsy: No (11/03/2016 08:29:Noris Merino RN) Med Hx Psychiatric Disorders: No (11/03/2016 08:29:Noris Merino RN) Med Hx Hepatitis/Liver Disease: No (11/03/2016 08:29:Noris Merino RN) Med Hx Varicosities/Phlebitis: No (11/03/2016 08:29:Noris Merino RN) Med Hx Thyroid Dysfunction: No (11/03/2016 08:29:Noris Merino RN) Med Hx Trauma/Violence: No (11/03/2016 08:29:Noris Merino RN) Med Hx Blood Transfusion: No (11/03/2016 08:29:Noris Merino RN) Med Hx Pulmonary (Asthma,TB): No (11/03/2016 08:29:Noris Merino RN) Med Hx Breast: No (11/03/2016 08:29:Noris Merino RN) Med Hx PRICING MANAGER Surgery: No (11/03/2016 08:29:Noris Merino RN) Med Hx Hospitalization/Surgery: No (11/03/2016 08:29:Noris Merino RN) Med Hx Anesthetic Complications: No (11/03/2016 08:29:Noris Merino RN) Med Hx Abnormal Pap Smear: No (11/03/2016 08:29:Noris Merino RN) Other Medical Diseases: No (11/03/2016 08:29:Noris Merino RN) Med Hx Significant Family Hx: No (11/03/2016 08:29:Noris Merino RN) Details of Med/Surg Hx: GDM-diet controlled (11/03/2016 08:29:Lou Cuadra RN) INFECTIOUS HISTORY Inf Hx Gonorrhea: No (11/03/2016 08:29:Noris Merino RN) Inf Hx Chlamydia: No (11/03/2016 08:29:Noris Merino RN) Inf Hx Syphilis: No (11/03/2016 08:29:Noris Merino RN) Inf Hx HIV/AIDS: No (11/03/2016 08:29:Noris Merino RN) Inf Hx Human Papilloma Virus: No (11/03/2016 08:29:Noris Merino RN) Inf Hx Pt/Partner Genital Herpes: No (11/03/2016 08:29:Noris Merino RN) Inf Hx Tuberculosis/Exposure: No (11/03/2016 08:29:Noris Merino RN) Inf Hx Hepatitis B,C: No (11/03/2016 08:29:Noris Merino RN) Inf Hx Rash or Viral Illness: No (11/03/2016 08:29:Noris Merino RN) GENETIC HISTORY Gen Hx Age >=35 at [place]: No (11/03/2016 08:29:Noris Merino RN) Gen Hx Thalassemia: No (11/03/2016 08:29:Noris Merino RN) Gen Hx Congenital Heart Defect: No (11/03/2016 08:29:Noris Merino RN) Gen Hx Neural Tube Defect: No (11/03/2016 08:29:Noris Merino RN) Gen Hx Down's Syndrome: No (11/03/2016 08:29:Noris Merino RN) Gen Hx Osmany-Sachs: No (11/03/2016 08:29:Noris Merino RN) Gen Hx Lucila: No (11/03/2016 08:29:Noris Merino RN) Gen Hx Familial Dysautonomia: No (11/03/2016 08:29:Noris Merino RN) Gen Hx Sickle Cell Disease/Trait: No (11/03/2016 08:29:Noris Merino RN) Gen Hx Hemophilia/Blood Disorder: No (11/03/2016 08:29:Noris Merino RN) Gen Hx Muscular Dystrophy: No (11/03/2016 08:29:Noris Merino RN) Gen Hx Cystic Fibrosis: No (11/03/2016 08:29:Noris Merino RN) Gen Hx Huntingtons Chorea: No (11/03/2016 08:29:Noris Merino RN) Gen Hx Mental Retardation/Autism: No (11/03/2016 08:29:Noris Merino RN) Gen Hx Tested for Fragile X: No (11/03/2016 08:29:Noris Merino RN) Gen Hx Other Inher/Chromosomal: No (11/03/2016 08:29:Noris Merino RN) Gen Hx Maternal Metabolic DO: No (11/03/2016 08:29:Noris Merino RN) Gen Hx Pt Father or FOB Defect: No (11/03/2016 08:29:Noris Merino RN) Gen Hx Other Genetic History: No (11/03/2016 08:29:Noris Merino RN) Gen Hx Drugs/Meds since LMP: No (11/03/2016 08:29:Noris Merino RN)
--- NOTE | 2016-11-10 20:27 | Delivery Summary ---
Del Sum A-C Datetime Report Generated by CPN: 11/10/2016 20:20 DELIVERY PERSONNEL DELIVERY PERSONNEL: [id number] Delivery Doctor:: Rufina Yin MD Labor and Delivery Nurse:: Kristin Sahni RNperpetual inventory clerk Nurse:: Noris Merino RN Bench Machine Operator/ABRASIVE WORKER: Kristen Knapp CNA II Additional Personnel: : GIRISH Ramírez MATERNAL INFORMATION Delivery Anesthesia: Local; Epidural Medications After Delivery: Pitocin Bolus-Please Comment; Methergine 0.2mg IM; Other-Please Comment Meds After Delivery Comment: pitocin 20 units in 1000 ml nss open for bolus, Cytotec 1000 mcg rectal , methergin 0.2 mg im to left thigh Estimated Blood Loss (ml): 500 Maternal Complications: None Provider Comments: Pt preogressed to of male with apgars 9 and 9. Head delivered OA. Shoulders and body delivered easily. GUTTER HANGER/OP bulb suctioned. Cord clamped and cut. Placenta spont and intact. Cytotec 1000mcg pr and methergine 1 amp IM given due to intiial uterine atony. Now firm and lochia light. LABOR SUMMARY EDC: 11/17/2016 00:00 No. Babies in Womb: 1 Attempted: No Labor Anesthesia: Epidural LABOR INFORMATION Reason for Induction: Not Applicable Onset of Labor: 11/03/2016 10:30 Complete Dilatation: 11/03/2016 16:26 Oxytocin: N/A Group B Beta Strep: Negative Antibiotics # of Doses: 0 Steroids Given: None Reason Steroids Not Administered: Not Applicable MEMBRANES Membranes Rupture Method: Artificial Rupture of Membranes: 11/03/2016 14:05 Length of Rupture (hr): 3.17 Amniotic Fluid Color: Clear Amniotic Fluid Amount: Moderate Amniotic Fluid Odor: None STAGES OF LABOR Stage 1 hr: 5 Stage 1 min: 56 Stage 2 hr: 0 Stage 2 min: 49 Stage 3 hr: 0 Stage 3 min: 2 Total Time in Labor hr: 6 Total Time in Labor min: 47 VAGINAL DELIVERY Episiotomy: None Laceration Extension: First Degree Other Laceration: right labial Laceration Repair: Yes Laceration Repair Note: with 1 poercent lidocaine and 3-0 chromic Sponge Count Correct: N/A Sharps Count Correct: N/A CSECTION DELIVERY Primary Indication: N/A Secondary Indication: N/A CSection Incidence: N/A Labor: N/A Elective: N/A CSection Incision: N/A BABY A INFORMATION Infant Delivery Date/Time: 11/03/2016 17:15 Method of Delivery: Vaginal Born in Route : No : N/A Forceps: N/A Vacuum Extraction: N/A Shoulder Dystocia : No PRESENTATION/POSITION BABY A Presentation: Cephalic Cephalic Presentation: Vertex Vertex Position: Right Occipital Anterior Breech Presentation: N/A PLACENTA INFORMATION BABY A Placenta Delivery Time : 11/03/2016 17:17 Placenta Method of Delivery: Spontaneous Placenta Status: Delivered SCORES BABY A Heart Rate 1 min: >100 bpm Resp Effort 1 min: Good Cry Reflex Irritability 1 min: Cough or Sneeze or Pulls Away Muscle Tone 1 min: Active Motion Color 1 min: Body [place], Extremities Blue Resuscitation Effort 1 min: Tactile Stimulation SCORE 1 MIN: 9 Heart Rate 5 min: >100 bpm Resp Effort 5 min: Good Cry Reflex Irritability 5 min: Cough or Sneeze or Pulls Away Muscle Tone 5 min: Active Motion Color 5 min: Body [place], Extremities Blue Resuscitation Effort 5 min: N/A SCORE 5 MIN: 9 Resuscitation Effort 10 min: N/A INFORMATION BABY A Gestational Age at Delivery: 38.0 Gestational Status: Early Term- 37- 38.6 Weeks Outcome : Liveborn Condition : Stable Infant Sex: Male IDENTIFICATION BABY A Infant Verification Date/Time: 11/03/2016 17:29 ID Band Number: [id number] Mother's Name Verified: Yes Infant RN Verifying : Elsy [place] Additional Verifying Personnel: D Miguel US WEIGHT/LENGTH BABY A Birthweight (gm): 3010 Weight (lb): 6 Weight (oz): 10 Infant Length (in): 19.50 Length (cm): 49.53 CORD INFORMATION BABY A No. Cord Vessels: 3 Nuchal Cord : N/A Cord Blood Taken: Yes-For Eval (Mom's Blood Type - or O+) Suction: Mouth; Nose ASSESSMENT BABY A Infant Complications: None Physical Findings at Delivery: Within Normal Limits Respirations: Appears Normal Skin to Skin: Yes Skin to Skin Time (min): 60 Baseball Glove Stuffer/ALS Called : No Care By: a donnie, rn Transferred To: Remains with Mother BABY B INFORMATION : N/A SIGNATURES Signature: with User ID: [email or web address] : I was personally available for consultation and serving as supervising physician for the P.
--- NOTE | 2016-11-11 06:00 | L&D Current Admission ---
Current Admit Datetime Report Generated by CPN: 11/11/2016 06:00 ADMISSION INFORMATION Current Admit Date/Time: 11/03/2016 11:27 (11/03/2016 11:36:Noris Merino RN) Reason for Admission: Onset of Labor (11/03/2016 11:36:Noris Merino RN) Chief Complaint: Contractions (11/03/2016 11:34:Noris Merino RN) EGA per Dates: 38.0 (11/03/2016 11:36:QS system process) Method of Arrival: Ambulatory (11/03/2016 11:36:Noris Merino RN) Admitted From: Dr. Office (11/03/2016 11:36:Noris Merino RN) Reason for Induction: Not Applicable (11/03/2016 11:36:Noris Merino RN) Records Available: Yes (11/03/2016 11:36:Noris Merino RN) General Admission Information: Reviewed; Confirmed (11/03/2016 11:36:Noris Merino RN) BELONGINGS/ADVANCED DIRECTIVES Valuables/Personal Effects: Jewelry (11/03/2016 11:36:Noris Merino RN) Disposition of Belongings: Kept with Patient (11/03/2016 11:36:Noris Merino RN) Advance Direct for Healthcare: No, and Wants No Information (11/03/2016 11:36:Noris Merino RN) Durable Power of Clinical Social Worker: No (11/03/2016 11:36:Noris Merino RN) Living Will: No (11/03/2016 11:36:Noris Merino RN) Organ Donor: No (11/03/2016 11:36:Noris Merino RN) Pt Rights Information Given: Yes (11/03/2016 11:36:Noris Merino RN) Pt Understands Pt Rights: Yes (11/03/2016 11:36:Noris Merino RN) LEARNING ASSESSMENT Knowledge Level: Understands L_D Process (11/03/2016 11:36:Noris Merino RN) Barriers to Learning: None (11/03/2016 11:36:Noris Merino RN) Learning Readiness: Motivated (11/03/2016 11:36:Noris Merino RN) Learns Best By: 1 to 1 Instruction (11/03/2016 11:36:Noris Merino RN) Learning Needs: Labor and Delivery Process; Pain Management; Symptoms to Report; Treatment Plan; Medication; Diagnosis; Nutrition; Equipment; Infant Care; Community Resources (11/03/2016 11:36:Noris Merino RN) DOMESTIC VIOLANCE SCREENING Dom Viol Threatened/Hurt: No (11/03/2016 11:36:Noris Merino RN) Hx of Abuse/Neglect past 2yrs: No (11/03/2016 11:36:Noris Merino RN) Feel Unsafe Going Home: No (11/03/2016 11:36:Noris Merino RN) Addt'l Observ Indicating Abuse: No (11/03/2016 11:36:Noris Merino RN) Considered Personal Harm/Suicide: No (11/03/2016 11:36:Noris Merino RN) NUTRITIONAL/FUNCTIONAL SCREENING Problem with Appetite >5 Days: No (11/03/2016 11:36:Noris Merino RN) Chew/Swallow Difficulties: No (11/03/2016 11:36:Noris Merino RN) Inappropriate Wt Gain/Loss: No (11/03/2016 11:36:Noris Merino RN) Presence Skin Breakdown/Ulcer: No (11/03/2016 11:36:Noris Merino RN) Special Diet: No (11/03/2016 11:36:Noris Merino RN) Pt Requests Bread Racker Visit: No (11/03/2016 11:36:Noris Merino RN) Hx of Any of the Following?: N/A (11/03/2016 11:36:Noris Merino RN) New Diagnosis of: Gest Diabetes (11/03/2016 11:36:Noris Merino RN) Requires Assist w/Ambulation: No (11/03/2016 11:36:Noris Merino RN) Uses Assist Device to Ambulate: No (11/03/2016 11:36:Noris Merino RN) Pt Requires Help w/ADL's: No (11/03/2016 11:36:Noris Merino RN)
--- NOTE | 2016-11-11 06:00 | L&D General Admission ---
General Admit Datetime Report Generated by CPN: 11/11/2016 06:00 INFORMATION Patient Age: 20 (11/03/2016 08:06:QS system process) EDC: 11/17/2016 00:00 (11/03/2016 08:29:Noris Merino RN) : 1 (11/03/2016 08:29:Noris Merino RN) Para: 0 (11/03/2016 08:29:Noris Merino RN) Term: 0 (11/03/2016 08:29:Elsy Brooks RNOswaldo) : 0 (11/03/2016 08:29:Elsy Brooks RNOswaldo) Spontaneous Abortions: 0 (11/03/2016 08:29:Elsy Brooks RNOswaldo) Induced Abortions: 0 (11/03/2016 08:29:Elsy Brooks RNOswaldo) Livin (11/03/2016 08:29:Elsy Brooks RNC) Cesareans: 0 (11/03/2016 08:29:GIRISH Ramírez) VBACs: 0 (11/03/2016 08:29:GIRISH Ramírez) Ectopic: 0 (11/03/2016 08:29:Elsy Brooks Oswaldo) Multiple Births: 0 (11/03/2016 08:29:GIRISH Ramírez) Baby, Number in Womb: 1 (11/03/2016 08:29:Melony Cooper RN) CARE Primary Maintenance Shop Laborer: [facility] (11/03/2016 08:29:Noris Merino RN) Adequate Care: Yes (11/03/2016 08:29:Noris Merino RN) Height (in): 62 (11/05/2016 08:50:QS system process) ALLERGIES Medication Allergy: No (11/03/2016 08:29:Noris Merino RN) Medication Allergies: shrimp/MO/Hives (11/03/2016) (11/03/2016 23:59:QS system process) Latex Allergy: No Latex Allergies (11/03/2016 08:29:Noris Merino RN) COMMUNICATION Primary Language: [place]orese (11/03/2016 08:29:Noris Merino RN) Medical Tx Preferred Language: [place]se (11/03/2016 08:29:Kristin Sahni RN) Communication Barrier(s): None (11/03/2016 08:29:Melony Cooper RN) DEMOGRAPHICS Address: [address] [place] [address] [place] [address] (11/03/2016 08:06:QS system process) Zipcode: [address] (11/03/2016 08:06:QS system process) Home (11/03/2016 08:06:QS system process) SSN: [id number] (11/03/2016 08:06:QS system process) Next of Kin Name: EHSAN MCCOLLUM (11/03/2016 08:06:QS system process) Next of Kin (11/03/2016 08:06:QS system process) Next of Kin Relationship: SPO (11/03/2016 08:06:QS system process) Date of : 1995 (11/03/2016 08:06:QS system process) Marital Status: (11/03/2016 08:06:QS system process) Sex: Female (11/03/2016 08:06:QS system process) Race: Other (11/03/2016 08:06:QS system process) Ethnicity: or (11/03/2016 08:06:QS system process) Latter Day: None (11/03/2016 08:06:QS system process) DRUG AND ALCOHOL USE Alcohol: No (11/03/2016 08:29:Noris Merino RN) Cigarettes: Never Smoker. [id number] (11/03/2016 08:29:Noris Merino RN) Marijuana: No (11/03/2016 08:29:Noris Merino RN) Cocaine: No (11/03/2016 08:29:Noris Merino RN) Other Illicit Drugs: No (11/03/2016 08:29:Noris Merino RN) VACCINE HISTORY Influenza Vaccine: Yes (11/03/2016 08:29:Noris Merino RN) Influenza Date: 06/02/16 (11/03/2016 08:29:Noris Merino RN) Pneumococcal Vaccine: No (11/03/2016 08:29:Noris Merino RN) Tetanus Vaccine: Yes (11/03/2016 08:29:Noris Merino RN) Tetanus Date: 08/25/16 (11/03/2016 08:29:Noris Merino RN) Tdap Vaccine: Yes (11/03/2016 08:29:Noris Merino RN) Tdap Date: 08/25/16 (11/03/2016 08:29:Noris Merino RN) Hepatitis B Vaccine: Uncertain (11/03/2016 08:29:Noris Merino RN) Community Development Coordinator: [facility] (11/03/2016 08:29:Noris Merino RN) Feeding Preference: Breast (11/03/2016 08:29:Noris Merino RN) Benefit of Breast Feed Discussed: Yes (11/03/2016 08:29:Noris Merino RN) Circumcision: Yes (11/03/2016 08:29:Noris Merino RN) Classes Attended: No (11/03/2016 08:29:Noris Merino RN) Tubal Ligation: No (11/03/2016 08:29:Noris Merino RN) Tubal Authorization Signed: N/A (11/03/2016 08:29:Noris Merino RN) Consent: N/A (11/03/2016 08:29:Noris Merino RN) Consent Signed: N/A (11/03/2016 08:29:Noris Merino RN) Pain Management Plans: Epidural (11/03/2016 08:29:Noris Merino RN) Plans for Labor and Delivery: Cord Blood Donation (11/03/2016 08:29:Noris Merino RN) Support Person: Ehsan Mccollum (11/03/2016 08:29:Noris Merino RN) Support Person Relationship: (11/03/2016 08:29:Noris Merino RN) Cultural/Spritual Practice: No (11/03/2016 08:29:Noris Merino RN) Spir/Cult Dietary Needs: No (11/03/2016 08:29:Noris Merino RN) LIVING SITUATION/DISCHARGE PLAN Living Arrangements: House (11/03/2016 08:29:Noris Merino RN) Adequate Access to:: Electric; Heat; Refrigeration; Plumbing/Running water; Phone; Transportation (11/03/2016 08:29:Noris Merino RN) WIC Program: No (11/03/2016 08:29:Noris Merino RN) Discharge Sewer Pipe Sorter Person: Ehsan Mccollum (11/03/2016 08:29:Noris Merino RN) Person to Help after Discharge: Ehsan Mccollum (11/03/2016 08:29:Noris Merino RN) Currently Using Commun Resources: No (11/03/2016 08:29:Noris Merino RN) Outside Agency/Bakery Sales Clerk: No (11/03/2016 08:29:Noris Merino RN) Car Seat for Discharge: Yes (11/03/2016 08:29:Noris Merino RN) Adoption Requested: No (11/03/2016 08:29:Noris Merino RN) LABS Blood Type: O Positive (11/03/2016 08:29:Noris Merino RN) Antibody Screen: Negative (11/03/2016 08:29:Noris Merino RN) Hemoglobin: 9.1 L (11/05/2016 06:36:QS system process) Hematocrit: 27.7 L (11/05/2016 06:36:QS system process) MCV: 87 (11/05/2016 06:36:QS system process) Group Beta Strep: Negative (11/03/2016 08:29:Noris Merino RN) Gonorrhea: Negative (11/03/2016 08:29:Noris Merino RN) Chlamydia: Negative (11/03/2016 08:29:Noris Merino RN) RPR/VDRL: Nonreactive (11/03/2016 08:29:Noris Merino RN) HIV Results: Negative (11/03/2016 08:29:Noris Merino RN) Hepatitis B: Negative (11/03/2016 08:29:Noris Merino RN) Rubella: Immune (11/03/2016 08:29:Noris Merino RN) OB/PREVIOUS HISTORY Previous Procedures: None (11/03/2016 08:29:Noris Merino RN) Current Procedures: Ultrasound; NST (11/03/2016 08:29:oNris Merino RN) History of Previous : No (11/03/2016 08:29:Noris Merino RN) History of Gestational Diabetes: Yes (11/03/2016 08:29:Noris Merino RN) History of PIH: No (11/03/2016 08:29:Noris Merino RN) History of Incompetent Cervix: No (11/03/2016 08:29:Noris Merino RN) History of Placenta Previa/Abrup: No (11/03/2016 08:29:Noris Merino RN) History of Macrosomia: No (11/03/2016 08:29:Noris Merino RN) History of IUGR: No (11/03/2016 08:29:Noris Merino RN) History of Hemorrhage: No (11/03/2016 08:29:Noris Merino RN) History of Loss/Stillborn: No (11/03/2016 08:29:Noris Merino RN) History of : No (11/03/2016 08:29:Noris Merino RN) History of D (Rh) Sensitization: No (11/03/2016 08:29:Noris Merino RN) History Recurrent Loss/Stillborn: No (11/03/2016 08:29:Noris Merino RN) History Depression/PP Depression: No (11/03/2016 08:29:Noris Merino RN) History of Uterine Anomaly/HIRO: No (11/03/2016 08:29:Noris Merino RN) History of Infertility: No (11/03/2016 08:29:Noris Merino RN) History of ART Treatment: No (11/03/2016 08:29:Noris Merino RN) History of HIRO: No (11/03/2016 08:29:Noris Merino RN) MEDICAL HISTORY Med Hx Diabetes: Yes (11/03/2016 08:29:Lou Cuadra RN) Diabetes Type: Gestational Diabetes (11/03/2016 08:29:Lou Cuadra RN) Med Hx Hypertension: No (11/03/2016 08:29:Noris Merino RN) Med Hx Heart Disease: No (11/03/2016 08:29:Noris Merino RN) Med Hx Autoimmune Disorder: No (11/03/2016 08:29:Noris Merino RN) Med Hx Kidney Disease/UTI: No (11/03/2016 08:29:Noris Merino RN) Med Hx Neurologic/Epilepsy: No (11/03/2016 08:29:Noris Merino RN) Med Hx Psychiatric Disorders: No (11/03/2016 08:29:Noris Merino RN) Med Hx Hepatitis/Liver Disease: No (11/03/2016 08:29:Noris Merino RN) Med Hx Varicosities/Phlebitis: No (11/03/2016 08:29:Noris Merino RN) Med Hx Thyroid Dysfunction: No (11/03/2016 08:29:Noris Merino RN) Med Hx Trauma/Violence: No (11/03/2016 08:29:Noris Merino RN) Med Hx Blood Transfusion: No (11/03/2016 08:29:Noris Merino RN) Med Hx Pulmonary (Asthma,TB): No (11/03/2016 08:29:Noris Merino RN) Med Hx Breast: No (11/03/2016 08:29:Noris Merino RN) Med Hx SPARE FIXER Surgery: No (11/03/2016 08:29:Noris Merino RN) Med Hx Hospitalization/Surgery: No (11/03/2016 08:29:Noris Merino RN) Med Hx Anesthetic Complications: No (11/03/2016 08:29:Noris Merino RN) Med Hx Abnormal Pap Smear: No (11/03/2016 08:29:Noris Merino RN) Other Medical Diseases: No (11/03/2016 08:29:Noris Merino RN) Med Hx Significant Family Hx: No (11/03/2016 08:29:Noris Merino RN) Details of Med/Surg Hx: GDM-diet controlled (11/03/2016 08:29:Lou Cuadra RN) INFECTIOUS HISTORY Inf Hx Gonorrhea: No (11/03/2016 08:29:Noris Merino RN) Inf Hx Chlamydia: No (11/03/2016 08:29:Noris Merino RN) Inf Hx Syphilis: No (11/03/2016 08:29:Noris Merino RN) Inf Hx HIV/AIDS: No (11/03/2016 08:29:Noris Merino RN) Inf Hx Human Papilloma Virus: No (11/03/2016 08:29:Noris Merino RN) Inf Hx Pt/Partner Genital Herpes: No (11/03/2016 08:29:Noris Merino RN) Inf Hx Tuberculosis/Exposure: No (11/03/2016 08:29:Noris Merino RN) Inf Hx Hepatitis B,C: No (11/03/2016 08:29:Noris Merino RN) Inf Hx Rash or Viral Illness: No (11/03/2016 08:29:Noris Merino RN) GENETIC HISTORY Gen Hx Age >=35 at DAYANARA: No (11/03/2016 08:29:Noris Merino RN) Gen Hx Thalassemia: No (11/03/2016 08:29:Noris Merino RN) Gen Hx Congenital Heart Defect: No (11/03/2016 08:29:Noris Merino RN) Gen Hx Neural Tube Defect: No (11/03/2016 08:29:Noris Merino RN) Gen Hx Down's Syndrome: No (11/03/2016 08:29:Noris Merino RN) Gen Hx Osmany-Sachs: No (11/03/2016 08:29:Noris Merino RN) Gen Hx Lucila: No (11/03/2016 08:29:Noris Merino RN) Gen Hx Familial Dysautonomia: No (11/03/2016 08:29:Noris Merino RN) Gen Hx Sickle Cell Disease/Trait: No (11/03/2016 08:29:Noris Merino RN) Gen Hx Hemophilia/Blood Disorder: No (11/03/2016 08:29:Noris Merino RN) Gen Hx Muscular Dystrophy: No (11/03/2016 08:29:Noris Merino RN) Gen Hx Cystic Fibrosis: No (11/03/2016 08:29:Noris Merino RN) Gen Hx Huntingtons Chorea: No (11/03/2016 08:29:Noris Mernio RN) Gen Hx Mental Retardation/Autism: No (11/03/2016 08:29:Noris Merino RN) Gen Hx Tested for Fragile X: No (11/03/2016 08:29:Noris Merino RN) Gen Hx Other Inher/Chromosomal: No (11/03/2016 08:29:Noris Merino RN) Gen Hx Maternal Metabolic DO: No (11/03/2016 08:29:Noris Merino RN) Gen Hx Pt Father or FOB Defect: No (11/03/2016 08:29:Noris Merino RN) Gen Hx Other Genetic History: No (11/03/2016 08:29:Noris Merino RN) Gen Hx Drugs/Meds since LMP: No (11/03/2016 08:29:Noris Merino RN)
== END 2016-11-05 20:15 | disposition home or self-care (01) | DRG 775 ==
LOC: LR 11:33 → 2S 19:45
PROVIDERS: ADMIT Student in an Organized Health Care Education/Training Program; ATTEND Student in an Organized Health Care Education/Training Program
PROC: 10E0XZZ Delivery of Products of Conception, External Approach (ICD-10-PCS; principal; 2016-11-03)
PROC: 0UQMXZZ Repair Vulva, External Approach (ICD-10-PCS; 2016-11-03)
PROC: 10907ZC Drainage of Amniotic Fluid, Therapeutic from Products of Conception, Via Natural or Artificial Opening (ICD-10-PCS; 2016-11-03)
PROC: 4A1HXCZ Monitoring of Products of Conception, Cardiac Rate, External Approach (ICD-10-PCS; 2016-11-03)
DX: O24.420 Gestational diabetes mellitus in childbirth, diet controlled (principal); O99.02 Anemia complicating childbirth; D64.9 Anemia, unspecified; O70.0 First degree perineal laceration during delivery; Z3A.38 38 weeks gestation of pregnancy; Z37.0 Single live birth
CPT/HCPCS: 36415; 85025; 85027; 86592; 86850; 86900; 86901; 88307; 94760; J2210; J2370; J2590; J3010; J3490